=== PATIENT | female | born 1935 | race Caucasian/White ===

== ENCOUNTER → 2018-12-03 | Outpatient (CLI) | payer MEDICARE, BC ==
[~2018-12-03] VITALS: Ht 167.6 cm; Wt 78.9 kg
[~2018-12-03] MED LIST: ALEN70TA2 PO; ESTR0.62 PO; LIDOCAINE 1% INJ 20 ML 20 ML VIAL INJ ONE; NAPR220C11 PO
--- NOTE | 2018-12-03 20:02 | Diagnostic Imaging Report ---
INDICATION: Spiculated right breast mass. Patient presents for stereotactic biopsy. Patient was brought to the mammography suite, placed in a chair in a sitting upright position. The right breast was positioned lateral medial. The spiculated mass in the upper outer right breast posterior depth was stereotactically targeted. The skin was then prepped and draped in usual sterile fashion. Small amount of 1% lidocaine was utilized for local anesthesia. An 8-gauge biopsy needle was advanced into the right breast per the biopsy coordinates. A total of 4 core biopsies were obtained with a vacuum-assisted device. A localizing clip was then deployed. Post procedure image does show the clip did deploy beyond the margins of the biopsy needle. Followup mammogram, however, demonstrated clip to be not visible. This may be owing to the clip coming out of the tract during removal of the biopsy apparatus. Spiculated mass remains. Hemostasis obtained using manual compression. Patient tolerated the procedure well. Patient was sent for post procedure mammogram in satisfactory condition. Post procedure mammogram demonstrates biopsy changes to the spiculated mass in the upper outer right breast. No clip is visible. IMPRESSION: Successful stereotactically assisted biopsy of the spiculated mass in the upper outer right breast. Pathology results are currently pending. Dictated by: Dictated on workstation # [id number]
== END ==
LOC: RAD 10:19
PROVIDERS: ATTEND Nurse Practitioner Family
DX: C50.911 Malignant neoplasm of unspecified site of right female breast (principal)
CPT/HCPCS: 19081; 88305; 88360

== ENCOUNTER 2018-12-10 13:25 | Outpatient (CLI) | payer MEDICARE, BC ==
[~2018-12-10] VITALS: Ht 167.6 cm; Wt 78.9 kg
[2018-12-10] MEDS ORDERED: NAPR220C11 PO (13:34)
[2018-12-10] MEDS ORDERED: ESTR0.62 PO (13:34)
[2018-12-10] MEDS ORDERED: ALEN70TA2 PO (13:34)
[2018-12-14] MEDS ORDERED: ACHD5005 PO (15:18)
== END 2018-12-10 14:25 | disposition home or self-care (01) ==
LOC: PREOP 13:25
PROVIDERS: ATTEND Surgery
DX: Z01.818 Encounter for other preprocedural examination (principal)

== ENCOUNTER 2018-12-14 06:46 | Day surgery (SDC) | payer MEDICARE, BC ==
[~2018-12-14] VITALS: Ht 167.6 cm; Wt 78.9 kg
[~2018-12-14 06:46] MED LIST changes: -LIDOCAINE 1% INJ 20 ML 20 ML VIAL INJ ONE
[2018-12-14 06:54] VITALS: BP 151/72
[2018-12-14] MEDS ORDERED: LACTATED RINGERS 1,000 ML IV PRN (07:44)
[2018-12-14] MEDS ORDERED: ceFAZolin 2 GM IV Premixed 50 ML IV ONE (07:45)
[2018-12-14] MEDS ORDERED: ACET-2267 PO (07:53)
[2018-12-14] MEDS ORDERED: LIDOCAINE 1% INJ 20 ML 20 ML VIAL INJ ONE (09:00)
--- NOTE | 2018-12-14 11:34 | Diagnostic Imaging Report ---
INDICATION: Right breast carcinoma. Patient presents for right breast needle localization. TECHNIQUE: The patient was brought to the mammography suite and placed in a chair in a sitting upright position. The right breast was positioned lateral medial. The spiculated density in the upper outer right breast at posterior depth was stereotactically targeted. The skin of the right breast was then prepped and draped in the usual sterile fashion. A small amount of 1% lidocaine was utilized for local anesthesia. The localizing needle was advanced from a lateral medial approach and placed with its tip beyond the spiculated lesion. The hookwire was deployed and the needle was removed. A wire was fixed to the patient's skin. Followup mammography does show the hookwire extending just beyond the spiculated density. The wire appears to pass through the lesion. There is some density posterior and slightly medial to the lesion, consistent with a post biopsy hematoma/seroma. The localizer clip appears to be located within the hematoma. IMPRESSION: Successful right breast needle localization and hookwire deployment, as described. Dictated by: Dictated on workstation # [id number]
[2018-12-14] MEDS ORDERED: BUP/EPI 0.5% 1:200,000 (SENSORCAINE) 30 ML VIAL ONE (13:20)
[2018-12-14] MEDS ORDERED: METHYLENE BLUE (Antidote only) 100 MG/10 ML VIAL IV ONE (13:28)
[2018-12-14] MEDS ORDERED: DEXAMETHASONE 10 MG/ML (DECADRON) 1 ML VIAL ONE (13:35)
[2018-12-14] MEDS ORDERED: LIDOCAINE PF 2% 5 ML (XYLOCAINE) VIAL ONE (13:35)
[2018-12-14] MEDS ORDERED: MIDAZOLAM 2 MG/2 ML (VERSED) VIAL ONE (13:35)
[2018-12-14] MEDS ORDERED: ONDANSETRON 4 MG/2 ML (SDV) Z0FRAN ONE (13:35)
[2018-12-14] MEDS ORDERED: proPOfol 200 MG/20 ML (DIPRIVAN) VIAL IV ONE (13:35)
[2018-12-14] MEDS ORDERED: fentaNYL INJECTION 100 MCG/2 ML AMP ONE (13:35)
[2018-12-14] MEDS ORDERED: SEVOFLURANE (ULTANE) 15 ML INHAL SOLN ONE ×5 (13:35→15:26)
--- NOTE | 2018-12-14 15:13 | Progress Note-Pre Operative ---
Pre-Operative Progress Note H&P Reviewed The H&P was reviewed, patient examined and no changes noted. Date Seen by Provider: Dec 14, 2018 Time Seen by Provider: 13:00 Date H&P Reviewed: Dec 14, 2018 Time H&P Reviewed: 13:00 Pre-Operative Diagnosis: right breast cancer LISS PHIPPS MD Dec 14, 2018 15:13
[2018-12-14] MEDS ORDERED: HYDROcodone/APAP 5 MG/325 MG (LORTAB) TAB PO ONE (15:15)
[2018-12-14] MEDS ORDERED: morphine INJ 10 MG/ML 1ML (SYR OR VIAL) IVP PRN (15:15)
[2018-12-14] MEDS ORDERED: ACETAMINOPHEN 325 MG TABLET PO PRN (15:15)
[2018-12-14] MEDS ORDERED: ONDANSETRON 4 MG/2 ML (SDV) Z0FRAN IVP PRN ×2 (15:15→15:45)
--- NOTE | 2018-12-14 15:15 | Progress Note-Post Operative ---
Post-Operative Progess Note Surgeon (s)/Asphalt Coater (s) Surgeon LISS PHIPPS MD Asphalt Coater: none Pre-Operative Diagnosis right breast cancer Post-Operative Diagnosis same Procedure & Operative Findings Date of Procedure 12/14/18 Procedure Performed/Findings needle loc breast lumpectomy and sentinel node biopsy Anesthesia Type general LMA Estimated Blood Loss Estimated blood loss (mL): minimal Specimens/Packing Specimens Removed right breast lesion and sentinel node. LISS PHIPPS MD Dec 14, 2018 15:15
[2018-12-14] MEDS ORDERED: ACHD5005 PO (15:18)
--- NOTE | 2018-12-14 15:24 | Discharge Inst-Surgical ---
D/C Lap Instructions-MOISE New, Converted, or Re-Newed RX: RX on Chart Follow Up Appt in 2 weeks Activity as tolerated No driving for 24 hours No driving while on pain medications Incentive Spirometry use every 2 hours while awake Regular Diet Symptoms to Report: Fever over 101 degree F, Nausea/Vomiting Infection Signs and Symptoms to report: Increased redness, Foul odor of wound, Increased drainage Bathing instructions: May shower Operative Area Clean/Dry; Keep incision clean/dry If any problems/questions: Contact your physician or go to Emergency Room LISS PHIPPS MD Dec 14, 2018 15:24
[2018-12-14] MEDS ORDERED: morphine INJ 10 MG/ML 1ML (SYR OR VIAL) IVP ONE (15:45)
[2018-12-14 16:30] VITALS: BP 147/70
--- NOTE | 2018-12-14 16:30 | NUR ---
RIGHT LATERAL UPPER CHEST SURGICAL SITE PAIN RATED 6-[address] [facility]. PO FLUIDS AND CRACKERS PROVIDED.
--- NOTE | 2018-12-14 16:54 | NUR ---
LORTAB 5/325 MG, ONE TABLET, GIVEN PO.
[2018-12-14 17:10] VITALS: BP 147/66
--- NOTE | 2018-12-14 17:30 | NUR ---
ALERT, CHEERFUL AND TALKING WITH FAMILY IN ROOM. RATES SURGICAL SITE PAIN NOW 4-5. TAKING PO FLUIDS AND CRACKERS WITHOUT PROBLEM.
[2018-12-14 17:55] VITALS: BP 149/70
--- NOTE | 2018-12-14 17:55 | NUR ---
HAS BEEN UP TO BR WITH ASSIST, VOIDED BLUE/GREEN URINE WITHOUT PROBLEM. PAIN RATE 2-3. STATES SHE IS READY FOR DISMISSAL.
[2018-12-14 18:15] VITALS: BP 149/70
--- NOTE | 2018-12-14 21:18 | Diagnostic Imaging Report ---
INDICATION: Right breast lumpectomy. EXAM: Specimen radiograph was submitted. FINDINGS: The specimen does contain the hook wire and the spiculated mass. Spiculated mass is located at approximately the coordinates of G and H, 4 and 5. No suspicious calcifications are seen. IMPRESSION: Specimen radiograph, as described. Dictated by: Dictated on workstation # [id number]
--- NOTE | 2018-12-15 03:05 | OPERATIVE REPORT ---
DATE OF SERVICE: 12/14/2018 ATTENDING PRIMARY CARE PHYSICIAN: Noah Napier DO PREOPERATIVE DIAGNOSIS: Right breast cancer. POSTOPERATIVE DIAGNOSIS: Right breast cancer. PROCEDURE: Right breast needle localization breast lumpectomy and sentinel node biopsy, submucosal injection. SURGEON: Liss Phipps MD ANESTHESIA: General laryngeal mask airway. ESTIMATED BLOOD LOSS: Minimal. FINDINGS: No palpable lesion, no palpable axillary adenopathy. DISPOSITION: The patient tolerated the procedure well. INDICATIONS: The patient is an 82-year-old female who recently had her annual mammogram. Her most recent one on 11/24/2018 did show an 8 mm spiculated soft tissue mass in the upper outer quadrant of the right breast. This was suggestive of carcinoma and biopsy was recommended. She was sent for sterotactic biopsy, which did come back as an invasive ductal carcinoma grade II. She also underwent further workup, which did not show any signs of any metastatic disease. She has been doing monthly breast self-examinations; however, did not for approximately three to four months. She had been getting yearly mammograms since around age 42. She began menses around age 16 and went through menopause by having a complete hysterectomy at age 49. She has been on oral contraceptive pills for a few years in her life span. She has been on Premarin since her complete hysterectomy. She has been twice and given two live births. She does report that she did have a right breast lesion that was biopsied and found to be benign 10 years ago and a lesion of the left breast approximately 20 years ago, which was biopsied and found to be negative. DESCRIPTION OF PROCEDURE: The patient was brought to the operating room, laid supine on the table. After adequate IV pain and sedative medications and general laryngeal mask airway intubation, the chest, axilla and upper extremity were prepped and draped in standard surgical fashion. Using the digital mammography and the placement of the needle, we then proceeded with anesthetizing the skin in a crescent shape along the glabellar lines using 0.5% Marcaine with epinephrine. A skin incision was made using a 15 blade. The wire was then brought out through the skin incision. The wire site as well as the sentinel node were in close proximity to each other and we were able to remove the sentinel node as well as the mass with the same incision. We first proceeded with excision of the sentinel node. Before the procedure, a submucosal or subdermal injection of the nipple areolar complex was performed using isosulfan blue. Lymphoscintigraphy was also performed beforehand. Using the Krystina counter as well as identification of the blue dye, the sentinel node was identified. The sentinel node count was 13,300 with this background count of 300. The sentinel node was sent to pathology after excision using electrocautery. The frozen section was negative for malignancy. We then proceeded with excision of the lesion around the hook wire using Maryjo clamp so with a wide rim of breast tissue around the lesion around the wire electrocautery. The specimen was sent to pathology. Radiology first sent the pathology with the lesion fully excised. The incision was then irrigated with sterile water and a few interrupted Vicryl sutures were used to reapproximate the breast tissue and then the subcutaneous tissues were then reapproximated using 3-0 Vicryl interrupted suture and the skin was closed using 4-0 Monocryl running subcuticular suture. Wound was cleaned and covered with Dermabond. Her own bra was placed on followed by a gauze dressing for additional support. The patient tolerated the procedure well. We will start IV and oral pain medication as well as a clear liquid diet. Once she is tolerating clears, has good pain control with oral pain medication and is ambulating well, we will discharge her home. We will wait for final pathology report and have her do no heavy lifting or exertion for the next two weeks and to not raise her arm above 90 degrees. Job ID: [id number] DocumentID: [id number] Dictated Date: 12/14/2018 15:33:19 Spray Painter Date: 12/15/2018 03:04:17 Dictated By: LISS PHIPPS MD
== END 2018-12-14 18:15 | disposition home or self-care (01) ==
LOC: CARD 06:46
PROVIDERS: ATTEND Surgery
DX: C50.411 Malignant neoplasm of upper-outer quadrant of right female breast (principal); Z11.2 Encounter for screening for other bacterial diseases; M81.0 Age-related osteoporosis without current pathological fracture; Z88.5 Allergy status to narcotic agent; Z88.2 Allergy status to sulfonamides; Z79.899 Other long term (current) drug therapy; Z87.891 Personal history of nicotine dependence; Z80.3 Family history of malignant neoplasm of breast; Z80.0 Family history of malignant neoplasm of digestive organs; Z86.718 Personal history of other venous thrombosis and embolism
CPT/HCPCS: 76098; 87081; 93005

== ENCOUNTER 2019-12-13 13:30 | Inpatient (IN) | payer MEDICARE, BC ==
[~2019-12-13] VITALS: Ht 165.1 cm; Wt 84.7 kg
[~2019-12-13 13:30] MED LIST changes: +ACET-2267 PO; +ACHD5005 PO
[2019-12-13] MEDS ORDERED: CALCIUM CARBONATE 500 MG (TUMS) TAB.CHEW PO PRN (14:15)
[2019-12-13] MEDS ORDERED: LACTULOSE SYRUP 10GM/15ML (ENULOSE) 30ML UDC PO PRN (14:15)
[2019-12-13] MEDS ORDERED: ONDANSETRON 4 MG (ZOFRAN) ORAL DISSOLVE TAB PO PRN (14:15)
[2019-12-13] MEDS ORDERED: MELATONIN 3 MG TABLET PO PRN (14:15)
[2019-12-13] MEDS ORDERED: ACETAMINOPHEN 500 MG TAB (TYLENOL) PO PRN (14:15)
[2019-12-13] MEDS ORDERED: ALPRAZolam 0.25 MG (XANAX) TAB PO PRN (14:15)
[2019-12-13] MEDS ORDERED: LOPERAMIDE 2 MG (IMODIUM) TABLET PO PRN (14:15)
[2019-12-13] MEDS ORDERED: HYDROcodone/APAP 5 MG/325 MG (LORTAB) TAB PO PRN (14:15)
[2019-12-13] MEDS ORDERED: diphenhydrAMINE 25 MG TAB (BENADRYL) PO PRN (14:15)
[2019-12-13] MEDS ORDERED: FLEET ENEMA ADULT 1 EA BTL PR PRN (14:15)
[2019-12-13] MEDS ORDERED: BISACODYL 10 MG SUPP (DULCOLAX) PR PRN (14:15)
[2019-12-13] MEDS ORDERED: ENOXAPARIN 40 MG/0.4 ML (LOVENOX) SYR SC SCH (14:15)
[2019-12-13] MEDS ORDERED: CYCL10TA9 PO (15:35)
[2019-12-13] MEDS ORDERED: CALC-901 PO (15:35)
[2019-12-13] MEDS ORDERED: GABA-486 PO (15:35)
[2019-12-13] MEDS ORDERED: APIX2.5T PO (15:35)
--- NOTE | 2019-12-13 15:36 | NUR ---
ENTERED MED REC USING THE HOME MED LIST FROM [facility] WILL UPDATE MED REC AND NOTES AFTER I INTERVIEW THE PT Addendum: 12/15/19 at 1516 by FATOU DE LEON CPhT SPOKE WITH THE PT AND WENT THRU THE EXT MED HISTORY TO COMPLETE THE MED REC. THE FOLLOWING ITEMS HAVE BEEN REMOVED DUE TO THE PT NOT TAKING BEFORE [facility]: ELIQUIS 2.5MG CYCLOBENZAPRINE 10MG ACETAMINOPHEN 500MG MEDS THAT HAVE BEEN ADDED BACK: ALEVE 220MG GABAPENTIN: ON 12-13-2019 I ENTERED GABAPENTIN 100MG 1 HS (THIS WAS ON THE DISCHARGE FOR HER TO CONTINUE TO TAKE)- ON 12-13-2019 @1700 THE 100MG WAS DISCONTINUED AND 300MG WAS PUT IN ITS PLACE. I AM UNSURE WHERE THIS ORDER/INFORMATION CAME FROM, BUT AFTER SPEAKING WITH THE PHARMACISTS I WAS ADVISED TO REMOVE THE 300MG AND ADD BACK THE 100MG FOR PROPER DISCHARGE. CALCIUM W/ VIT D: PT WAS TAKING THIS BEFORE HER HOSPITALIZATION AND CAN CONTINUE TAKING PER THE DISCHARGE.
[2019-12-13 16:10] VITALS: BP 139/79
[2019-12-13 16:35] VITALS: BP 139/79
--- NOTE | 2019-12-13 17:07 | NUR ---
f pt name] admitted to room 229-1, with an admitting diagnosis of right knee replacement, on 12/13/19 from via wheelchair, accompanied by staff.CORNELL ROSS introduced to surroundings, call light, bed controls, phone, TV, temperature control, lights, meal times, smoking policy, visitor policy, side rail policy, bathrooms and showers. Patient Rights given to patient in the handbook.CORNELL ROSS verbalizes understanding that [facility] is not responsible for the loss or damage to any personal effects or valuables that are kept in the patients posession during their hospitalization. The following Patient Care Plans were discussed with the pt: Discharge Planning. CORNELL ROSS verbalizes understanding of Interdisciplinary Patient Education. Patient and/or family were informed about the Rapid Response Team and its purpose.
[2019-12-13] MEDS ORDERED: GABA-488 PO (17:10)
--- NOTE | 2019-12-13 20:03 | PM&R Post Admission Assessment ---
PM&R Date of Visit: Dec 13, 2019 Time of Visit: 18:30 History of Present Illness CC: Debility following right total knee replacement HPI: This is an 84yoWF clinic patient of Dr Napier and Dr Montoya who presents to IRF due to weakness and stiffness from arthritis following an uncomplicated right total knee replacement at [facility]. Patient reports her bowels are moving well and she is only taking Tylenol for the pain because Ultram gave her psychosis and narcotics oversedate her. Patient reports feeling very stiff due to not able to take NSAID's prior to surgery per protocol. Patient did have an isolated episode of AF following anesthesia but non-sustained. Patient has a h/o right breast cancer s/p resection by Dr Hagan and this is managed by Dr Montoya and last testing revealed patient was in remission. Patient has a h/o DVT so maintained on Eliquis BID. 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) Alcohol Use: Denies Use Recreational Drug Use: No Smoking Status: Former Smoker Former Smoker, Quit: Dec 13, 1979 2nd Hand Smoke Exposure: Yes Physical Abuse Screen: No Sexual Abuse: No Recent Foreign Travel: No Contact w/other who traveled: No Recent Hopitalizations: No Recent Infectious Disease Expo: No Immunizations Up To Date Date of Pneumonia Vaccine: Jul 28, 2006 Date of Influenza Vaccine: Jul 20, 2019 Seasonal Allergies Seasonal Allergies: No Past Medical History Surgeries: Hysterectomy, Orthopedic Cardiac: Deep Vein Thrombosis Sexually Transmitted Disease: No HIV/AIDS: No Hysterectomy Musculoskeletal: Osteoporosis, Arthritis Loss of Vision: Bilateral Hearing Impairment: Denies Cancer: Breast Did You Recieve Any Treatments: No What Type of Treatment Did You: Surgical Intervention History of Blood Disorders: No Adverse Reaction to Blood Chirsty: No (N/A) Family History Patient reports no known family medical history. PM&R Allergy/Meds/Data Review Allergies Coded Allergies: tramadol (Verified Allergy, Intermediate, 12/13/19) Psychosis codeine (Verified Allergy, Mild, CODIENE, 12/10/18) Sulfa (Sulfonamide Antibiotics) (Verified Adverse Reaction, Mild, N/V, 12/14/18) meperidine (Verified Adverse Reaction, Mild, GI UPSET, 12/14/18) Home Medications Scheduled Apixaban (Eliquis), 2.5 MG PO BID, (Reported) Calcium Carbonate/Vitamin D3 (Calcium 600 + Vit D 800 Tab), 1 EACH PO 1200, (Reported) Gabapentin (Gabapentin), 300 MG PO HS, (Reported) Scheduled PRN Acetaminophen (Tylenol Extra Strength), 1,000 MG PO Q8H PRN for PAIN-MILD, (Reported) Discontinued Medications Alendronate Sodium (Fosamax), 70 MG PO WEEK, (Reported) Discontinued Reason: No Longer Taking Cyclobenzaprine HCl (Cyclobenzaprine HCl), 10 MG PO Q8H PRN for MUSCLE SPASMS, (Reported) Discontinued Reason: No Longer Taking Estrogens, Conjugated (Premarin), 0.625 MG PO DAILY, (Reported) Discontinued Reason: No Longer Taking Gabapentin (Gabapentin), 100 MG PO HS, (Reported) Discontinued Reason: Provider Change Hydrocodone Bit/Acetaminophen (Hydrocodone/Acetaminophen 5/325mg Tablet), 1 TAB PO Q4-6HR PRN for PAIN-MODERATE Discontinued Reason: No Longer Taking Naproxen Sodium (Aleve), 220 MG PO DAILY, (Reported) Discontinued Reason: No Longer Taking Current Medications Current Medications Reviewed Review of Systems Constitutional: see HPI, malaise, weakness Musculoskeletal: joint pain, muscle pain, muscle stiffness, muscle cramps Physical Exam Physical Exam Vital Signs Vital Signs - First Documented 12/13/19 16:10 Temp 36.8 Pulse 87 Resp 20 B/P (MAP) 139/79 (99) Pulse Ox 96 O2 Delivery Room Air Capillary Refill : Height, Weight, BMI Height: 5'6.00" Weight: 174lbs. 0.0oz. [id number]; 29.38 BMI Method: General Appearance: No Apparent Distress, WD/WN Eyes: Bilateral Eye Normal Inspection, Bilateral Eye PERRL HEENT: PERRL/EOMI, Normal ENT Inspection, Pharynx Normal Neck: Full Range of Motion, Normal Inspection, Non Tender, Supple, Carotid Bruit Respiratory: Chest Non Tender, Lungs Clear, Normal Breath Sounds, No Accessory Muscle Use, No Respiratory Distress Cardiovascular: Regular Rate, Rhythm, No Edema, No Gallop, No JVD, No Murmur, Normal Peripheral Pulses Gastrointestinal: Normal Bowel Sounds, No Organomegaly, No Pulsatile Mass, Non Tender, Soft Back: Normal Inspection, No CVA Tenderness, No Vertebral Tenderness Extremity: Normal Capillary Refill, Normal Inspection, Normal Range of Motion (except right leg post op), Non Tender, No Calf Tenderness, No Pedal Edema Neurologic/Psychiatric: Alert, Oriented x3, No Motor/Sensory Deficits, Normal Mood/Affect Skin: Normal Color, Warm/Dry Lymphatic: No Adenopathy PM&R Medical Assessment & Plan REHAB/MEDICAL ASSESSMENT AND PLAN: REHAB IMPAIRMENT GROUP: Right total knee replacement ETIOLOGIC DIAGNOSIS: Right total knee replacement The comorbidities that impact the patients function and/or functional outcome by: advanced age, stiffness from arthritis, h/o DVT, breast cancer REHAB PLAN: The patient is being admitted to our comprehensive inpatient rehabilitation facility and can tolerate the intensity of service consisting of at least: 180 minutes of therapy a day, 5 out of 7 days a week Rehab treatment will consist of: PT OT will focus on muscle stretching and ambulation support with fall risk prevention The patient/family has a good understanding of our discharge process and will benefit from an interdisciplinary inpatient rehabilitation program. The patient has potential to make improvement and is in need of at least two of the following multidisciplinary therapies including but not limited to physical, occupational, speech, and prosthetics and orthotics. Additionally the patient will need services from respiratory, nutritional services, wound care, psychology, etc. (Customize this to each patient). Given the patients complex condition and risk of further medical complications, rehabilitation services cannot be safely or effectively provided at a lower level of care such as a prison facility. BARRIERS TO DISCHARGE: Lives alone ESTIMATED LOS: 7 days DISPOSITION: Home RELEVANT CHANGES SINCE PREADMISSION SCREENING: I have compared the patients medical and functional status at the time of the preadmission screening and there are: no changes PROGNOSIS: Good REHABILITATION GOALS: 1.PT OT will focus on muscle stretching and ambulation support with fall risk prevention All the above goals were reviewed with the patient and he/she is in agreement. By signing this document, I acknowledge that I have personally performed a full physical examination on this patient within 24 hours of admission to this inpatient rehabilitation facility and have determined the patient to be able to tolerate the above course of treatment at an intensive level for a reasonable period of time. I will be completing a detailed individualized Plan of Care for this patient by day #4 of the patients stay based upon the Preadmission Screen, the Post-Admission Evaluation, and the therapy evaluations. Admission Dx/Comorbidities: (1) Status post right knee replacement ICD Codes: Z96.651 - Presence of right artificial knee joint (2) History of DVT of lower extremity ICD Codes: Z86.718 - Personal history of other venous thrombosis and embolism (3) Anticoagulant prescribed (4) Arthritis ICD Codes: M19.90 - Unspecified osteoarthritis, unspecified site (5) Advanced age ICD Codes: R54 - Age-related physical debility (6) Atrial fib/flutter, transient (7) Breast cancer, right ICD Codes: C50.911 - Malignant neoplasm of unspecified site of right female breast TONG GENTILE DO Dec 13, 2019 20:03
[2019-12-13] MEDS ORDERED: GABAPENTIN 100 MG (NEURONTIN) CAP PO SCH (21:00)
[2019-12-13] MEDS: GABAPENTIN 100 MG (NEURONTIN) CAP PO SCH (21:10)
[2019-12-13] MEDS: APIXABAN 2.5 MG (ELIQUIS) TABLET PO SCH (21:10)
[2019-12-13] MEDS: SENNA W/DOCUSATE (SENOKOT S) TABLET PO SCH (21:11)
[2019-12-13] MEDS: polyethylene glycoL POWDER 17 GM (MIRALAX) PACK PO SCH (21:11)
[2019-12-13] MEDS: ACETAMINOPHEN 500 MG TAB (TYLENOL) PO PRN (21:27)
[2019-12-14 05:10] VITALS: BP 152/75
[2019-12-14] MEDS: ACETAMINOPHEN 500 MG TAB (TYLENOL) PO PRN (06:16)
[2019-12-14 07:01] LABS: BASOPHILS % (AUTO) 0 % (0-10); EOSINOPHILS # (AUTO) 0.3 10^3/uL (0.0-0.3); EOSINOPHILS % (AUTO) 3 % (0-10); HEMATOCRIT 31 % (35-52); HEMOGLOBIN 10.3 G/DL (11.5-16.0); LYMPHOCYTES # (AUTO) 1.4 X 10^3 (1.0-4.0); LYMPHOCYTES % (AUTO) 17 % (12-44); MEAN CORPUSCULAR HEMOGLOBIN 33 PG (25-34); MEAN CORPUSCULAR HGB CONC 33 G/DL (32-36); MEAN CORPUSCULAR VOLUME 98 FL (80-99); MEAN PLATELET VOLUME 10.4 FL (7.4-10.4); MONOCYTES # (AUTO) 1.2 X 10^3 (0.0-1.0); MONOCYTES % (AUTO) 14 % (0-12); NEUTROPHILS # (AUTO) 5.5 X 10^3 (1.8-7.8); NEUTROPHILS % (AUTO) 65 % (42-75); PLATELET COUNT 280 10^3/uL (130-400); RED CELL DISTRIBUTION WIDTH 14.2 % (10.0-14.5); WHITE BLOOD COUNT 8.4 10^3/uL (4.3-11.0)
[2019-12-14 07:33] LABS: ALANINE AMINOTRANSFERASE 13 U/L (0-55); ALBUMIN 3.2 GM/DL (3.2-4.5); ALKALINE PHOSPHATASE 63 U/L (40-136); BILIRUBIN,TOTAL 0.6 MG/DL (0.1-1.0); BUN/CREATININE RATIO 19; CALCIUM 8.5 MG/DL (8.5-10.1); CARBON DIOXIDE 24 MMOL/L (21-32); CHLORIDE 110 MMOL/L (98-107); CREATININE SERUM 0.69 MG/DL (0.60-1.30); GFR ESTIMATED > 60; GLUCOSE 94 MG/DL (70-105); POTASSIUM 3.8 MMOL/L (3.6-5.0); SODIUM 143 MMOL/L (135-145); TOTAL PROTEIN 6.4 GM/DL (6.4-8.2)
--- NOTE | 2019-12-14 08:59 | Physical Therapy Evaluation ---
PT Evaluation-General Medical Diagnosis Admission Date Dec 13, 2019 at 16:19 Medical Diagnosis: right TKA Onset Date: Dec 10, 2019 Therapy Diagnosis Therapy Diagnosis: impaired mobility, strength, endurance, ROM Height/Weight Height (Feet): 5 Height (Inches): 6.00 Weight (Pounds): 174 Weight (Ounces): 0.0 Precautions Precautions/Isolations: Fall Prevention, Standard Precautions Weight Bear Status Right Lower Extremity: Right Weight Bearing/Tolerated Referral Physician: Nelly Elias DO Reason for Referral: Evaluation/Treatment Medical History Additional Medical History Past Medical History Surgeries: Hysterectomy, Orthopedic Cardiac: Deep Vein Thrombosis Sexually Transmitted Disease: No HIV/AIDS: No Hysterectomy Musculoskeletal: Osteoporosis, Arthritis Loss of Vision: Bilateral Hearing Impairment: Denies Cancer: Breast Did You Recieve Any Treatments: No What Type of Treatment Did You: Surgical Intervention History of Blood Disorders: No Adverse Reaction to Blood Christy: No (N/A) Reviewed History: Yes Social History Home: Assisted Living Current Living Status: Alone Entry Into Home: Level Entry Prior Prior Level of Function SCALE: Activities may be completed with or without assistive devices. 4-Jooxuhcohf-ydyaszt completes the activity by him/herself with no assistance from a helper. 5-Set-up or Clean-up Assistance-helper sets up or cleans up; patient completes activity. [place] assists only prior to or following the activity. 4-Supervision or Touching Assistance-helper provides verbal cues and/or touching/steadying and/or contact guard assistance as patient completes activity. Assistance may be provided throughout the activity or intermittently. 3-Partial/Moderate Assistance-helper does LESS THAN HALF the effort. Rock[place] lifts, holds or supports trunk or limbs, but provides less than half the effort. 2-Substantial/Maximal Assistance-helper does MORE THAN HALF the effort. [place] lifts or holds trunk or limbs and provides more than half the effort. 6-Sntcidihp-fgubgk does ALL the effort. Patient does none of the effort to complete the activity. Or, the assistance of 2 or more helpers is required for the patient to complete the activity. If activity was not attempted, code reason: 7-Patient Refused. 9-Not Applicable-not attempted and the patient did not perform the activity before the current illness, exacerbation or injury. 10-Not Attempted due to Environmental Limitations-(lack of equipment, weather restraints, etc.). 88-Not Attempted due to Medical Conditions or Safety Concerns. Bed Mobility: 6 Transfers (B,C,W/C): 6 Gait: 6 Indoor Mobility (Ambulation): Independent PT Evaluation-Current Subjective Patient in recliner pre tx, agrees to PT, has 2/10 pain in right knee. Patient dons a sleeping gown over her pajamas with independence. Pt/Family Goals to be independent at home Objective Patient Orientation: Person, Place, Situation ROM/Strength ROM Lower Extremities right knee flexion 90 degrees, extension +3 degrees Sensory Vision: Wears Glasses Hearing: Functional Sensation Right Lower Extremit: Intact Sensation Left Lower Extremity: Intact Transfers Roll Left to Right (QC): 6 Sit to Lying (QC): 3 Lying to Sitting/Side of Bed(Q: 3 Sit to Stand (QC): 3 Chair/Wjk-pa-Wtcnf Xfer(QC): 4 Car Transfer (QC): 3 Patient performs bed mobility with independence, supine <-> sit with min assist, sit <-> stand min assist, transfers CGA, car transfer min assist. Occasional cues for hand placement and positioning. Gait Does the Patient Walk?: Yes Mode of Locomotion: Walk Anticipated Mode of Locomotion: Walk Walk 10 feet (QC): 4 Walk 50 ft with 2 Turns(QC): 4 Walk 150 ft (QC): 4 Walking 10ft/uneven surface-QC: 4 Distance: 150'x2 Gait Assistive Device: FWW Comments/Gait Description Patient can ambulate 150' with a rolling walker with CGA (including 50' with at least 2 turns of 90 degrees and 10' over an uneven surface). Patient ambulates slowly, has decreased step through on the left leg, slightly flexed right knee. Wheelchair Training Does the Pt Use a Wheelchair?: No Stairs #of Steps: 1 1 Step (curb) (QC): 4 4 Steps (QC): 88 12 Steps (QC): 88 Walking Assistive Device: Walker Patient can go up and down 1 step using a rolling walker with CGA. Cues for foot placement. Balance Sitting Static: Normal Sitting Dynamic: Normal Standing Static: Good Standing Dynamic: Good Picking up an Object (QC): 88 Treatment NuStep level 1 for 10 min, TKA protocol x20 (AP, QS, HS, SAQ, SLR). Assessment/Needs Patient has impaired mobility, strength, endurance, ROM. She has good ROM for a total knee at this point. Has trouble standing from lower surfaces. Rehab Potential: Fair PT Short Term Goals Short Term Goals Time Frame: Dec 21, 2019 Roll Left & Right: 6 Sit to lyin Lying to sitting on side of be: 4 Sit to stand: 4 Chair/wfp-cq-natvh transfer: 4 Walk 10 feet: 4 Walk 50 feet with two turns: 4 Walk 150 feet: 4 PT Custodial Goals Custodial Goals PT Custodial Goals Time Frame: Jan 04, 2020 Roll Left & Right (QC): 6 Sit to Lying (QC): 6 Lying-Sitting on Side/Bed(QC): 6 Sit to Stand (QC): 6 Chair/Sem-kw-Erkxs Xfer(QC): 6 Toilet Transfer (QC): 6 Car Transfer (QC): 6 Walk 10 feet (QC): 6 Walk 50ft with 2 Turns (QC): 6 Walk 150 ft (QC): 6 Walking 10ft on Uneven Surface: 6 PT Plan Problem List Problem List: Activity Tolerance, Functional Strength, Safety, Balance, Gait, Transfer, Bed Mobility, ROM Treatment/Plan Treatment Plan: Continue Plan of Care Treatment Plan: Bed Mobility, Education, Functional Activity Radha, Functional Strength, Group Therapy, Gait, Safety, Therapeutic Exercise, Transfers Treatment Duration: Jan 04, 2020 Frequency: At least 5 of 7 days/Wk (IRF) Estimated Hrs Per Day: 1.5 hours per day Patient and/or Family Agrees t: Yes Safety Risks/Education Patient Education: Gait Training, Transfer Techniques, Steps, Correct Positioning, Safety Issues Teaching Recipient: Patient Teaching Methods: Demonstration, Discussion Response to Teaching: Reinforcement Needed Discharge Recommendations Plan Patient will perform bed mobility and transfer training, balance and endurance training, functional strengthening, stair training, gait training, and education, to improve functional mobility and independence at home. Therapy Discharge Recommendati: Assisted Living, Home & Family Time/GCodes Time In: 0800 Time Out: 0900 Total Billed Treatment Time: 60 Total Billed Treatment 1 visit EVHector 30' GT 15' FA 15' JOSÉ JOHNSON PT Dec 14, 2019 08:59
[2019-12-14] MEDS: polyethylene glycoL POWDER 17 GM (MIRALAX) PACK PO SCH ×2 (09:04→22:36)
[2019-12-14] MEDS: APIXABAN 2.5 MG (ELIQUIS) TABLET PO SCH ×2 (09:04→21:47)
[2019-12-14] MEDS: SENNA W/DOCUSATE (SENOKOT S) TABLET PO SCH ×2 (09:05→22:36)
--- NOTE | 2019-12-14 09:17 | PM&R Progress Note ---
Subjective HPI/CC On Admission Date Seen by Provider: Dec 14, 2019 Time Seen by Provider: 09:00 Subjective/Events-last exam Pt doing very well Will schedule Tylenol Labs look good Hemoglobin 10.3 Does not need any stool softeners since she has loose bowels Denies any significant concerns Conferred with RN Reviewed therapy notes Checked meds and labs Review of Systems General: Fatigue Musculoskeletal: leg pain Objective Exam Vital Signs Vital Signs Date Time Temp Pulse Resp B/P (MAP) Pulse Ox O2 Delivery O2 Flow Rate FiO2 12/14/19 16:39 37.2 82 16 124/72 (89) 97 Room Air Capillary Refill : Less Than 3 Seconds General Appearance: No Apparent Distress, WD/WN HEENT: PERRL/EOMI, Normal ENT Inspection, Pharynx Normal Neck: Full Range of Motion, Normal Inspection, Non Tender, Supple, Carotid Bruit Respiratory: Chest Non Tender, Lungs Clear, Normal Breath Sounds, No Accessory Muscle Use, No Respiratory Distress Cardiovascular: Regular Rate, Rhythm, No Edema, No Gallop, No JVD, No Murmur, Normal Peripheral Pulses Gastrointestinal: Normal Bowel Sounds, No Organomegaly, No Pulsatile Mass, Non Tender, Soft Back: Normal Inspection, No CVA Tenderness, No Vertebral Tenderness Extremity: Normal Capillary Refill, Normal Inspection, Normal Range of Motion (except right leg post op), Non Tender, No Calf Tenderness, No Pedal Edema Neurologic/Psychiatric: Alert, Oriented x3, No Motor/Sensory Deficits, Normal Mood/Affect Skin: Normal Color, Warm/Dry Lymphatic: No Adenopathy Results/Procedures Lab Laboratory Tests 12/14/19 05:25 Patient resulted labs reviewed. FIM Transfers Therapy Code Descriptions/Definitions Functional [place] Measure: 0=Not Assessed/NA 4=Minimal Assistance 1=Total Assistance 5=Supervision or Setup 2=Maximal Assistance 6=Modified [place] 3=Moderate Assistance 7=Complete IndependenceSCALE: Activities may be completed with or without assistive devices. 8-Gsvdmitxwt-ekjpaxf completes the activity by him/herself with no assistance from a helper. 5-Set-up or Clean-up Assistance-helper sets up or cleans up; patient completes activity. [place] assists only prior to or following the activity. 4-Supervision or Touching Assistance-helper provides verbal cues and/or touching/steadying and/or contact guard assistance as patient completes acti vity. Assistance may be provided throughout the activity or intermittently. 3-Partial/Moderate Assistance-helper does LESS THAN HALF the effort. [place] lifts, holds or supports trunk or limbs, but provides less than half the effort. 2-Substantial/Maximal Assistance-helper does MORE THAN HALF the effort. [place] lifts or holds trunk or limbs and provides more than half the effort. 0-Kzwhvtzon-ngsefb does ALL the effort. Patient does none of the effort to complete the activity. Or, the assistance of 2 or more helpers is required for the patient to complete the activity. If activity was not attempted, code reason: 7-Patient Refused. 9-Not Applicable-not attempted and the patient did not perform the activity before the current illness, exacerbation or injury. 10-Not Attempted due to Environmental Limitations-(lack of equipment, weather restraints, etc.). 88-Not Attempted due to Medical Conditions or Safety Concerns. Roll Left to Right (QC): 6 Sit to Lying (QC): 3 Sit to Stand (QC): 3 Chair/Eaf-em-Dqwqc Xfer(QC): 4 Car Transfer (QC): 3 Gait Training Does the Patient Walk?: Yes Walk 10 feet (QC): 4 Walk 50 ft with 2 Turns(QC): 4 Walk 150 ft (QC): 4 Walking 10ft/uneven surface-QC: 4 Gait Assistive Device: FWW Wheelchair Training Does the Pt Use a Wheelchair?: No Stair Training #of Steps: 1 1 Step (curb) (QC): 4 4 Steps (QC): 88 12 Steps (QC): 88 Balance Picking up an Object (QC): 88 Assessment/Plan Assessment and Plan Assess & Plan/Chief Complaint Assessment: (1) Status post right knee replacement ICD Codes: Z96.651 - Presence of right artificial knee joint (2) History of DVT of lower extremity ICD Codes: Z86.718 - Personal history of other venous thrombosis and embolism (3) Anticoagulant prescribed (4) Arthritis ICD Codes: M19.90 - Unspecified osteoarthritis, unspecified site (5) Advanced age ICD Codes: R54 - Age-related physical debility (6) Atrial fib/flutter, transient (7) Breast cancer, right ICD Codes: C50.911 - Malignant neoplasm of unspecified site of right female breast Plan: IRF protocol Monitor hgbetsey Michael Pain control (1) Status post right knee replacement (2) History of DVT of lower extremity (3) Anticoagulant prescribed (4) Arthritis (5) Advanced age (6) Atrial fib/flutter, transient (7) Breast cancer, right TONG GENTILE DO Dec 14, 2019 09:17
--- NOTE | 2019-12-14 10:05 | NUR ---
Pastoral care visit, pt stated she was [employer] and would like to be on Communion list.
[2019-12-14] MEDS: CALCIUM CARB + VIT D 600 MG (CALCARB + D) TAB PO SCH (11:26)
[2019-12-14] MEDS ORDERED: NON-FORMULARY MEDICATION 1 EA EA (Calcium Carbonate/Vitamin D3 (Calcium 600 + Vit D 800 Ta PO SCH (12:00)
--- NOTE | 2019-12-14 12:24 | ST Cognitive Linguistic Eval ---
Speech Evaluation-General Medical Diagnosis right TKA Therapy Diagnosis Therapy Diagnosis: Cognitive-communication Referral Referring Physician: Dr. Elias Reason for Referral: Evaluation/Treatment Medical History Reviewed History: Yes Social History Current Living Status: Alone Speech PLF-Current Status Prior Level of Function Patient reported living in an assisted living apartment. Subjective Patient was alert, upbeat, and cooperative for all evaluation tasks. Patient reported that she was feeling great and having no problems. Patient sat upright in his bed for the duration of the evaluation. Language Eval: Auditory Comprehends Simple Yes/No Ques: Functional Indent/Objects Multiple Davis: Functional Ident/Pics in Multiple Davis: Functional Follows 1-Step Commands: Functional Follows Complex Directions: Functional Follows General Conversations: Functional Language Eval: Verbal Language Completes Spontaneous Greeting: Functional Produces Auto, Serial Info: Functional Imitates Simple Words/Phrases: Functional Word Finding: Functional Requests Basic Needs: Functional States Basic Personal Info: Functional Expresses Complex Ideas: Functional Objective Cognitive Domain Attention: WNL Memory: WNL Problem Solving: Functional Executive Functions: WNL Visuospatial Skills: WNL Composite Severity Rating: WNL Clock Drawing Severity Rating: WNL Objective Formal/Standardized Tests [facility] Mental Status (UMS) Examination was administered. Results The patient was administered the SLUMS and scored 28/30 which falls within normal limits of cognitive function. Oral Motor/Speech Production Within functional limits. Impression The patient is an 84-year-old female who was admitted to the ARU s/p knee surgery. Patient was administered the SLUMS and scored a 28/30 which falls within normal limits of cognitive functions. The patient does not require skilled ST therapy at this time due to adequate cognitive-communication skills and effectively communicating wants/needs. 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 Treatment Plan Speech Therapy Treatment Plan: Discontinue ST Treatment Duration: Dec 14, 2019 Frequency: 1 time per week Estimated Hrs Per Day: .25 hour per day Rehab Potential: Fair Barriers to Learning: None identified Pt/Family Agrees to Plan: Yes Safety Risks/Education Teaching Recipient: Patient Teaching Methods: Demonstration, Discussion Response to Teaching: Verbalize Understanding Education Topics Provided: Evaluation tasks and areas of cognition assessed Time Speech Therapy Time In: 11:00 Speech Therapy Time Out: 11:15 Total Billed Time: 15 Billed Treatment Time 1, RAHEEL Meneses Dec 14, 2019 11:57
--- NOTE | 2019-12-14 12:54 | Occupational Therapy Eval ---
OT Evaluation-General/PLF Medical Diagnosis Admission Date Dec 13, 2019 at 16:19 Medical Diagnosis: right TKA Onset Date: Dec 10, 2019 Therapy Diagnosis Therapy Diagnosis: decreased self care skills Height/Weight Height (Feet): 5 Height (Inches): 6.00 Weight (Pounds): 174 Weight (Ounces): 0.0 Precautions Precautions/Isolations: Fall Prevention, Standard Precautions Safety Interventions: None Referral Physician: Nlely Elias DO Medical History Current History Pt s/p elective right TKA Social History Home: Assisted Living Current Living Status: Alone Entry Into Home: Level Entry ADL-Prior Level of Function SCALE: Activities may be completed with or without assistive devices. 5-Kdwifbkofp-jjuvbvu completes the activity by him/herself with no assistance from a helper. 5-Set-up or Clean-up Assistance-helper sets up or cleans up; patient completes activity. [place]lin assists only prior to or following the activity. 4-Supervision or Touching Assistance-helper provides verbal cues and/or touching/steadying and/or contact guard assistance as patient completes activity. Assistance may be provided throughout the activity or intermittently. 3-Partial/Moderate Assistance-helper does LESS THAN HALF the effort. Merlin lifts, holds or supports trunk or limbs, but provides less than half the effort. 2-Substantial/Maximal Assistance-helper does MORE THAN HALF the effort. Merlin lifts or holds trunk or limbs and provides more than half the effort. 3-Rpokbogxp-fkqbpm does ALL the effort. Patient does none of the effort to complete the activity. Or, the assistance of 2 or more helpers is required for the patient to complete the activity. If activity was not attempted, code reason: 7-Patient Refused. 9-Not Applicable-not attempted and the patient did not perform the activity before the current illness, exacerbation or injury. 10-Not Attempted due to Environmental Limitations-(lack of equipment, weather restraints, etc.). 88-Not Attempted due to Medical Conditions or Safety Concerns. ADL PLOF Comments Pt reports being independent with self care and mobility. 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 Reports 5/10 pain in right knee. Mental Status/Objective Patient Orientation: Person, Place, Situation Current Glasses/Contacts: Yes Dentures/Partials: Yes Hand Dominance: Right Upper Extremity ROM Grossly WFL Upper Extremity Coordination Intact Upper Extremity Strength Grossly 4/5 ADL-Treatment Eating (QC): 6 (Pt reports feeding self and managing all containers without assist) Shower/Bathe Self (QC): 4 (SBA to wash/dry all areas) Upper Body Dressing (QC): 3 (Min assist to hook bra in back. Dons pullover shirt with set up) Lower Body Dressing (QC): 4 (Doffs lower body clothing without assist. Able to thread bilateral LE into Depends and pants with set up. Stood with CGA for pant hike) On/Off Footwear (QC): 3 (Pt able to doff/don socks with set up. Assist required only to don PAULY hose.) Toileting Hygiene (QC): 4 (CGA for balance during clothing management) Pt requires increased time and occasional rest breaks during ADL completion. Pt resting in bed with needs met after session. Education OT Patient Education: Rehab process Teaching Recipient: Patient Teaching Methods: Discussion Response to Teaching: Verbalize Understanding OT Client Server Developer Goals Client Server Developer Goals Time Frame: Dec 28, 2019 Eating (QC): 6 Oral Hygiene (QC): 6 Toileting Hygiene (QC): 6 Shower/Bathe Self (QC): 6 Upper Body Dressing (QC): 6 Lower Body Dressing (QC): 6 On/Off Footwear (QC): 6 Additional Goals: 1-Demonstrate ADL Tasks, 2-Verbalize Understanding, 3- ImproveStrength/Radha 1=Demonstrate adherence to instructed precautions during ADL tasks. 2=Patient will verbalize/demonstrate understanding of assistive devices/modifications for ADL. 3=Patient will improve strength/tolerance for activity to enable patient to perform ADL's. OT Education/Plan Problem List/Assessment Assessment: Decreased Activ Tolerance, Decreased UE Strength, Dependent Transfers, Impaired Self-Care Skills Pt s/p right TKA with decreased mobility and ADL functioning. Pt to benefit from skilled OT intervention for ADL training, transfers, strengthening, and home safety education to increase level of independence and allow safe discharge home. Discharge Recommendations Plan/Recommendations: Continue POC Treatment Plan/Plan of Care Treatment,Training & Education: Yes Patient would benefit from OT for education, treatment and training to promote independence in ADL's, mobility, safety and/or upper extremity function for ADL's. Plan of Care: ADL Retraining, Functional Mobility, Group Exercise/Act as Ind, UE Funct Exercise/Act Treatment Duration: Dec 28, 2019 Frequency: At least 5 of 7 days/Wk (IRF) Estimated Hrs Per Day: 1.5 hours per day Rehab Potential: Fair Time/GCodes Start Time: 09:00 Stop Time: 10:30 Total Time Billed (hr/min): 90 Billed Treatment Time 1 visit, EVL(20minutes), ADLx5(70minutes) ISIAH MOODY OT Dec 14, 2019 12:54
--- NOTE | 2019-12-14 13:22 | NUR ---
"RD ASSESSMENT PMHx: DVT; osteoporosis; CA(breast) PT INTERACTION: Pt was awake and pleasant during nutrition assessment. Pt states current appetite is good, and has been for some time. Note PO intake of 50% x1meal, per chart review. Pt states following a regular diet at home and has no issues with chewing/swallowing food. Pt states no recent issues with n/v/c/d at this time, and that her last BM was 3/3. Note pt currently on bowel regimen of senna BID; and miralax BID, per chart review. Pt states no recent wt changes. Note unable to determine recent wt hx, per chart review. ABNORMAL NUTRITION-RELATED LAB VALUES LOW: HIGH: Cl 110 Est. kcal needs: 8007-1567 kcal | 25-30 kcal/kg Est. Pro needs: 63-79 g Pro | 0.8-1.0 g Pro/kg PES STATEMENT: Inadequate oral intake (NI-2.1) related to loss of appetite as evidenced by pt interview | PO intake of 50% x1meal INTERVENTION: Continue with current diet order of Regular diet. Pt may benefit from nutrition supplementation if PO intake declines. Will continue to follow and reassess as pt needs, intake and status change. MONITOR/EVALUATE: PO Intake; Plan of Care; Hydration Status; Weight Status; Lab Values Lizeth Escobar, MS, RD, LD"
--- NOTE | 2019-12-14 13:59 | Physical Therapy Daily Note ---
PT Daily Note-Current Subjective Patient sitting EOB pre tx, agrees to PT, has 2/10 pain in right knee. Appearance Patient in bed post tx with nurse call, phone, tray, [facility] care on. Mental Status Patient Orientation: Normal For Age Transfers SCALE: Activities may be completed with or without assistive devices. 6-Tckneilwbu-ayvggwg completes the activity by him/herself with no assistance from a helper. 5-Set-up or Clean-up Assistance-helper sets up or cleans up; patient completes activity. [place] assists only prior to or following the activity. 4-Supervision or Touching Assistance-helper provides verbal cues and/or touching/steadying and/or contact guard assistance as patient completes activity. Assistance may be provided throughout the activity or intermittently. 3-Partial/Moderate Assistance-helper does LESS THAN HALF the effort. [place] lifts, holds or supports trunk or limbs, but provides less than half the effort. 2-Substantial/Maximal Assistance-helper does MORE THAN HALF the effort. [place] lifts or holds trunk or limbs and provides more than half the effort. 8-Ozfjbcxsx-txwgej does ALL the effort. Patient does none of the effort to complete the activity. Or, the assistance of 2 or more helpers is required for the patient to complete the activity. If activity was not attempted, code reason: 7-Patient Refused. 9-Not Applicable-not attempted and the patient did not perform the activity before the current illness, exacerbation or injury. 10-Not Attempted due to Environmental Limitations-(lack of equipment, weather restraints, etc.). 88-Not Attempted due to Medical Conditions or Safety Concerns. Roll Left & Right (QC): 6 Sit to Lying (QC): 3 Sit to Stand (QC): 3 Chair/Snh-vp-Eywzu Xfer(QC): 4 Weight Bearing Right Lower Extremity: Right Weight Bearing/Tolerated Gait Training Distance: 150'x2 Walk 10 feet (QC): 4 Walk 50 ft with 2 Turns(QC): 4 Walk 150 ft (QC): 4 Gait Persons Needed: 1 Gait Assistive Device: FWW CGA, good step through ambulation, brisker pace Stair Training Stair Training: Handrails/: 2 handrails #of Steps: 4 1 Step (curb) (QC): 4 4 Steps (QC): 4 Stairs: Pattern: Step to close guarding, cues for foot placement Exercises Seated Therapy Exercises: Ankle pumps, Long arc quads, Hip flexion Seated Reps: 20 Treatments bed mobility and transfers, ambulation, LE strengthening, stair training Assessment Current Status: Fair Progress improving ambulation PT Short Term Goals Short Term Goals Time Frame: Dec 21, 2019 Roll Left & Right: 6 Sit to lyin Lying to sitting on side of be: 4 Sit to stand: 4 Chair/yub-kz-nzfhd transfer: 4 Walk 10 feet: 4 Walk 50 feet with two turns: 4 Walk 150 feet: 4 PT Bottling Room Worker Goals Fpc Goals PT Bottling Room Worker Goals Time Frame: Jan 04, 2020 Roll Left & Right (QC): 6 Sit to Lying (QC): 6 Lying-Sitting on Side/Bed(QC): 6 Sit to Stand (QC): 6 Chair/Iuz-ta-Kbqgn Xfer(QC): 6 Toilet Transfer (QC): 6 Car Transfer (QC): 6 Walk 10 feet (QC): 6 Walk 50ft with 2 Turns (QC): 6 Walk 150 ft (QC): 6 Walking 10ft on Uneven Surface: 6 PT Plan Problem List Problem List: Activity Tolerance, Functional Strength, Safety, Balance, Gait, Transfer, Bed Mobility, ROM Treatment/Plan Treatment Plan: Continue Plan of Care Treatment Plan: Bed Mobility, Education, Functional Activity Radha, Functional Strength, Group Therapy, Gait, Safety, Therapeutic Exercise, Transfers Treatment Duration: Jan 04, 2020 Frequency: At least 5 of 7 days/Wk (IRF) Estimated Hrs Per Day: 1.5 hours per day Patient and/or Family Agrees t: Yes Safety Risks/Education Patient Education: Gait Training, Transfer Techniques, Steps, Correct Positioning, Safety Issues Teaching Recipient: Patient Teaching Methods: Demonstration, Discussion Response to Teaching: Reinforcement Needed Time/GCodes Time In: 1330 Time Out: 1400 Total Billed Treatment Time: 30 Total Billed Treatment 1 visit EX 10' GT 20' JOSÉ JOHNSON PT Dec 14, 2019 13:59
[2019-12-14] MEDS: ACETAMINOPHEN 500 MG TAB (TYLENOL) PO SCH ×2 (14:01→21:56)
--- NOTE | 2019-12-14 14:12 | NUR ---
CM/SS ADMISSION Patient was admitted to ARU from [facility] 12/13/19 status post Right TKA. Other comorbidities include, in part, history DVT LE, arthritis, history right breast CA, inability to take/tolerate some medications that could manage pre and post op symptoms. Prior to hospitalization patient resided in a duplex at [facility] in [facility] [place] and was IADL, she will return there when able. She continues to drive and manage all errands, business, activities. 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 She reports taking a leave of absence when her spouse needed care at home and he passed on 2018. PCP: Dr. Noah Napier, DO DME: Patient did not use DME prior to TKA, will explore needs and whether she has equipment from her spouse's care. [facility]: Yes, family will bring in copy. INSURANCE: Medicare, Blue Cross of [place] CONTACTS: Patient has two children. Mark Abarca (Sunita), son [address] [place] [address] Patient states that Mark is President of [employer] in [place]. Libby Wooten, Daughter [address] [place] [address] Patient understands the purpose and process of the weekly team conference as it relates to discharge planning.
[2019-12-14 16:39] VITALS: BP 124/72
--- NOTE | 2019-12-14 20:02 | Individualized Plan of Care ---
Individualized Plan of Care Rehab Nursing IPOC Order Admission Date Dec 13, 2019 at 16:19 Current Orders Orders Admission Order(Inpt,Obs,Sdc) (12/13/19 14:03) Vital Signs: Per Unit Policy ( 08,16,00 (12/13/19 14:03) Ronnie Gottlieb 09,21 (12/13/19 14:03) Sequential Compression Device Q4H (12/13/19 14:03) Casting Tester-Inpt Rehab Con (12/13/19 14:03) Rehab Nursing Orders-Ipoc (12/13/19 14:03) Physical Therapy Rehab Orders (12/13/19 14:03) Occupational Therapy Rehab Ord (12/13/19 14:03) Speech Therapy Rehab Orders (12/13/19 14:03) Cbc With Automated Diff (12/14/19 06:00) Comprehensive Metabolic Panel (12/14/19 06:00) General/Regular (12/13/19 Dinner) Intake & Output ,14, (12/13/19 14:03) Precautions (Aru) (12/13/19 14:03) Weekly Weight WEEK (12/13/19 14:03) Rehab-Intensity Of Therapy (12/13/19 14:03) Initiate Admission Nursing Pro .admission (12/13/19 14:03) Acetaminophen Tablet (Tylenol Tablet) (12/13/19 14:15) Alprazolam Tablet (Xanax Tablet) (12/13/19 14:15) Calcium Carbonate Chew Tablet (Antacid C (12/13/19 14:15) Diphenhydramine Tablet (Benadryl Tablet) (12/13/19 14:15) Docusate Sodium Capsule (Colace Capsule) (12/13/19 14:15) Bisacodyl Suppository (Dulcolax Supposit (12/13/19 14:15) Lactulose Oral Solution (Enulose Oral So (12/13/19 14:15) Na Phos/Na Biphos Enema (Fleet Enema Jesse (12/13/19 14:15) Hydrocodone/Apap 5/325 Tablet (Lortab 5 (12/13/19 14:15) Loperamide Tablet (Imodium Tablet) (12/13/19 14:15) Enoxaparin Injection (Lovenox Injection) (12/13/19 14:15) Melatonin Tablet (Melatonin Tablet) (12/13/19 14:15) Polyethylene Glycol Powder Pkt (Miralax (12/13/19 21:00) Ondansetron Oral Dissolve Tab (Zofran (12/13/19 14:15) Senna S Tablet (Senokot S Tablet) (12/13/19 21:00) Tramadol Tablet (Ultram Tablet) (12/13/19 14:15) Initiate Admission Nursing Pro .admission (12/13/19 14:03) Acetaminophen Tablet (Tylenol Tablet) (12/13/19 16:00) Apixaban Tablet (Eliquis Tablet) (12/13/19 21:00) Cyclobenzaprine Tablet (Flexeril Tablet) (12/13/19 16:00) Gabapentin Capsule/Tablet (Neurontin Cap (12/13/19 21:00) (Nf) Calcium Carbonate/Vitamin D3 (Calci (12/14/19 12:00) Gabapentin Capsule/Tablet (Neurontin Cap (12/13/19 21:00) Ambulate 08,12,20 (12/13/19 17:02) Sequential Compression Device Q4H (12/13/19 17:02) Dvt/Vte Risk - Notifiy Physici Q4H (12/13/19 17:02) Calcium Carbonate W/Vitamin D3 (Calcarb (12/14/19 12:00) Iron Test (Fe) (12/14/19 06:00) Acetaminophen Tablet (Tylenol Tablet) (12/14/19 14:00) Patient Visit (12/14/19 ) Pt Eval Moderate Complexity (12/14/19 ) Gait Training, Ea 15 Min (12/14/19 ) Functional Activities, Ea 15 (12/14/19 ) Patient Visit (12/14/19 ) Speech Sound Lang Comp (12/14/19 ) Ferrous Sulfate Tablet (Feosol Tablet) (12/15/19 11:00) Patient Visit (12/15/19 ) Gait Training, Ea 15 Min (12/15/19 ) Exercise Therap, Ea 15 Min (12/15/19 ) Patient Visit (12/15/19 ) Rehab Nursing Orders: Ongoing Assess. of Cognitive Status, Ongoing Assess. of Function Status, Bladder Management, Bladder Scan, Bladder Training, Bowel Management, Bowel Training, Disease Management & Educaiton, DVT Prophylaxis, Fall Prevention, Fluid/Electrolyte/Nutrition Mgmt, Infection Prevention, Medication Management & Education, Management of Risks & Complications, Management of Skin Intergrity, Nutrition Management, Pain Management, Patient/Family Support, Safety Management Intensity of Therapy to be met Patient to be seen: Min.3h per day/5 of 7d PT IPOC Problem List: Activity Tolerance, Functional Strength, Safety, Balance, Gait, Transfer, Bed Mobility, ROM Treatment Plan: Continue Plan of Care Bed Mobility, Education, Functional Activity Radha, Functional Strength, Group Therapy, Gait, Safety, Therapeutic Exercise, Transfers Treatment Duration: Jan 04, 2020 Frequency: At least 5 of 7 days/Wk (IRF) Estimated Hrs Per Day: 1.5 hours per day OT IPOC Problems: Decreased Activ Tolerance, Decreased UE Strength, Dependent Transfers, Impaired Self-Care Skills OT Treatment, Training and Edu: Yes OT Problems Pt s/p right TKA with decreased mobility and ADL functioning. Pt to benefit from skilled OT intervention for ADL training, transfers, strengthening, and home safety education to increase level of independence and allow safe discharge home. Plan of Care: ADL Retraining, Functional Mobility, Group Exercise/Act as Ind, UE Funct Exercise/Act Treatment Duration: Dec 28, 2019 Frequency: At least 5 of 7 days/Wk (IRF) Estimated Hrs Per Day: 1.[address] IPOC Speech Therapy Treatment Plan: Discontinue ST Treatment Duration: Dec 14, 2019 Frequency: 1 time per week Estimated Hrs Per Day: .25 hour per day Casting Tester/Case Mgmt Casting Tester/Case Managemen: Discharge Planning Dietitian/Retail Specialist Dietitian/Retail Specialist to monitor nutritional status and make changes and/or recommendations as needed and work with speech pathology on dietary upgrades as the occur. Physician IPOC Medical Issues being managed closely and that require the 24 hour availability of a physician: Advanced age with recent major surgery at high risk for decompensation Medical Issues: Bowel/Bladder Function, DVT Prophylaxis, Falls Precautions, Fluid/Electrolyte/Nutrition Balance, Infection Protection, Pain Management Brief Synthesis of Preadmission Screen, Post-Admission Evaluation, and Therapy Evaluations: PT OT will focus on improving ambulation with new replacement and fall prevention in order to return home safely Medical Prognosis: Good Anticipated Length of Stay: 7 days TONG GENTILE DO Dec 14, 2019 20:02
[2019-12-14] MEDS: GABAPENTIN 100 MG (NEURONTIN) CAP PO SCH (21:47)
[2019-12-15 06:00] VITALS: BP 128/72
[2019-12-15] MEDS: ACETAMINOPHEN 500 MG TAB (TYLENOL) PO SCH ×3 (07:00→21:20)
--- NOTE | 2019-12-15 08:13 | PM&R Progress Note ---
Subjective HPI/CC On Admission Date Seen by Provider: Dec 15, 2019 Time Seen by Provider: 08:30 Subjective/Events-last exam Got a new polar ice apparatus. Iron 325 Mg every other day will be ordered. Denies any significant problems. Loose bowels will preclude any laxatives given. Will likely be ready to go next Friday. Conferred with RN Reviewed therapy notes Checked meds and labs Review of Systems General: Fatigue Musculoskeletal: leg pain Objective Exam Vital Signs Vital Signs Date Time Temp Pulse Resp B/P (MAP) Pulse Ox O2 Delivery O2 Flow Rate FiO2 12/15/19 20:00 Room Air 12/15/19 16:00 36.4 79 16 115/57 (76) 95 Capillary Refill : Less Than 3 SecondsLess Than 3 Seconds General Appearance: No Apparent Distress, WD/WN HEENT: PERRL/EOMI, Normal ENT Inspection, Pharynx Normal Neck: Full Range of Motion, Normal Inspection, Non Tender, Supple, Carotid Bruit Respiratory: Chest Non Tender, Lungs Clear, Normal Breath Sounds, No Accessory Muscle Use, No Respiratory Distress Cardiovascular: Regular Rate, Rhythm, No Edema, No Gallop, No JVD, No Murmur, Normal Peripheral Pulses Gastrointestinal: Normal Bowel Sounds, No Organomegaly, No Pulsatile Mass, Non Tender, Soft Back: Normal Inspection, No CVA Tenderness, No Vertebral Tenderness Extremity: Normal Capillary Refill, Normal Inspection, Normal Range of Motion (except right leg post op), Non Tender, No Calf Tenderness, No Pedal Edema Neurologic/Psychiatric: Alert, Oriented x3, No Motor/Sensory Deficits, Normal Mood/Affect Skin: Normal Color, Warm/Dry Lymphatic: No Adenopathy Results/Procedures Lab Patient resulted labs reviewed. FIM Transfers Therapy Code Descriptions/Definitions Functional [place] Measure: 0=Not Assessed/NA 4=Minimal Assistance 1=Total Assistance 5=Supervision or Setup 2=Maximal Assistance 6=Modified [place] 3=Moderate Assistance 7=Complete IndependenceSCALE: Activities may be completed with or without assistive devices. 1-Lzkgsrtrof-aptrkrc completes the activity by him/herself with no assistance from a helper. 5-Set-up or Clean-up Assistance-helper sets up or cleans up; patient completes activity. [place] assists only prior to or following the activity. 4-Supervision or Touching Assistance-helper provides verbal cues and/or touching/steadying and/or contact guard assistance as patient completes acti vity. Assistance may be provided throughout the activity or intermittently. 3-Partial/Moderate Assistance-helper does LESS THAN HALF the effort. [place] lifts, holds or supports trunk or limbs, but provides less than half the effort. 2-Substantial/Maximal Assistance-helper does MORE THAN HALF the effort. [place] lifts or holds trunk or limbs and provides more than half the effort. 5-Ltqhrfsby-yoawnm does ALL the effort. Patient does none of the effort to complete the activity. Or, the assistance of 2 or more helpers is required for the patient to complete the activity. If activity was not attempted, code reason: 7-Patient Refused. 9-Not Applicable-not attempted and the patient did not perform the activity before the current illness, exacerbation or injury. 10-Not Attempted due to Environmental Limitations-(lack of equipment, weather restraints, etc.). 88-Not Attempted due to Medical Conditions or Safety Concerns. Roll Left to Right (QC): 6 Sit to Lying (QC): 3 Sit to Stand (QC): 3 Chair/Voz-fz-Lacza Xfer(QC): 4 Car Transfer (QC): 3 Gait Training Does the Patient Walk?: Yes Distance: 150'x2 Walk 10 feet (QC): 4 Walk 50 ft with 2 Turns(QC): 4 Walk 150 ft (QC): 4 Walking 10ft/uneven surface-QC: 4 Gait Persons Needed: 1 Gait Assistive Device: FWW Wheelchair Training Does the Pt Use a Wheelchair?: No Stair Training Stair Training: Handrails/: 2 handrails #of Steps: 4 1 Step (curb) (QC): 4 4 Steps (QC): 4 12 Steps (QC): 88 Stairs: Pattern: Step to Balance Picking up an Object (QC): 88 ADL-Treatment Eating (QC): 6 (Pt reports feeding self and managing all containers without assist) Shower/Bathe Self (QC): 4 (SBA to wash/dry all areas) Upper Body Dressing (QC): 3 (Min assist to hook bra in back. Dons pullover shirt with set up) Lower Body Dressing (QC): 4 (Doffs lower body clothing without assist. Able to thread bilateral LE into Depends and pants with set up. Stood with CGA for pant hike) On/Off Footwear (QC): 3 (Pt able to doff/don socks with set up. Assist required only to don PAULY hose.) Toileting Hygiene (QC): 4 (CGA for balance during clothing management) Assessment/Plan Assessment and Plan Assess & Plan/Chief Complaint Assessment: (1) Status post right knee replacement ICD Codes: Z96.651 - Presence of right artificial knee joint (2) History of DVT of lower extremity ICD Codes: Z86.718 - Personal history of other venous thrombosis and embolism (3) Anticoagulant prescribed (4) Arthritis ICD Codes: M19.90 - Unspecified osteoarthritis, unspecified site (5) Advanced age ICD Codes: R54 - Age-related physical debility (6) Atrial fib/flutter, transient (7) Breast cancer, right ICD Codes: C50.911 - Malignant neoplasm of unspecified site of right female breast Plan: IRF protocol Monitor hgb and add iron QOD Eliquis Pain control (1) Status post right knee replacement (2) History of DVT of lower extremity (3) Anticoagulant prescribed (4) Arthritis (5) Advanced age (6) Atrial fib/flutter, transient (7) Breast cancer, right TONG GENTILE DO Dec 15, 2019 08:13
[2019-12-15] MEDS: APIXABAN 2.5 MG (ELIQUIS) TABLET PO SCH ×2 (08:58→20:13)
[2019-12-15] MEDS: polyethylene glycoL POWDER 17 GM (MIRALAX) PACK PO SCH ×2 (09:00→20:14)
[2019-12-15] MEDS: SENNA W/DOCUSATE (SENOKOT S) TABLET PO SCH ×2 (09:00→20:15)
--- NOTE | 2019-12-15 09:01 | Physical Therapy Daily Note ---
PT Daily Note-Current Subjective Pt. agrees to Rx and states she feels she has made progress. Pt. states her pain is at 4/10 with exercise Pain Location: Right Location Body Site: Knee Pain Description: Ache Mental Status Patient Orientation: Normal For Age Attachments: Polar Pack, Other-See Comments Transfers SCALE: Activities may be completed with or without assistive devices. 0-Ppeuylowzh-ikxnkcf completes the activity by him/herself with no assistance from a helper. 5-Set-up or Clean-up Assistance-helper sets up or cleans up; patient completes activity. [place] assists only prior to or following the activity. 4-Supervision or Touching Assistance-helper provides verbal cues and/or touching/steadying and/or contact guard assistance as patient completes activity. Assistance may be provided throughout the activity or intermittently. 3-Partial/Moderate Assistance-helper does LESS THAN HALF the effort. [place] lifts, holds or supports trunk or limbs, but provides less than half the effort. 2-Substantial/Maximal Assistance-helper does MORE THAN HALF the effort. [place] lifts or holds trunk or limbs and provides more than half the effort. 4-Xocjodleh-pnjhmp does ALL the effort. Patient does none of the effort to complete the activity. Or, the assistance of 2 or more helpers is required for the patient to complete the activity. If activity was not attempted, code reason: 7-Patient Refused. 9-Not Applicable-not attempted and the patient did not perform the activity before the current illness, exacerbation or injury. 10-Not Attempted due to Environmental Limitations-(lack of equipment, weather restraints, etc.). 88-Not Attempted due to Medical Conditions or Safety Concerns. Roll Left & Right (QC): 6 Sit to Lying (QC): 6 Lying to Sitting/Side of Bed(Q: 6 Sit to Stand (QC): 6 Chair/Egj-en-Leakv Xfer(QC): 6 Toilet Transfer (QC): 6 indep SLR and able to bring right knee up in bed after some work Weight Bearing Right Lower Extremity: Right Weight Bearing/Tolerated Gait Training Does the Patient Walk?: Yes Walk 10 feet (QC): 5 Walk 50 ft with 2 Turns(QC): 5 Walk 150 ft (QC): 5 Gait Persons Needed: 1 Gait Assistive Device: FWW equal step length and good pattern Exercises Supine Ex: Ankle pumps, Quad Set, Heel Slides, Short Arc Quads, Straight leg raise (indep x 5 reps on right), Hip abd/add Supine Reps: 20 Seated Therapy Exercises: Long arc quads, Hip flexion Seated Reps: 15 NuStep Minutes: 10 NuStep Workload: 4 Neuromuscular emphasized flexion and ext , also did presses Treatments toileted SBA to Mod I Assessment Current Status: Good Progress PT Short Term Goals Short Term Goals Time Frame: Dec 21, 2019 Roll Left & Right: 6 Sit to lyin Lying to sitting on side of be: 4 Sit to stand: 4 Chair/btb-uu-iaovv transfer: 4 Walk 10 feet: 4 Walk 50 feet with two turns: 4 Walk 150 feet: 4 PT Correction Goals Correction Goals PT Correction Goals Time Frame: Jan 04, 2020 Roll Left & Right (QC): 6 Sit to Lying (QC): 6 Lying-Sitting on Side/Bed(QC): 6 Sit to Stand (QC): 6 Chair/Has-zm-Aexjm Xfer(QC): 6 Toilet Transfer (QC): 6 Car Transfer (QC): 6 Walk 10 feet (QC): 6 Walk 50ft with 2 Turns (QC): 6 Walk 150 ft (QC): 6 Walking 10ft on Uneven Surface: 6 PT Plan Treatment/Plan Treatment Plan: Continue Plan of Care Treatment Plan: Bed Mobility, Education, Functional Activity Radha, Functional Strength, Group Therapy, Gait, Safety, Therapeutic Exercise, Transfers Treatment Duration: Jan 04, 2020 Frequency: At least 5 of 7 days/Wk (IRF) Estimated Hrs Per Day: 1.5 hours per day Patient and/or Family Agrees t: Yes Safety Risks/Education Patient Education: Gait Training, Transfer Techniques, Correct Positioning, Disease Process, Safety Issues Teaching Recipient: Patient Teaching Methods: Demonstration, Discussion Response to Teaching: Verbalize Understanding, Return Demonstration, Reinforcement Needed Time/GCodes Time In: 800 Time Out: 900 Total Billed Treatment Time: 60 Total Billed Treatment 1,GT25m,EX35m KARIN VÁSQUEZ MICROFILM MOUNTER Dec 15, 2019 09:00
[2019-12-15] MEDS ORDERED: FERROUS SULF 325 MG (IRON) TAB PO SCH (10:15)
--- NOTE | 2019-12-15 11:30 | Occupational Ther Daily Note ---
OT Current Status-Daily Note Subjective Pt sitting in chair, agrees to therapy. ADL-Treatment Pt declined shower, but would like a sponge bath. Sit to stand without assist. Gait to restroom with FWW. Pt completed transfer to [facility] [place] over toilet using grab bars for safety. Pt able to complete toileting hygiene and clothing management. Sponge bath completed while seated. Pt able to wash/dry all areas with set up and increased time. Pt donned pullover shirt with set up. Pt able to thread bilateral LE into pants. Stood with good balance during pant hike using FWW. Assist for PAULY hose only. Pt able to doff/don socks with set up. Pt completed oral care with modified independence while standing at sink. Pt requires increased time for ADL tasks. Pt sitting in chair with needs met after session. Therapy Code Descriptions/Definitions Functional [place] Measure: 0=Not Assessed/NA 4=Minimal Assistance 1=Total Assistance 5=Supervision or Setup 2=Maximal Assistance 6=Modified [place] 3=Moderate Assistance 7=Complete IndependenceSCALE: Activities may be completed with or without assistive devices. 7-Ehonuorcna-accsrcc completes the activity by him/herself with no assistance from a helper. 5-Set-up or Clean-up Assistance-helper sets up or cleans up; patient completes activity. [place] assists only prior to or following the activity. 4-Supervision or Touching Assistance-helper provides verbal cues and/or touching/steadying and/or contact guard assistance as patient completes activity. Assistance may be provided throughout the activity or intermittently. 3-Partial/Moderate Assistance-helper does LESS THAN HALF the effort. [place] lifts, holds or supports trunk or limbs, but provides less than half the effort. 2-Substantial/Maximal Assistance-helper does MORE THAN HALF the effort. [place] lifts or holds trunk or limbs and provides more than half the effort. 3-Kppnkfrbd-awkpxv does ALL the effort. Patient does none of the effort to complete the activity. Or, the assistance of 2 or more helpers is required for the patient to complete the activity. If activity was not attempted, code reason: 7-Patient Refused. 9-Not Applicable-not attempted and the patient did not perform the activity before the current illness, exacerbation or injury. 10-Not Attempted due to Environmental Limitations-(lack of equipment, weather restraints, etc.). 88-Not Attempted due to Medical Conditions or Safety Concerns. Oral Hygiene (QC): 6 Shower/Bathe Self (QC): 5 Upper Body Dressing (QC): 5 Lower Body Dressing (QC): 5 On/Off Footwear: 3 (Pt able to doff/don socks, but requires assist with PAULY hose.) Toileting Hygiene (QC): 5 Toilet Transfer (QC): 5 OT Application Development Project Manager Goals Prison Goals Time Frame: Dec 28, 2019 Eating (QC): 6 Oral Hygiene (QC): 6 Toileting Hygiene (QC): 6 Shower/Bathe Self (QC): 6 Upper Body Dressing (QC): 6 Lower Body Dressing (QC): 6 On/Off Footwear (QC): 6 Additional Goals: 1-Demonstrate ADL Tasks, 2-Verbalize Understanding, 3- ImproveStrength/Radha 1=Demonstrate adherence to instructed precautions during ADL tasks. 2=Patient will verbalize/demonstrate understanding of assistive devices/modifications for ADL. 3=Patient will improve strength/tolerance for activity to enable patient to perform ADL's. OT Education/Plan Discharge Recommendations Plan/Recommendations: Continue POC Treatment Plan/Plan of Care Patient would benefit from OT for education, treatment and training to promote independence in ADL's, mobility, safety and/or upper extremity function for ADL's. Plan of Care: ADL Retraining, Functional Mobility, Group Exercise/Act as Ind, UE Funct Exercise/Act Treatment Duration: Dec 28, 2019 Frequency: At least 5 of 7 days/Wk (IRF) Estimated Hrs Per Day: 1.5 hours per day Rehab Potential: Fair Time/GCodes Start Time: 10:00 Stop Time: 11:00 Total Time Billed (hr/min): 60 Billed Treatment Time 1 visit, ADLx4(60minutes) ISIAH MOODY OT Dec 15, 2019 11:30
[2019-12-15] MEDS: FERROUS SULF 325 MG (IRON) TAB PO SCH (12:10)
[2019-12-15] MEDS: CALCIUM CARB + VIT D 600 MG (CALCARB + D) TAB PO SCH (12:10)
--- NOTE | 2019-12-15 14:18 | NUR ---
provided prayer, Communion. Recently anointed.
--- NOTE | 2019-12-15 14:43 | Therapy Group Daily Note ---
Therapy Daily Group Note Patient Education Topic Exercises, Other List Below (Hand washing, ARU expectations) Exercises LE Seated Exercise, UE Exercise Session Ratio (pt:therapist): 4:1 Goal of Session: Education on ARU Expectations, UE/LE Strengthing Goal Met for this Session: Yes Pt Benefit of Group: Contributions to Others, Increased Functional Strength, Socialization Other/Notes Pt ambulated to [facility] area with FWW for OT/PT group. Pt introduced self to group for socialization and actively participated in group discussion. Education was provided regarding benefits of exercise, ARU expectations, and importance of handwashing. Pt engaged during education. Pt able to lead group in one exercise and participated in seated UE/LE exercises lead by other patients. Pt had good participation in exercises and group discussion. Pt returned to room with needs met after session. Start Time: 13:00 Stop Time: 14:00 Total Billed Treatment Time: 60 Total Billed Treatment 1 visit, GRP(60minutes) ISIAH MOODY OT Dec 15, 2019 14:43
[2019-12-15] MEDS ORDERED: NAPR220T66 PO (15:10)
[2019-12-15] MEDS ORDERED: GABA-486 PO (15:10)
[2019-12-15 16:00] VITALS: BP 115/57
[2019-12-15] MEDS: GABAPENTIN 100 MG (NEURONTIN) CAP PO SCH (20:13)
[2019-12-15] MEDS: CYCLOBENZAPRINE 10 MG (FLEXERIL) TAB PO PRN (21:20)
[2019-12-16 06:00] VITALS: BP 148/75
[2019-12-16] MEDS: ACETAMINOPHEN 500 MG TAB (TYLENOL) PO SCH ×3 (06:35→21:45)
[2019-12-16] MEDS: APIXABAN 2.5 MG (ELIQUIS) TABLET PO SCH ×2 (08:15→21:13)
[2019-12-16] MEDS: polyethylene glycoL POWDER 17 GM (MIRALAX) PACK PO SCH ×2 (09:00→19:34)
[2019-12-16] MEDS: SENNA W/DOCUSATE (SENOKOT S) TABLET PO SCH ×2 (09:00→19:34)
--- NOTE | 2019-12-16 09:03 | PM&R Progress Note ---
Subjective HPI/CC On Admission Date Seen by Provider: Dec 16, 2019 Time Seen by Provider: 09:00 Subjective/Events-last exam No significant changes Flexeril at night really helped her Polar Ice new machine really helps Incision looks good Conferred with RN Reviewed therapy notes Checked meds and labs Review of Systems General: Fatigue Cardiovascular: Edema Musculoskeletal: leg pain Objective Exam Vital Signs Vital Signs Date Time Temp Pulse Resp B/P (MAP) Pulse Ox O2 Delivery O2 Flow Rate FiO2 12/17/19 09:00 Room Air 12/17/19 06:18 37.4 100 20 110/47 (68) 92 Capillary Refill : Less Than 3 SecondsLess Than 3 Seconds General Appearance: No Apparent Distress, WD/WN HEENT: PERRL/EOMI, Normal ENT Inspection, Pharynx Normal Neck: Full Range of Motion, Normal Inspection, Non Tender, Supple, Carotid Bruit Respiratory: Chest Non Tender, Lungs Clear, Normal Breath Sounds, No Accessory Muscle Use, No Respiratory Distress Cardiovascular: Regular Rate, Rhythm, No Edema, No Gallop, No JVD, No Murmur, Normal Peripheral Pulses Gastrointestinal: Normal Bowel Sounds, No Organomegaly, No Pulsatile Mass, Non Tender, Soft Back: Normal Inspection, No CVA Tenderness, No Vertebral Tenderness Extremity: Normal Capillary Refill, Normal Inspection, Normal Range of Motion (except right leg post op), Non Tender, No Calf Tenderness, No Pedal Edema Neurologic/Psychiatric: Alert, Oriented x3, No Motor/Sensory Deficits, Normal Mood/Affect Skin: Normal Color, Warm/Dry Lymphatic: No Adenopathy Results/Procedures Lab Patient resulted labs reviewed. FIM Transfers Therapy Code Descriptions/Definitions Functional [place] Measure: 0=Not Assessed/NA 4=Minimal Assistance 1=Total Assistance 5=Supervision or Setup 2=Maximal Assistance 6=Modified [place] 3=Moderate Assistance 7=Complete IndependenceSCALE: Activities may be completed with or without assistive devices. 4-Fyaanqlvvn-axhmovd completes the activity by him/herself with no assistance from a helper. 5-Set-up or Clean-up Assistance-helper sets up or cleans up; patient completes activity. [place] assists only prior to or following the activity. 4-Supervision or Touching Assistance-helper provides verbal cues and/or touching/steadying and/or contact guard assistance as patient completes activity. Assistance may be provided throughout the activity or intermittently. 3-Partial/Moderate Assistance-helper does LESS THAN HALF the effort. [place] lifts, holds or supports trunk or limbs, but provides less than half the effort. 2-Substantial/Maximal Assistance-helper does MORE THAN HALF the effort. [place] lifts or holds trunk or limbs and provides more than half the effort. 8-Vrmkvrsmy-nxgpug does ALL the effort. Patient does none of the effort to complete the activity. Or, the assistance of 2 or more helpers is required for the patient to complete the activity. If activity was not attempted, code reason: 7-Patient Refused. 9-Not Applicable-not attempted and the patient did not perform the activity before the current illness, exacerbation or injury. 10-Not Attempted due to Environmental Limitations-(lack of equipment, weather restraints, etc.). 88-Not Attempted due to Medical Conditions or Safety Concerns. Roll Left to Right (QC): 6 Sit to Lying (QC): 6 Sit to Stand (QC): 6 Chair/Wpx-lw-Dtzxz Xfer(QC): 6 Car Transfer (QC): 3 Gait Training Does the Patient Walk?: Yes Distance: 150'x2 Walk 10 feet (QC): 5 Walk 50 ft with 2 Turns(QC): 5 Walk 150 ft (QC): 5 Walking 10ft/uneven surface-QC: 4 Gait Persons Needed: 1 Gait Assistive Device: FWW Wheelchair Training Does the Pt Use a Wheelchair?: No Stair Training Stair Training: Handrails/: 2 handrails #of Steps: 4 1 Step (curb) (QC): 4 4 Steps (QC): 4 12 Steps (QC): 88 Stairs: Pattern: Step to Balance Picking up an Object (QC): 88 ADL-Treatment Eating (QC): 6 (Pt reports feeding self and managing all containers without assist) Oral Hygiene (QC): 6 Shower/Bathe Self (QC): 5 Upper Body Dressing (QC): 5 Lower Body Dressing (QC): 5 On/Off Footwear (QC): 3 (Pt able to doff/don socks, but requires assist with PAULY hose.) Toileting Hygiene (QC): 5 Toilet Transfer (QC): 5 Assessment/Plan Assessment and Plan Assess & Plan/Chief Complaint Assessment: (1) Status post right knee replacement ICD Codes: Z96.651 - Presence of right artificial knee joint (2) History of DVT of lower extremity ICD Codes: Z86.718 - Personal history of other venous thrombosis and embolism (3) Anticoagulant prescribed (4) Arthritis ICD Codes: M19.90 - Unspecified osteoarthritis, unspecified site (5) Advanced age ICD Codes: R54 - Age-related physical debility (6) Atrial fib/flutter, transient (7) Breast cancer, right ICD Codes: C50.911 - Malignant neoplasm of unspecified site of right female breast Plan: IRF protocol Monitor hgb and add iron QOD Eliquis Pain control (1) Status post right knee replacement (2) History of DVT of lower extremity (3) Anticoagulant prescribed (4) Arthritis (5) Advanced age (6) Atrial fib/flutter, transient (7) Breast cancer, right TONG GENTILE DO Dec 16, 2019 09:03
--- NOTE | 2019-12-16 10:19 | Physical Therapy Daily Note ---
PT Daily Note-Current Subjective Pt agreeable to PT. Reports her right knee is "stiff". Reports she does feel she is making progress. Mental Status Patient Orientation: Person, Place, Time, Situation Transfers SCALE: Activities may be completed with or without assistive devices. 0-Npppisbaji-poyvrct completes the activity by him/herself with no assistance from a helper. 5-Set-up or Clean-up Assistance-helper sets up or cleans up; patient completes activity. [place] assists only prior to or following the activity. 4-Supervision or Touching Assistance-helper provides verbal cues and/or touching/steadying and/or contact guard assistance as patient completes activity. Assistance may be provided throughout the activity or intermittently. 3-Partial/Moderate Assistance-helper does LESS THAN HALF the effort. [place] lifts, holds or supports trunk or limbs, but provides less than half the effort. 2-Substantial/Maximal Assistance-helper does MORE THAN HALF the effort. [place] lifts or holds trunk or limbs and provides more than half the effort. 4-Gnvpzjvlu-svslib does ALL the effort. Patient does none of the effort to complete the activity. Or, the assistance of 2 or more helpers is required for the patient to complete the activity. If activity was not attempted, code reason: 7-Patient Refused. 9-Not Applicable-not attempted and the patient did not perform the activity before the current illness, exacerbation or injury. 10-Not Attempted due to Environmental Limitations-(lack of equipment, weather restraints, etc.). 88-Not Attempted due to Medical Conditions or Safety Concerns. Sit to Stand (QC): 4 (SBA with skilled cues for sequencing and safety. ) Chair/Jww-jg-Jwrgn Xfer(QC): 4 Worked on functional transfers from varied surfaces: bed, chair, toilet and recliner. Weight Bearing Right Lower Extremity: Right Weight Bearing/Tolerated Gait Training Does the Patient Walk?: Yes Distance: 200 ft x 3 Walk 150 ft (QC): 4 (SBA for safety.) Gait Assistive Device: FWW Functional gait training with focus on step through with heel strike/toe off. Stair Training Stair Training: Handrails/: 2 handrails 4 Steps (QC): 4 (SBA; heavy reliance on B handrails; step to gait pattern) Exercises Supine Ex: Ankle pumps, Quad Set, Glut sets, Heel Slides, Short Arc Quads, Straight leg raise, Hip abd/add Supine Reps: 12 (TKR knee exercises for ROM and strength) Seated Therapy Exercises: Sit to stand (2 x 5), Long arc quads, Hip flexion, Hip abd/add Seated Reps: 12 Treatments Functional transfers, gait, strength and mobiltiy to return to PLOF AROM right knee 0-95 degrees. Assessment Current Status: Good Progress PT Short Term Goals Short Term Goals Time Frame: Dec 21, 2019 Roll Left & Right: 6 Sit to lyin Lying to sitting on side of be: 4 Sit to stand: 4 (met) Chair/ldt-cl-rxdrq transfer: 4 (met) Walk 10 feet: 4 (met) Walk 50 feet with two turns: 4 (met) Walk 150 feet: 4 PT Montessori Paraprofessional Goals Custodial Goals PT Custodial Goals Time Frame: Jan 04, 2020 Roll Left & Right (QC): 6 Sit to Lying (QC): 6 Lying-Sitting on Side/Bed(QC): 6 Sit to Stand (QC): 6 Chair/Wfd-ir-Rxswi Xfer(QC): 6 Toilet Transfer (QC): 6 Car Transfer (QC): 6 Walk 10 feet (QC): 6 Walk 50ft with 2 Turns (QC): 6 Walk 150 ft (QC): 6 Walking 10ft on Uneven Surface: 6 PT Plan Problem List Problem List: Activity Tolerance, Functional Strength, Safety, Balance, Gait, Transfer, Bed Mobility, ROM Treatment/Plan Treatment Plan: Continue Plan of Care Treatment Plan: Bed Mobility, Education, Functional Activity Radha, Functional Strength, Group Therapy, Gait, Safety, Therapeutic Exercise, Transfers Treatment Duration: Jan 04, 2020 Frequency: At least 5 of 7 days/Wk (IRF) Estimated Hrs Per Day: 1.5 hours per day Patient and/or Family Agrees t: Yes Safety Risks/Education Patient Education: Transfer Techniques, Steps Teaching Recipient: Patient Teaching Methods: Demonstration, Discussion Response to Teaching: Reinforcement Needed Discharge Recommendations Therapy Discharge Recommendati: Post Acute PT Time/GCodes Time In: 805 Time Out: 905 Total Billed Treatment Time: 60 Total Billed Treatment visit GT 15 FA 15 EX 30 KEVIN HEDRICK PT Dec 16, 2019 10:19
--- NOTE | 2019-12-16 11:33 | Occupational Ther Daily Note ---
OT Current Status-Daily Note Subjective Pt sitting upright in recliner at start of session, agreeable to OT tx with focus on ADLs. She did not verbalize any pain rating during tx. Mental Status/Objective Patient Orientation: Normal For Age ADL-Treatment Therapy Code Descriptions/Definitions Functional [place] Measure: 0=Not Assessed/NA 4=Minimal Assistance 1=Total Assistance 5=Supervision or Setup 2=Maximal Assistance 6=Modified [place] 3=Moderate Assistance 7=Complete IndependenceSCALE: Activities may be completed with or without assistive devices. 5-Ylklkmrnxu-wbebzry completes the activity by him/herself with no assistance from a helper. 5-Set-up or Clean-up Assistance-helper sets up or cleans up; patient completes activity. [place] assists only prior to or following the activity. 4-Supervision or Touching Assistance-helper provides verbal cues and/or touching/steadying and/or contact guard assistance as patient completes activity. Assistance may be provided throughout the activity or intermittently. 3-Partial/Moderate Assistance-helper does LESS THAN HALF the effort. [place] lifts, holds or supports trunk or limbs, but provides less than half the effort. 2-Substantial/Maximal Assistance-helper does MORE THAN HALF the effort. [place] lifts or holds trunk or limbs and provides more than half the effort. 3-Titqymxuo-retlgk does ALL the effort. Patient does none of the effort to complete the activity. Or, the assistance of 2 or more helpers is required for the patient to complete the activity. If activity was not attempted, code reason: 7-Patient Refused. 9-Not Applicable-not attempted and the patient did not perform the activity before the current illness, exacerbation or injury. 10-Not Attempted due to Environmental Limitations-(lack of equipment, weather restraints, etc.). 88-Not Attempted due to Medical Conditions or Safety Concerns. Oral Hygiene (QC): 4 (SBA standing at sink) Shower/Bathe Self (QC): 4 (SBA during stand at GBs for washing periarea and buttocks. ) Upper Body Dressing (QC): 3 (Pt doffed bra and shirt. She required min A with bra, OT assisted pt with clasps, then pt able to don pull socket assembler shirt without assistance. ) Lower Body Dressing (QC): 4 (SBA, pt able to don/doff briefs and pants) On/Off Footwear: 3 (Pt able to don/doff socks. Required assistance threading legs into TEDhose, pt then able to pull them up the rest of the way.) Toileting Hygiene (QC): 4 (SBA ) Toilet Transfer (QC): 4 (SBA) Other Treatment Pt seated in recliner, OT gathered and set up supplies for ADLs. Pt then ambulated to the bathroom with FWW, to complete toileting. Pt then went to the shower where she doffed clothes and completed her shower. After shower, pt transferred to chair to complete dressing, stood at the sink for oral hygiene, and then sat in chair as she finished grooming tasks. Pt returned to the recliner and completed x15 reps BUE exercises in order to increase functional endurance and strengthening. Pt performed wrist flexion/extension, elbow flexion/extension, and shoulder flexion. Post OT session, pt seated in recliner, call light in reach and all needs met. Education OT Patient Education: Correct positioning, Energy conservation, Exercise program, Modified ADL techniques, Progress toward Goal/Update tx plan, Purpose of tx/functional activities, Transfer techniques Teaching Recipient: Patient Teaching Methods: Discussion Response to Teaching: Verbalize Understanding OT Mcfp Goals Mill Tender Washing Goals Time Frame: Dec 28, 2019 Eating (QC): 6 Oral Hygiene (QC): 6 Toileting Hygiene (QC): 6 Shower/Bathe Self (QC): 6 Upper Body Dressing (QC): 6 Lower Body Dressing (QC): 6 On/Off Footwear (QC): 6 Additional Goals: 1-Demonstrate ADL Tasks, 2-Verbalize Understanding, 3- ImproveStrength/Radha 1=Demonstrate adherence to instructed precautions during ADL tasks. 2=Patient will verbalize/demonstrate understanding of assistive devices/modifications for ADL. 3=Patient will improve strength/tolerance for activity to enable patient to perform ADL's. OT Education/Plan Problem List/Assessment Assessment: Decreased Activ Tolerance, Decreased UE Strength, Impaired I ADL's, Impaired Self-Care Skills Discharge Recommendations Plan/Recommendations: Continue POC Treatment Plan/Plan of Care Patient would benefit from OT for education, treatment and training to promote independence in ADL's, mobility, safety and/or upper extremity function for ADL's. Plan of Care: ADL Retraining, Functional Mobility, Group Exercise/Act as Ind, UE Funct Exercise/Act Treatment Duration: Dec 28, 2019 Frequency: At least 5 of 7 days/Wk (IRF) Estimated Hrs Per Day: 1.5 hours per day Rehab Potential: Fair Time/GCodes Start Time: 10:00 Stop Time: 11:30 Total Time Billed (hr/min): 90 Billed Treatment Time 1, ADL 5 (75'), EX (15') PATRICIA FLORES OT Dec 16, 2019 11:33
[2019-12-16] MEDS: CALCIUM CARB + VIT D 600 MG (CALCARB + D) TAB PO SCH (12:58)
--- NOTE | 2019-12-16 15:34 | Physical Therapy Daily Note ---
PT Daily Note-Current Subjective Pt agreeable to PT session. Pain Numeric Pain Scale: 0-No Pain Comment: just aching R knee, sitting at rest Appearance Pt sitting up in recliner upon arrival, requesting and assisted to restroom. At end of session, pt sitting up in recliner with call light, phone and bedside table within reach, polar pack placed on R knee. Mental Status Patient Orientation: Person, Place, Time, Eyes Open, Situation Transfers SCALE: Activities may be completed with or without assistive devices. 8-Hyxzudzwlq-xajhejp completes the activity by him/herself with no assistance from a helper. 5-Set-up or Clean-up Assistance-helper sets up or cleans up; patient completes activity. [place] assists only prior to or following the activity. 4-Supervision or Touching Assistance-helper provides verbal cues and/or touching/steadying and/or contact guard assistance as patient completes activity. Assistance may be provided throughout the activity or intermittently. 3-Partial/Moderate Assistance-helper does LESS THAN HALF the effort. [place] lifts, holds or supports trunk or limbs, but provides less than half the effort. 2-Substantial/Maximal Assistance-helper does MORE THAN HALF the effort. [place] lifts or holds trunk or limbs and provides more than half the effort. 7-Yqwjkeyqm-hvujwh does ALL the effort. Patient does none of the effort to complete the activity. Or, the assistance of 2 or more helpers is required for the patient to complete the activity. If activity was not attempted, code reason: 7-Patient Refused. 9-Not Applicable-not attempted and the patient did not perform the activity before the current illness, exacerbation or injury. 10-Not Attempted due to Environmental Limitations-(lack of equipment, weather restraints, etc.). 88-Not Attempted due to Medical Conditions or Safety Concerns. Sit to Stand (QC): 4 min skilled verb inst for hand placement and technique, pt able to stand with several attempts, CGA Weight Bearing Right Lower Extremity: Right Weight Bearing/Tolerated Gait Training Does the Patient Walk?: Yes Distance: 157 x2 Walk 10 feet (QC): 4 Walk 50 ft with 2 Turns(QC): 4 Walk 150 ft (QC): 4 Gait Persons Needed: 1 Gait Assistive Device: FWW slow antalgic gait, occasional step to pattern but improved greatly with increasing distance and inst Exercises NuStep Minutes: 10 NuStep Workload: 4 (seat 8, arms 9) Treatments education, safety, toileting, transfers, gait, activity tolerance, functional mobility, strength, balance Assessment Current Status: Good Progress PT Short Term Goals Short Term Goals Time Frame: Dec 21, 2019 Roll Left & Right: 6 Sit to lyin Lying to sitting on side of be: 4 Sit to stand: 4 (met) Chair/pam-px-rqnev transfer: 4 (met) Walk 10 feet: 4 (met) Walk 50 feet with two turns: 4 (met) Walk 150 feet: 4 PT Detention Goals Detention Goals PT Detention Goals Time Frame: Jan 04, 2020 Roll Left & Right (QC): 6 Sit to Lying (QC): 6 Lying-Sitting on Side/Bed(QC): 6 Sit to Stand (QC): 6 Chair/Fxs-es-Uqgbt Xfer(QC): 6 Toilet Transfer (QC): 6 Car Transfer (QC): 6 Walk 10 feet (QC): 6 Walk 50ft with 2 Turns (QC): 6 Walk 150 ft (QC): 6 Walking 10ft on Uneven Surface: 6 PT Plan Treatment/Plan Treatment Plan: Continue Plan of Care Treatment Plan: Bed Mobility, Education, Functional Activity Radha, Functional Strength, Group Therapy, Gait, Safety, Therapeutic Exercise, Transfers Treatment Duration: Jan 04, 2020 Frequency: At least 5 of 7 days/Wk (IRF) Estimated Hrs Per Day: 1.5 hours per day Patient and/or Family Agrees t: Yes Safety Risks/Education Patient Education: Gait Training, Transfer Techniques, Safety Issues Teaching Recipient: Patient Teaching Methods: Demonstration, Discussion Response to Teaching: Verbalize Understanding, Return Demonstration Time/GCodes Time In: 1300 Time Out: 1330 Total Billed Treatment Time: 30 Total Billed Treatment 1 visit, GT x20, EX x10 FER LOZA STAFF MECHANICAL ENGINEER Dec 16, 2019 15:34
[2019-12-16 18:00] VITALS: BP 129/60
[2019-12-16] MEDS: CYCLOBENZAPRINE 10 MG (FLEXERIL) TAB PO PRN (21:13)
[2019-12-16] MEDS: GABAPENTIN 100 MG (NEURONTIN) CAP PO SCH (21:13)
[2019-12-17] MEDS: ACETAMINOPHEN 500 MG TAB (TYLENOL) PO SCH ×3 (06:05→22:17)
[2019-12-17 06:18] VITALS: BP 110/47
[2019-12-17] MEDS: APIXABAN 2.5 MG (ELIQUIS) TABLET PO SCH ×2 (08:14→20:52)
[2019-12-17] MEDS: polyethylene glycoL POWDER 17 GM (MIRALAX) PACK PO SCH ×2 (09:00→21:30)
[2019-12-17] MEDS: SENNA W/DOCUSATE (SENOKOT S) TABLET PO SCH ×2 (09:00→21:30)
--- NOTE | 2019-12-17 09:11 | Physical Therapy Daily Note ---
PT Daily Note-Current Subjective Pt agreeable to both PT sessions. Pt states she had a bad night last night, couldn't sleep and was up at least 4 times through the night to the bathroom. States her knee is not painful, but feeling very tight. States L leg hurts in her groin and not sure why, L knee is very arthritic and painful at times. At end of 2nd session, pt states she would like to start working on getting in and out of bed on L side as she would do at home. Pain Numeric Pain Scale: 2 Location: Right Location Body Site: Knee Comment: up walking and transferring, 0/10 at rest Appearance Upon arrival, pt sitting up in recliner awake and alert. Pt requested and was assisted to bathroom, SBA for transfers and edy care. At end of session, pt sitting up in recliner with LE's elevated, polar pack on R knee, call light, phone and bedside table within reach Mental Status Patient Orientation: Person, Place, Time, Eyes Open, Situation Transfers SCALE: Activities may be completed with or without assistive devices. 0-Ghmyxlpuog-aulqbjw completes the activity by him/herself with no assistance from a helper. 5-Set-up or Clean-up Assistance-helper sets up or cleans up; patient completes activity. [place] assists only prior to or following the activity. 4-Supervision or Touching Assistance-helper provides verbal cues and/or touching/steadying and/or contact guard assistance as patient completes activ ity. Assistance may be provided throughout the activity or intermittently. 3-Partial/Moderate Assistance-helper does LESS THAN HALF the effort. [place] lifts, holds or supports trunk or limbs, but provides less than half the effort. 2-Substantial/Maximal Assistance-helper does MORE THAN HALF the effort. [place] lifts or holds trunk or limbs and provides more than half the effort. 5-Lntdydpxk-ildfle does ALL the effort. Patient does none of the effort to complete the activity. Or, the assistance of 2 or more helpers is required for the patient to complete the activity. If activity was not attempted, code reason: 7-Patient Refused. 9-Not Applicable-not attempted and the patient did not perform the activity before the current illness, exacerbation or injury. 10-Not Attempted due to Environmental Limitations-(lack of equipment, weather restraints, etc.). 88-Not Attempted due to Medical Conditions or Safety Concerns. Roll Left & Right (QC): 4 (bedrail, inst) Sit to Lying (QC): 4 (bedrail, instruction) Lying to Sitting/Side of Bed(Q: 4 (bedrail, instr) Sit to Stand (QC): 4 Chair/Pwh-st-Gkeot Xfer(QC): 4 Toilet Transfer (QC): 4 SBA, effort to stand, slight uncontrolled descent, min skilled verb inst for technique Weight Bearing Right Lower Extremity: Right Weight Bearing/Tolerated Gait Training Does the Patient Walk?: Yes Distance: 200, 150, 200, 150 Walk 10 feet (QC): 4 Walk 50 ft with 2 Turns(QC): 4 Walk 150 ft (QC): 4 Gait Persons Needed: 1 Gait Assistive Device: FWW SBA, able to follow skilled instruction to correct posture, decrease use of UE's on walker and increase step height, knee flex and ext Wheelchair Training Does the Pt Use a Wheelchair?: No Exercises Supine Ex: Ankle pumps (50), Quad Set (2 x20), Heel Slides (2 x10), Straight l eg raise Seated Therapy Exercises: Ankle pumps Standing Reps: 10 (each LE, fwd lunges, lateral lunges) NuStep Minutes: 4 NuStep Workload: 4 (seat and arms 9, requiring x2 stopping rest breaks) Treatments education, safety, transfers, toileting, gait, strength, balance, ROM, activity tolerance, functional mobility, bed mobility Assessment Current Status: Good Progress PT Short Term Goals Short Term Goals Time Frame: Dec 21, 2019 Roll Left & Right: 6 Sit to lyin Lying to sitting on side of be: 4 Sit to stand: 4 (met) Chair/aex-mk-iqoxy transfer: 4 (met) Walk 10 feet: 4 (met) Walk 50 feet with two turns: 4 (met) Walk 150 feet: 4 PT Commercial Account Officer Goals Snf Goals PT Snf Goals Time Frame: Jan 04, 2020 Roll Left & Right (QC): 6 Sit to Lying (QC): 6 Lying-Sitting on Side/Bed(QC): 6 Sit to Stand (QC): 6 Chair/Vdy-ab-Ehbgu Xfer(QC): 6 Toilet Transfer (QC): 6 Car Transfer (QC): 6 Walk 10 feet (QC): 6 Walk 50ft with 2 Turns (QC): 6 Walk 150 ft (QC): 6 Walking 10ft on Uneven Surface: 6 PT Plan Treatment/Plan Treatment Plan: Continue Plan of Care Treatment Plan: Bed Mobility, Education, Functional Activity Radha, Functional Strength, Group Therapy, Gait, Safety, Therapeutic Exercise, Transfers Treatment Duration: Jan 04, 2020 Frequency: At least 5 of 7 days/Wk (IRF) Estimated Hrs Per Day: 1.5 hours per day Patient and/or Family Agrees t: Yes Safety Risks/Education Patient Education: Gait Training, Transfer Techniques, Safety Issues Teaching Recipient: Patient Teaching Methods: Demonstration, Discussion Response to Teaching: Verbalize Understanding, Return Demonstration Time/GCodes Time In: 900 (2nd session: 1300) Time Out: 1000 (2nd session: 1330) Total Billed Treatment Time: 60 (2nd session: 30) Total Billed Treatment 1 visit, EX x25 min, FA x15 min, GT x20 min. 2nd session: 1 visit, EX x20 min, GT x10 min FER LOZA PTA Dec 17, 2019 09:11
--- NOTE | 2019-12-17 09:52 | PM&R Progress Note ---
Subjective HPI/CC On Admission Date Seen by Provider: Dec 17, 2019 Time Seen by Provider: 10:00 Subjective/Events-last exam Patient doing well but right leg more edematous and sore Not unusual to have fluid collection in the tissue after surgery Eliquis maintained BID Pain is controlled on APAP Using polar ice apparatus Conferred with RN Reviewed therapy notes Checked meds and labs Review of Systems General: Fatigue Cardiovascular: Edema Musculoskeletal: leg pain Objective Exam Vital Signs Vital Signs Date Time Temp Pulse Resp B/P (MAP) Pulse Ox O2 Delivery O2 Flow Rate FiO2 12/17/19 09:00 Room Air 12/17/19 06:18 37.4 100 20 110/47 (68) 92 Capillary Refill : Less Than 3 SecondsLess Than 3 Seconds General Appearance: No Apparent Distress, WD/WN HEENT: PERRL/EOMI, Normal ENT Inspection, Pharynx Normal Neck: Full Range of Motion, Normal Inspection, Non Tender, Supple, Carotid Bruit Respiratory: Chest Non Tender, Lungs Clear, Normal Breath Sounds, No Accessory Muscle Use, No Respiratory Distress Cardiovascular: Regular Rate, Rhythm, No Gallop, No JVD, No Murmur, Normal Peripheral Pulses Gastrointestinal: Normal Bowel Sounds, No Organomegaly, No Pulsatile Mass, Non Tender, Soft Back: Normal Inspection, No CVA Tenderness, No Vertebral Tenderness Extremity: Normal Capillary Refill, Normal Inspection, Normal Range of Motion (except right leg post op), Non Tender, No Calf Tenderness, Pedal Edema (right leg 1+) Neurologic/Psychiatric: Alert, Oriented x3, No Motor/Sensory Deficits, Normal Mood/Affect Skin: Normal Color, Warm/Dry Lymphatic: No Adenopathy Results/Procedures Lab Patient resulted labs reviewed. FIM Transfers Therapy Code Descriptions/Definitions Functional [place] Measure: 0=Not Assessed/NA 4=Minimal Assistance 1=Total Assistance 5=Supervision or Setup 2=Maximal Assistance 6=Modified [place] 3=Moderate Assistance 7=Complete IndependenceSCALE: Activities may be completed with or without assistive devices. 0-Yeumvjqolo-mmyomma completes the activity by him/herself with no assistance from a helper. 5-Set-up or Clean-up Assistance-helper sets up or cleans up; patient completes activity. [place] assists only prior to or following the activity. 4-Supervision or Touching Assistance-helper provides verbal cues and/or touching/steadying and/or contact guard assistance as patient completes activity. Assistance may be provided throughout the activity or intermittently. 3-Partial/Moderate Assistance-helper does LESS THAN HALF the effort. [place] lifts, holds or supports trunk or limbs, but provides less than half the effort. 2-Substantial/Maximal Assistance-helper does MORE THAN HALF the effort. [place] lifts or holds trunk or limbs and provides more than half the effort. 6-Mefcessaw-givrcc does ALL the effort. Patient does none of the effort to complete the activity. Or, the assistance of 2 or more helpers is required for the patient to complete the activity. If activity was not attempted, code reason: 7-Patient Refused. 9-Not Applicable-not attempted and the patient did not perform the activity be fore the current illness, exacerbation or injury. 10-Not Attempted due to Environmental Limitations-(lack of equipment, weather restraints, etc.). 88-Not Attempted due to Medical Conditions or Safety Concerns. Roll Left to Right (QC): 6 Sit to Lying (QC): 6 Sit to Stand (QC): 4 Chair/Eet-kp-Afula Xfer(QC): 4 Car Transfer (QC): 3 Gait Training Does the Patient Walk?: Yes Distance: 157 x2 Walk 10 feet (QC): 4 Walk 50 ft with 2 Turns(QC): 4 Walk 150 ft (QC): 4 Walking 10ft/uneven surface-QC: 4 Gait Persons Needed: 1 Gait Assistive Device: FWW Wheelchair Training Does the Pt Use a Wheelchair?: No Stair Training Stair Training: Handrails/: 2 handrails #of Steps: 4 1 Step (curb) (QC): 4 4 Steps (QC): 4 (SBA; heavy reliance on B handrails; step to gait pattern) 12 Steps (QC): 88 Stairs: Pattern: Step to Balance Picking up an Object (QC): 88 ADL-Treatment Eating (QC): 6 (Pt reports feeding self and managing all containers without assist) Oral Hygiene (QC): 4 (SBA standing at sink) Shower/Bathe Self (QC): 4 (SBA during stand at GBs for washing periarea and buttocks. ) Upper Body Dressing (QC): 3 (Pt doffed bra and shirt. She required min A with bra, OT assisted pt with clasps, then pt able to don pulley worker shirt without assistance. ) Lower Body Dressing (QC): 4 (SBA, pt able to don/doff briefs and pants) On/Off Footwear (QC): 3 (Pt able to don/doff socks. Required assistance thr eading legs into TEDhose, pt then able to pull them up the rest of the way.) Toileting Hygiene (QC): 4 (SBA ) Toilet Transfer (QC): 4 (SBA) Assessment/Plan Assessment and Plan Assess & Plan/Chief Complaint Assessment: (1) Status post right knee replacement ICD Codes: Z96.651 - Presence of right artificial knee joint (2) History of DVT of lower extremity ICD Codes: Z86.718 - Personal history of other venous thrombosis and embolism (3) Anticoagulant prescribed (4) Arthritis ICD Codes: M19.90 - Unspecified osteoarthritis, unspecified site (5) Advanced age ICD Codes: R54 - Age-related physical debility (6) Atrial fib/flutter, transient (7) Breast cancer, right ICD Codes: C50.911 - Malignant neoplasm of unspecified site of right female breast Right leg edema Plan: IRF protocol Monitor hgb and add iron QOD Eliquis Pain control Elevated right leg (1) Status post right knee replacement (2) History of DVT of lower extremity (3) Anticoagulant prescribed (4) Arthritis (5) Advanced age (6) Atrial fib/flutter, transient (7) Breast cancer, right TONG GENTILE DO Dec 17, 2019 09:52
[2019-12-17] MEDS: FERROUS SULF 325 MG (IRON) TAB PO SCH (11:58)
[2019-12-17] MEDS: CALCIUM CARB + VIT D 600 MG (CALCARB + D) TAB PO SCH (11:58)
--- NOTE | 2019-12-17 12:55 | Occupational Ther Daily Note ---
OT Current Status-Daily Note Subjective Pt sitting in chair, agrees to therapy. Pt reports 2/10 pain in right knee. ADL-Treatment Pt declined shower, but would like a sponge bath. Sit to stand with supervision. Gait to restroom with FWW. Sponge bath completed seated at sink. Pt able to wash/dry all areas after set up. Don pullover shirt with set up. Pt donned Depends with set up. Stood with good balance during pant hike. Pt able to don PAULY hose with set up and increased time. Donned pants with set up. Pt donned socks with set up. Toilet transfer completed using grab bars for safety. Pt able to complete toileting hygiene and clothing management. Stood at sink to wash hands and brush teeth with modified independence. Pt combed hair while seated secondary to decreased activity tolerance. Therapy Code Descriptions/Definitions Functional [place] Measure: 0=Not Assessed/NA 4=Minimal Assistance 1=Total Assistance 5=Supervision or Setup 2=Maximal Assistance 6=Modified [place] 3=Moderate Assistance 7=Complete IndependenceSCALE: Activities may be completed with or without assistive devices. 8-Mfevmqxmoa-ivdpveo completes the activity by him/herself with no assistance from a helper. 5-Set-up or Clean-up Assistance-helper sets up or cleans up; patient completes activity. [place] assists only prior to or following the activity. 4-Supervision or Touching Assistance-helper provides verbal cues and/or touching/steadying and/or contact guard assistance as patient completes activity. Assistance may be provided throughout the activity or intermittently. 3-Partial/Moderate Assistance-helper does LESS THAN HALF the effort. [place] lifts, holds or supports trunk or limbs, but provides less than half the effort. 2-Substantial/Maximal Assistance-helper does MORE THAN HALF the effort. [place] lifts or holds trunk or limbs and provides more than half the effort. 0-Ooquwjtyn-swhipe does ALL the effort. Patient does none of the effort to complete the activity. Or, the assistance of 2 or more helpers is required for the patient to complete the activity. If activity was not attempted, code reason: 7-Patient Refused. 9-Not Applicable-not attempted and the patient did not perform the activity before the current illness, exacerbation or injury. 10-Not Attempted due to Environmental Limitations-(lack of equipment, weather restraints, etc.). 88-Not Attempted due to Medical Conditions or Safety Concerns. Oral Hygiene (QC): 6 Shower/Bathe Self (QC): 5 Upper Body Dressing (QC): 5 Lower Body Dressing (QC): 5 On/Off Footwear: 5 Toileting Hygiene (QC): 5 Toilet Transfer (QC): 5 Other Treatment Gait to therapy gym with FWW. Pt completed arm bike x10 minutes to increase overall strength and activity tolerance needed for ADLs and transfers. Pt performed task with minimal resistance and slow pace. Occasional rest breaks taken during activity. Pt returned to room, resting in bed with needs met after session. OT Long-Term Goals Long-Term Goals Time Frame: Dec 28, 2019 Eating (QC): 6 Oral Hygiene (QC): 6 Toileting Hygiene (QC): 6 Shower/Bathe Self (QC): 6 Upper Body Dressing (QC): 6 Lower Body Dressing (QC): 6 On/Off Footwear (QC): 6 Additional Goals: 1-Demonstrate ADL Tasks, 2-Verbalize Understanding, 3- ImproveStrength/Radha 1=Demonstrate adherence to instructed precautions during ADL tasks. 2=Patient will verbalize/demonstrate understanding of assistive devices/modifications for ADL. 3=Patient will improve strength/tolerance for activity to enable patient to perform ADL's. OT Education/Plan Discharge Recommendations Plan/Recommendations: Continue POC Treatment Plan/Plan of Care Patient would benefit from OT for education, treatment and training to promote independence in ADL's, mobility, safety and/or upper extremity function for ADL's. Plan of Care: ADL Retraining, Functional Mobility, Group Exercise/Act as Ind, UE Funct Exercise/Act Treatment Duration: Dec 28, 2019 Frequency: At least 5 of 7 days/Wk (IRF) Estimated Hrs Per Day: 1.5 hours per day Rehab Potential: Fair Time/GCodes Start Time: 10:00 Stop Time: 11:30 Total Time Billed (hr/min): 90 Billed Treatment Time 1 visit, ADLx5(70minutes), EX(20minutes) ISIAH MOODY OT Dec 17, 2019 12:55
--- NOTE | 2019-12-17 15:27 | NUR ---
CM/SS WEEKLY REHAB TEAM CONFERENCE SUMMARY Reviewed Summary with patient and updated her about estimated discharge target 12/22/19. Patient is in agreement to a continued stay and participation until that time, she indicates this would work well for her family. Her daughter wanted to stay with her the first night home and she will return Friday from a 3 day work travel obligation. Patient will return to [facility], she has requested OP PT/therapy with [facility] services. Follow and assist with coordination of most appropriate resource.
[2019-12-17 17:15] VITALS: BP 136/71
[2019-12-17] MEDS: CYCLOBENZAPRINE 10 MG (FLEXERIL) TAB PO PRN (20:52)
[2019-12-17] MEDS: GABAPENTIN 100 MG (NEURONTIN) CAP PO SCH (20:53)
[2019-12-18 06:00] VITALS: BP 117/71
[2019-12-18] MEDS: ACETAMINOPHEN 500 MG TAB (TYLENOL) PO SCH ×3 (06:16→21:21)
--- NOTE | 2019-12-18 08:32 | Physical Therapy Daily Note ---
PT Daily Note-Current Subjective Patient is up in recliner completing breakfast and agrees to PT. Pain Numeric Pain Scale: 4 Location: Right Location Body Site: Knee Pain Description: Acute Mental Status Patient Orientation: Normal For Age Transfers SCALE: Activities may be completed with or without assistive devices. 4-Wmmaxrcnrz-vemsbta completes the activity by him/herself with no assistance from a helper. 5-Set-up or Clean-up Assistance-helper sets up or cleans up; patient completes activity. [place] assists only prior to or following the activity. 4-Supervision or Touching Assistance-helper provides verbal cues and/or touching/steadying and/or contact guard assistance as patient completes activity. Assistance may be provided throughout the activity or intermittently. 3-Partial/Moderate Assistance-helper does LESS THAN HALF the effort. [place] lifts, holds or supports trunk or limbs, but provides less than half the effort. 2-Substantial/Maximal Assistance-helper does MORE THAN HALF the effort. [place] lifts or holds trunk or limbs and provides more than half the effort. 2-Aaejharnu-ruazfg does ALL the effort. Patient does none of the effort to complete the activity. Or, the assistance of 2 or more helpers is required for the patient to complete the activity. If activity was not attempted, code reason: 7-Patient Refused. 9-Not Applicable-not attempted and the patient did not perform the activity be fore the current illness, exacerbation or injury. 10-Not Attempted due to Environmental Limitations-(lack of equipment, weather restraints, etc.). 88-Not Attempted due to Medical Conditions or Safety Concerns. Roll Left & Right (QC): 6 Sit to Lying (QC): 6 Lying to Sitting/Side of Bed(Q: 6 Sit to Stand (QC): 6 Chair/Nfs-ay-Rjhlu Xfer(QC): 6 Toilet Transfer (QC): 6 Car Transfer (QC): 6 Weight Bearing Right Lower Extremity: Right Weight Bearing/Tolerated Gait Training Does the Patient Walk?: Yes Distance: 500' x 2/200' x 2 Walk 10 feet (QC): 6 Walk 50 ft with 2 Turns(QC): 6 Walk 150 ft (QC): 6 Gait Assistive Device: FWW steady, reciprocal pattern Exercises Supine Ex: Ankle pumps, Quad Set, Heel Slides, Short Arc Quads, Straight leg raise, Hip abd/add Supine Reps: 15 (2 sets bilaterally) Seated Therapy Exercises: Ankle pumps, Long arc quads Seated Reps: 15 (2 sets bilaterally) NuStep Minutes: 20 NuStep Workload: 3 (to improve ROM right knee and increase strength and functiona mobility) Assessment Patient requires recovery periods due to fatigue and is educated during this time on energy conservation and exercise program. PT instructed patient and nu rsing to be up ad laura in room and hallway during day to increase independence. PT instructed patient to call for assistance if she felt unsteady or unsure of mobility. Patient voices understanding. PT Short Term Goals Short Term Goals Time Frame: Dec 21, 2019 Roll Left & Right: 6 Sit to lyin Lying to sitting on side of be: 4 Sit to stand: 4 (met) Chair/bbz-kz-bxvnk transfer: 4 (met) Walk 10 feet: 4 (met) Walk 50 feet with two turns: 4 (met) Walk 150 feet: 4 PT Detention Goals [employer] Builder Goals PT Detention Goals Time Frame: Jan 04, 2020 Roll Left & Right (QC): 6 Sit to Lying (QC): 6 Lying-Sitting on Side/Bed(QC): 6 Sit to Stand (QC): 6 Chair/Fep-mg-Siujb Xfer(QC): 6 Toilet Transfer (QC): 6 Car Transfer (QC): 6 Walk 10 feet (QC): 6 Walk 50ft with 2 Turns (QC): 6 Walk 150 ft (QC): 6 Walking 10ft on Uneven Surface: 6 PT Plan Treatment/Plan Treatment Plan: Continue Plan of Care Treatment Plan: Bed Mobility, Education, Functional Activity Radha, Functional Strength, Group Therapy, Gait, Safety, Therapeutic Exercise, Transfers Treatment Duration: Jan 04, 2020 Frequency: At least 5 of 7 days/Wk (IRF) Estimated Hrs Per Day: 1.5 hours per day Patient and/or Family Agrees t: Yes Time/GCodes Time In: 700 Time Out: 830 Total Billed Treatment Time: 90 Total Billed Treatment 1 visit EX x 5 75 min GT 15 min CRISS PLEITEZ PT Dec 18, 2019 08:32
[2019-12-18] MEDS: APIXABAN 2.5 MG (ELIQUIS) TABLET PO SCH ×2 (08:53→21:20)
[2019-12-18] MEDS: SENNA W/DOCUSATE (SENOKOT S) TABLET PO SCH ×2 (08:53→21:21)
[2019-12-18] MEDS: polyethylene glycoL POWDER 17 GM (MIRALAX) PACK PO SCH ×2 (08:53→21:21)
--- NOTE | 2019-12-18 10:19 | Occupational Ther Daily Note ---
OT Current Status-Daily Note Subjective Pt sitting in chair, agrees to therapy. Reports 2/10 right knee pain. ADL-Treatment Therapy Code Descriptions/Definitions Functional [place] Measure: 0=Not Assessed/NA 4=Minimal Assistance 1=Total Assistance 5=Supervision or Setup 2=Maximal Assistance 6=Modified [place] 3=Moderate Assistance 7=Complete IndependenceSCALE: Activities may be completed with or without assistive devices. 2-Bwysnjorir-pvdqobi completes the activity by him/herself with no assistance from a helper. 5-Set-up or Clean-up Assistance-helper sets up or cleans up; patient completes activity. [place] assists only prior to or following the activity. 4-Supervision or Touching Assistance-helper provides verbal cues and/or touching/steadying and/or contact guard assistance as patient completes activity. Assistance may be provided throughout the activity or intermittently. 3-Partial/Moderate Assistance-helper does LESS THAN HALF the effort. [place] lifts, holds or supports trunk or limbs, but provides less than half the effort. 2-Substantial/Maximal Assistance-helper does MORE THAN HALF the effort. [place] lifts or holds trunk or limbs and provides more than half the effort. 7-Mbsfxggit-dyusph does ALL the effort. Patient does none of the effort to complete the activity. Or, the assistance of 2 or more helpers is required for the patient to complete the activity. If activity was not attempted, code reason: 7-Patient Refused. 9-Not Applicable-not attempted and the patient did not perform the activity before the current illness, exacerbation or injury. 10-Not Attempted due to Environmental Limitations-(lack of equipment, weather restraints, etc.). 88-Not Attempted due to Medical Conditions or Safety Concerns. Oral Hygiene (QC): 6 (Pt completed oral care with modified independence while standing at sink) Shower/Bathe Self (QC): 5 (Pt able to wash/dry all areas after set up while seated and using hand held shower.) Upper Body Dressing (QC): 6 (Pt retrieved clothing from closet using FWW for balance. Doff/don shirt and bra without assist) Lower Body Dressing (QC): 6 (Pt retrieved clothing from closet. Doffed/donned Depends and pants with modified independence. Stood with good balance using FWW during pant hike) On/Off Footwear: 6 (Pt doffed/donned socks without assist. Pt able to don PAULY hose independently) Toileting Hygiene (QC): 6 (Pt completed toileting hygiene and clothing management without assist) Toilet Transfer (QC): 6 (Modified independent for toilet transfer using grab bars for balance and safety.) Pt completed ADL tasks with increased time. Takes occasional rest breaks secondary to decreased activity tolerance. Other Treatment Gait to therapy gym with FWW, no LOB noted. Arm bike x10 minutes to increase overall strength and activity tolerance needed for functional task completion. Pt performed task with minimal resistance and slow pace. Occasional rest breaks taken during activity. Pt returned to room, seated in chair with needs met and polar pack in place after session. OT [employer] As[employer] Goals Jail Goals Time Frame: Dec 28, 2019 Eating (QC): 6 Oral Hygiene (QC): 6 Toileting Hygiene (QC): 6 Shower/Bathe Self (QC): 6 Upper Body Dressing (QC): 6 Lower Body Dressing (QC): 6 On/Off Footwear (QC): 6 Additional Goals: 1-Demonstrate ADL Tasks, 2-Verbalize Understanding, 3- ImproveStrength/Radha 1=Demonstrate adherence to instructed precautions during ADL tasks. 2=Patient will verbalize/demonstrate understanding of assistive devices/modifications for ADL. 3=Patient will improve strength/tolerance for activity to enable patient to perform ADL's. OT Education/Plan Discharge Recommendations Plan/Recommendations: Continue POC Treatment Plan/Plan of Care Patient would benefit from OT for education, treatment and training to promote independence in ADL's, mobility, safety and/or upper extremity function for ADL's. Plan of Care: ADL Retraining, Functional Mobility, Group Exercise/Act as Ind, UE Funct Exercise/Act Treatment Duration: Dec 28, 2019 Frequency: At least 5 of 7 days/Wk (IRF) Estimated Hrs Per Day: 1.5 hours per day Rehab Potential: Fair Time/GCodes Start Time: 08:30 Stop Time: 10:00 Total Time Billed (hr/min): 90 Billed Treatment Time 1 visit, ADLx5(75minutes), EX(15minutes) ISIAH MOODY OT Dec 18, 2019 10:19
--- OUTSIDE RECORDS SUMMARY | 2019-12-18 11:38 | XMS REPORT | Continuity of Care Document ---
Demographics Preferred Language Unknown Marital Status Unknown Church Affiliation Unknown Race Unknown Ethnic Group Unknown Author Organization Unknown Address Unknown Phone Unavailable Allergies Active Description Code Type Severity Reaction Onset Reported/Identified Relationship to Patient Clinical Status Yes CODEINE SULFATE S EVERE OTHER Yes CODEINE SULFATE S EVERE SEVERE Yes SULFUR SEVERE OTHER Yes SULFUR SEVERE SEVERE Yes No Known Drug Allergies [id number] Drug Allergy Unknown N/A 12/03/2018 Yes codeine [id number] Drug Allergy Mild CODIENE 12/10/2018 Yes meperidine [id number] Drug Allerg y Mild GI UPSET 12/14/2018 Yes Sulfa (Sulfonamide Antibiotics) [id number] Drug Allergy Mild N/V 9 Yes tramadol [id number] Drug Allergy Moderate N/A 12/13/2019 Medications Medication Packaging Start Date St op Date Route Dosage Sig KETOROLAC VIAL INJ 30 MG/CC (TORADOL VIAL) MG 06/04/2018 06/04/2018 ONCE&1106 ORPHENADRINE INJ 60 MG/2CC (NORFLEX) MG 06/04/2018 06/04/2018 ONCE&1106 Problems Date Dx Coded Attending Type Code Diagnosis Diagnosed By 09/24/2017 Noah Napier V70.0 ROUTINE GENERAL MEDICAL EXAMINATION AT A HEALTH CARE FACILITY 09/24/2017 Noah Napier Z00.00 ENCOUNTER FOR GENERAL ADULT MEDICAL EXAMINATION WITHOUT ABNORMAL FINDINGS 09/24/2017 Driss V70.0 ROUT INE GENERAL MEDICAL EXAMINATION AT A HEALTH CARE FACILITY 09/24/2017 W Z00.00 ENC OUNTER FOR GENERAL ADULT MEDICAL EXAMINATION WITHOUT ABNORMAL FINDINGS 09/24/2017 Noah Napier V70.0 ROUTINE GENERAL MEDICAL EXAMINATION AT A HEALTH CARE FACILITY 09/24/2017 Noah Napier Z00.00 ENCOUNTER FOR GENERAL ADULT MEDICAL EXAMINATION WITHOUT ABNORMAL FINDINGS 09/25/2017 Noah Napier V70.0 ROUTINE GENERAL MEDICAL EXAMINATION AT A HEALTH CARE FACILITY 09/25/2017 Noah Napier Z00.00 ENCOUNTER FOR GENERAL ADULT MEDICAL EXAMINATION WITHOUT ABNORMAL FINDINGS 09/25/2017 Paoni, Noah W V70.0 ROUTINE GENERAL MEDICAL EXAMINATION AT A HEALTH CARE FACILITY 09/25/2017 Noah Napier W Z00.00 ENCOUNTER FOR GENERAL ADULT MEDICAL EXAMINATION WITHOUT ABNORMAL FINDINGS 02/04/2018 W 788.42 VIOLETTA ABIMAELRIA 02/04/2018 W R35.8 OTHE R POLYURIA 03/25/2018 Noah Napier W 781.2 ABNORMALITY OF GAIT 03/25/2018 Noah Napier W R26.81 UNSTEADINESS ON FEET 04/02/2018 Noah Napier W 781.2 ABNORMALITY OF GAIT 04/02/2018 Noah Napier W R26.81 UNSTEADINESS ON FEET 04/02/2018 Noah Napier W 781.2 ABNORMALITY OF GAIT 04/02/2018 Noah Napier W R26.81 UNSTEADINESS ON FEET 04/22/2018 Noah Napier A 781.2 ABNORMALITY OF GAIT 04/22/2018 Noah Napier A R26.81 UNSTEADINESS ON FEET 06/04/2018 QUIANA BERNARDO A 724.3 SCIATICA 06/04/2018 QUIANA BERNARDO M54.4 2 LUMBAGO WITH SCIATICA, LEFT SIDE 09/30/2018 Noha Napier A 458.0 ORTHOSTATIC HYPOTENSION 09/30/2018 Noah Napier I95.1 ORTHOSTATIC HYPOTENSION 11/24/2018 Noah Napier V70.0 ROUTINE GENERAL MEDICAL EXAMINATION AT A HEALTH CARE FACILITY 11/24/2018 Noah Napier Z00.00 ENCOUNTER FOR GENERAL ADULT MEDICAL EXAMINATION WITHOUT ABNORMAL FINDINGS 11/24/2018 W V70.0 ROUT INE GENERAL MEDICAL EXAMINATION AT A HEALTH CARE FACILITY 11/24/2018 W Z00.00 ENC OUNTER FOR GENERAL ADULT MEDICAL EXAMINATION WITHOUT ABNORMAL FINDINGS 11/24/2018 Noah Napier V70.0 ROUTINE GENERAL MEDICAL EXAMINATION AT A HEALTH CARE FACILITY 11/24/2018 Noah Napier Z00.00 ENCOUNTER FOR GENERAL ADULT MEDICAL EXAMINATION WITHOUT ABNORMAL FINDINGS 11/29/2018 ELIA KLEIN JOINT CLEANING MACHINE OPERATOR Ot N63.10 UNSPECIFIED LUMP IN THE RIGHT BREAST, UN 12/03/2018 ELIA KLEIN JOINT CLEANING MACHINE OPERATOR Ot N63.10 UNSPECIFIED LUMP IN THE RIGHT BREAST, UN 12/03/2018 ELIA KLEIN JOINT CLEANING MACHINE OPERATOR Ot N63.10 UNSPECIFIED LUMP IN THE RIGHT BREAST, UN 12/10/2018 LISS PHIPPS MD, Ot Z01.81 8 ENCOUNTER FOR OTHER PREPROCEDURAL EXAMIN 12/14/2018 LISS PHIPPS MD, Ot Z01.81 8 ENCOUNTER FOR OTHER PREPROCEDURAL EXAMIN 12/14/2018 LISS PHIPPS MD, Ot 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 12/14/2018 LISS PHIPPS MD Ot 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 12/14/2018 LISS PHIPPS MD Ot Z11.2 ENCOUNTER FOR SCREENING FOR OTHER BACTER 12/14/2018 LISS PHIPPS MD Ot Z79.89 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 12/14/2018 LISS PHIPPS MD, Ot Z80.0 FAMILY HISTORY OF MALIGNANT NEOPLASM OF 12/14/2018 LISS PHIPPS MD, Ot Z80.3 FAMILY HISTORY OF MALIGNANT NEOPLASM OF 12/14/2018 LISS PHIPPS MD, Ot Z86.71 8 PERSONAL HISTORY OF OTHER VENOUS THROMBO 12/14/2018 LISS PHIPPS MD Ot 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 12/14/2018 LISS PHIPPS MD Ot Z88.2 ALLERGY STATUS TO SULFONAMIDES STATUS 12/14/2018 LISS PHIPPS MD Ot Z88.5 ALLERGY STATUS TO NARCOTIC AGENT STATUS 12/17/2018 LSIS PHIPPS MD, Ot 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 12/17/2018 LISS PHIPPS MD, Ot 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 12/17/2018 LISS PHIPPS MD Ot Z11.2 ENCOUNTER FOR SCREENING FOR OTHER BACTER 12/17/2018 LISS PHIPPS MD Ot Z79.89 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 12/17/2018 LISS PHIPPS MD Ot Z80.0 FAMILY HISTORY OF MALIGNANT NEOPLASM OF 12/17/2018 LISS PHIPPS MD Ot Z80.3 FAMILY HISTORY OF MALIGNANT NEOPLASM OF 12/17/2018 LISS PHIPPS MD Ot Z86.71 8 PERSONAL HISTORY OF OTHER VENOUS THROMBO 12/17/2018 LISS PHIPPS MD Ot 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 12/17/2018 MOISE ELENA, LISS Ot Z88.2 ALLERGY STATUS TO SULFONAMIDES STATUS 12/17/2018 MOISE ELENA, LISS Ot Z88.5 ALLERGY STATUS TO NARCOTIC AGENT STATUS 03/31/2019 ELIA KLEIN JOINT CLEANING MACHINE OPERATOR Ot C50.911 MALIGNANT NEOPLASM OF UNSP SITE OF RIGHT 03/31/2019 LATOYAMAYLIN RICHARDSONIN L JOINT CLEANING MACHINE OPERATOR Ot C50.911 MALIGNANT NEOPLASM OF UNSP SITE OF RIGHT 06/07/2019 Paoni, Noah W 729.5 PAIN IN LIMB 06/07/2019 Paoni, Noah W M79.604 PAIN IN RIGHT LEG 06/07/2019 Paoni, Noha W 729.5 PAIN IN LIMB 06/07/2019 Paoni, Noah W M79.604 PAIN IN RIGHT LEG 06/07/2019 Paoni, Noah W 729.5 PAIN IN LIMB 06/07/2019 Paoni, Noah W M79.604 PAIN IN RIGHT LEG 06/07/2019 Paoni, Noah W 729.5 PAIN IN LIMB 06/07/2019 Paoni, Noah W M79.604 PAIN IN RIGHT LEG 06/28/2019 LATOYAELIA L JOINT CLEANING MACHINE OPERATOR Ot C50.911 MALIGNANT NEOPLASM OF UNSP SITE OF RIGHT 07/12/2019 MAYLIN KLEININ L JOINT CLEANING MACHINE OPERATOR Ot C50.911 MALIGNANT NEOPLASM OF UNSP SITE OF RIGHT 07/28/2019 NABBOUT, AXEL W 174.8 MALIGNANT NEOPLASM OF OTHER SPECIFIED SITES OF FEMALE BREAST 07/28/2019 NABBOUT, AXEL W C50.811 MALIGNANT NEOPLASM OF OVRLP SITES OF RIGHT FEMALE BREAST 07/28/2019 NABBOUT, AXEL W I95.1 ORTHOSTATIC HYPOTENSION 07/28/2019 NABBOUT, AXEL W M54.42 LUMBAGO WITH SCIATICA, LEFT SIDE 07/28/2019 NABBOUT, AXEL W M79.604 PAIN IN RIGHT LEG 07/28/2019 NABBOUT, AXEL W R26.81 UNSTEADINESS ON FEET 07/28/2019 NABBOUT, AXEL W R35.8 OTHER POLYURIA 07/28/2019 NABBOUT, AXEL W Z00.00 ENCNTR FOR GENERAL ADULT MEDICAL EXAM W/O ABNORMAL FINDINGS 11/10/2019 UNLISTED, UNLISTED W 724. 5 BACKACHE, UNSPECIFIED 11/10/2019 UNLISTED, UNLISTED W M54. 9 DORSALGIA, UNSPECIFIED 11/19/2019 UNLISTED, UNLISTED W 724. 5 BACKACHE, UNSPECIFIED 11/19/2019 UNLISTED, UNLISTED W M54. 9 DORSALGIA, UNSPECIFIED 12/13/2019 LATOYA, ELIA L JOINT CLEANING MACHINE OPERATOR Ot C50.911 MALIGNANT NEOPLASM OF UNSP SITE OF RIGHT 12/14/2019 LATOYA, ELIA L JOINT CLEANING MACHINE OPERATOR Ot C50.911 MALIGNANT NEOPLASM OF UNSP SITE OF RIGHT 12/14/2019 LATOYA, ELIA L JOINT CLEANING MACHINE OPERATOR Ot C50.911 MALIGNANT NEOPLASM OF UNSP SITE OF RIGHT 12/14/2019 LATOYA, ELIA L JOINT CLEANING MACHINE OPERATOR Ot C50.911 MALIGNANT NEOPLASM OF UNSP SITE OF RIGHT 12/15/2019 LATOYA, ELIA L JOINT CLEANING MACHINE OPERATOR Ot C50.911 MALIGNANT NEOPLASM OF UNSP SITE OF RIGHT Procedures There is no data. Results Test Result Range Comprehensive Metabolic Panel - 03/11/17 08:51 Albumin 4.0 g/dL 3.6-5.1 ALP 68 U/L 35-130 ALT 17 U/L 6-45 Anion Gap 14 6-14 AST 21 U/L 2-40 BUN 17 mg/dL 5-25 Calcium 9.5 mg/dL 8.3-10.4 Chloride 105 mmol/L 95-114 CO2 25 mEq/L 22-33 Creat 0.79 mg/dL 0.50-1.50 eGFR 70 mL/min/1.73m2 >59 Globulin 4.0 g/dL 2.3-3.5 Glucose 89 mg/dL 70-110 Osmo 290 280-295 Potassium 4.3 mmol/L 3.5-5.3 Sodium 140 mmol/L 134-148 TBil 0.7 mg/dL 0.2-1.2 TP 8.0 g/dL 6.0-8.3 Urinalysis - 04/23/17 16:16 Icotest N/A Negative Urine Volume Urine Volume Sufficient (10mL) Urine-Appearance Clear Clear Urine-Bilirubin Negative Negative Urine-Blood Negative Negative Urine-Color Yellow Colorless-Lt. Stark ow Urine-Epithelial Cells 5-10/HPF Urine-Glucose Negative Negative Urine-Ketones Trace Negative Urine-Leukocytes Negative Negative Urine-Nitrite Negative Negative Urine-pH 5.0 5-8.5 Urine-Protein Negative Negative Urine-Specific [place] >=1.030 1.000-1 .030 Urine-WBC 2-5/HPF Urobilinogen 0.2 E.U./dL 0.2-1.0 Protime - 05/16/17 15:19 INR 1.0 1.0-4.0 Protime 11.6 Sec 9.9-12.8 Protime - 05/21/17 12:49 INR 2.3 1.0-4.0 Protime 27.6 Sec 9.9-12.8 Urinalysis - 06/12/17 14:03 Icotest N/A Negative Urine Volume Urine Volume Sufficient (10mL) Urine-Appearance Slightly Cloudy Clear Urine-Bacteria 2+ Urine-Bilirubin Negative Negative Urine-Blood 2+ Negative Urine-Color Yellow Colorless-Lt. Stark ow Urine-Glucose Negative Negative Urine-Ketones Negative Negative Urine-Leukocytes 2+ Negative Urine-Nitrite Negative Negative Urine-Other Culture to follow Urine-pH 5.5 5-8.5 Urine-Protein 2+ Negative Urine-RBC 20-40/HPF Urine-Specific [place] <=1.005 1.000-1 .030 Urine-WBC TNTC Urobilinogen 0.2 E.U./dL 0.2-1.0 Urine Culture - 06/12/17 14:03 PRELIM CULTURE RESULTS 50,000-100,000 Gram N egative Lactose Hogshead Filler GERSON / ID to Follow CULTURE SOURCE clean catch reflex Sensi - 06/12/17 14:03 FINAL CULTURE RESULTS Escherichia coli (Isolate 1) Ampicillin/Sulbactam <=8/4 Ampicillin <=8 Amoxicillin/K Clavulanate <=8/4 Ceftriaxone <=8 Ciprofloxacin <=1 Nitrofurantoin <=32 Gentamicin <=4 Levofloxacin <=2 Trimethoprim/ Sulfamethoxazole <=2/38 Tetracycline <=4 Amikacin <=16 Aztreonam <=8 Ceftazidime <=1 Ceftazidime/K Clavulanate <=0.25 Cephalothin <=8 Cefotaxime <=2 Cefotaxime/K Clavulanate <=0.5 Cefoxitin <=8 Cefazolin <=8 Cefepime <=8 Cefuroxime <=4 Ertapenem <=1 Imipenem <=4 Meropenem <=4 Piperacillin/Tazobactam <=16 Piperacillin <=16 Tigecycline <=2 Tobramycin <=4 Lipid Panel - 09/24/17 09:26 C/HDL 3.0 3.7-6.7 Cholesterol 206 mg/dL 100-240 HDL 68 mg/dL 30-85 LDL-Calculated 118 mg/dL 0-100 Trig 102 mg/dL 35-160 VLDL 20 mg/dL 0-42 BMP - 09/24/17 09:26 Anion Gap 13 6-14 BUN 16 mg/dL 5-25 Calcium 9.4 mg/dL 8.3-10.4 Chloride 109 mmol/L 95-114 CO2 24 mEq/L 22-33 Creat 0.67 mg/dL 0.50-1.50 eGFR 85 mL/min/1.73m2 >59 Glucose 92 mg/dL 70-110 Osmo 294 280-295 Potassium 4.2 mmol/L 3.5-5.3 Sodium 142 mmol/L 134-148 Urine Culture - 02/04/18 18:12 PRELIM CULTURE RESULTS 10,000-20,000 Gram Po sitive Mixed Anjelica Probable Skin Contaminant FINAL CULTURE RESULTS 10,000-20,000 Gram Pos itive Mixed Anjelica Probable Skin Contaminant MEDIA PLATED Setup at 18:44 on 02/04/2018 CULTURE SOURCE Urine/[id number]\ Urinalysis - 06/04/18 11:27 Icotest N/A Negative Urine-Appearance Clear Clear Urine-Bacteria Trace Urine-Bilirubin Negative Negative Urine-Blood Negative Negative Urine-Color Yellow Colorless-Lt. Stark ow Urine-Epithelial Cells 0-5/HPF Urine-Glucose Negative Negative Urine-Ketones Negative Negative Urine-Leukocytes Negative Negative Urine-Nitrite Negative Negative Urine-pH 7.5 5-8.5 Urine-Protein Negative Negative Urine-RBC Negative Urine-Specific [place] 1.015 1.000-1 .030 Urine-WBC 0-2/HPF Urobilinogen 0.2 E.U./dL 0.2-1.0 Comprehensive Metabolic Panel - 09/30/18 14:10 Albumin 4.3 g/dL 3.6-5.1 ALP 65 U/L 35-130 ALT 16 U/L 6-45 Anion Gap 14 6-14 AST 25 U/L 2-40 BUN 15 mg/dL 5-25 Calcium 9.7 mg/dL 8.3-10.4 Chloride 108 mmol/L 95-114 CO2 25 mEq/L 22-33 Creat 0.78 mg/dL 0.50-1.50 eGFR 71 mL/min/1.73m2 >59 Globulin 3.6 g/dL 2.3-3.5 Glucose 95 mg/dL 70-110 Osmo 298 280-295 Potassium 3.4 mmol/L 3.5-5.3 Sodium 144 mmol/L 134-148 TBil 0.4 mg/dL 0.2-1.2 TP 7.9 g/dL 6.0-8.3 Urinalysis - 09/30/18 14:40 Icotest N/A Negative Urine Volume Urine Volume Sufficient (10mL) Urine Yeast No Yeast present Urine-Appearance Slightly Cloudy Clear Urine-Bacteria Trace Urine-Bilirubin Negative Negative Urine-Blood Negative Negative Urine-Color Yellow Colorless-Lt. Stark ow Urine-Epithelial Cells 5-10/HPF Urine-Glucose Negative Negative Urine-Ketones Negative Negative Urine-Leukocytes Negative Negative Urine-Mucus 2+ Urine-Nitrite Negative Negative Urine-Other Urine Saved if Culture Need ed (48hrs from time of collection) Urine-pH 6.0 5-8.5 Urine-Protein Negative Negative Urine-RBC 0-2/HPF Urine-Specific [place] 1.025 1.000-1 .030 Urine-WBC Rare/HPF Urobilinogen 0.2 0.2-1.0 Lipid Panel - 11/24/18 10:35 C/HDL 2.7 3.7-6.7 Cholesterol 210 mg/dL 100-240 HDL 77 mg/dL 30-85 LDL-Calculated 120 mg/dL 0-100 Trig 66 mg/dL 35-160 VLDL 13 mg/dL 0-42 Potassium - 11/24/18 10:35 Potassium 3.9 mmol/L 3.5-5.3 Methicillin resistant Staphylococcus aur eus (MRSA) screening culture - 12/14/18 07:20 Methicillin resistant Staphylococcus aureus (MRSA) scr eening culture NEG NRG Urine Culture - 06/07/19 15:41 PRELIM CULTURE RESULTS 50,000-100,000 Gram N egative Lactose Hogshead Filler GERSON / ID to Follow MEDIA PLATED Setup at 16:10 on 06/07/2019 CULTURE SOURCE CC Sensi - 06/07/19 15:41 FINAL CULTURE RESULTS Escherichia coli (Isolate 1) Ampicillin/Sulbactam <=8/4 Ampicillin <=8 Amoxicillin/K Clavulanate <=8/4 Ceftriaxone <=8 Ciprofloxacin <=1 Nitrofurantoin <=32 Gentamicin <=4 Levofloxacin <=2 Trimethoprim/ Sulfamethoxazole >2/38 Tetracycline <=4 Amikacin <=16 Aztreonam <=8 Ceftazidime <=1 Ceftazidime/K Clavulanate <=0.25 Cephalothin <=8 Cefotaxime <=2 Cefotaxime/K Clavulanate <=0.5 Cefoxitin <=8 Cefazolin <=8 Cefepime <=8 Cefuroxime <=4 Ertapenem <=1 Imipenem <=4 Meropenem <=4 Piperacillin/Tazobactam <=16 Piperacillin <=16 Tigecycline <=2 Tobramycin <=4 CEA (Serial Monitor) - 07/13/19 12:45 CEA 1.6 ng/mL 0.0-4.7 PDF . CBC with Auto Diff - 07/13/19 12:45 Baso% 0.30 % 0.00-2.50 Eos 0.2 K/uL 0.0-0.7 Eos% 2.4 % 0.0-7.0 Hct 39.6 % 36.0-46.0 Hgb 13.2 g/dL 13.0-15.0 Lym 1.91 K/uL 0.60-3.40 Lym% 29.0 % 10.0-50.0 MCH 32.8 pg 27.0-31.0 MCHC 33.3 g/dL 32.0-36.0 MCV 98.3 fL 80.0-97.0 Caldwell% 10.3 % 0.0-12.0 MPV 10.3 fL 7.4-10.0 Laura% 58.0 % 37.0-80.0 Plt 258 K/uL 150-400 RBC 4.03 M/uL 3.60-5.00 RDW 13.2 % 11.6-14.8 WBC 6.59 K/uL 5.00-10.00 Laura 3.82 K/uL 2.00-6.90 Caldwell 0.7 K/uL 0.0-0.9 Baso 0.0 K/uL 0.0-0.2 CEA (Serial Monitor) - 07/13/19 12:45 CEA 1.6 NG/ML 0.0-4.7 PDF . CA 15-3 (Serial Monitor) - 07/13/19 12:4 5 PDF . CANCER ANTIGEN 15-3 14.2 U/ML 0.0-25.0 Comprehensive Metabolic Panel - 07/16/19 13:29 Albumin 4.3 g/dL 3.6-5.1 ALP 73 U/L 35-130 ALT 17 U/L 6-45 Anion Gap 18 6-14 AST 39 U/L 2-40 BUN 21 mg/dL 5-25 Calcium 10.2 mg/dL 8.3-10.4 Chloride 108 mmol/L 95-114 CO2 21 mEq/L 22-33 Creat 0.79 mg/dL 0.50-1.50 eGFR 70 mL/min/1.73m2 >59 Globulin 3.3 g/dL 2.3-3.5 Glucose 85 mg/dL 70-110 Osmo 295 280-295 Potassium 4.6 mmol/L 3.5-5.3 Sodium 142 mmol/L 134-148 TBil 0.5 mg/dL 0.2-1.2 TP 7.6 g/dL 6.0-8.3 Creatinine - 08/25/19 16:29 Creat 0.99 mg/dL 0.50-1.50 eGFR 54 mL/min/1.73m2 >59 CEA - 11/19/19 10:52 CEA 1.9 ng/mL 0.0-4.7 Comprehensive Metabolic Panel - 11/19/19 10:52 Albumin 4.4 g/dL 3.6-5.1 ALP 61 U/L 35-130 ALT 17 U/L 6-45 Anion Gap 14 6-14 AST 23 U/L 2-40 BUN 15 mg/dL 5-25 Calcium 9.9 mg/dL 8.3-10.4 Chloride 106 mmol/L 95-114 CO2 25 mEq/L 22-33 Creat 0.80 mg/dL 0.50-1.50 eGFR 69 mL/min/1.73m2 >59 Globulin 3.2 g/dL 2.3-3.5 Glucose 84 mg/dL 70-110 Osmo 291 280-295 Potassium 4.1 mmol/L 3.5-5.3 Sodium 141 mmol/L 134-148 TBil 0.7 mg/dL 0.2-1.2 TP 7.6 g/dL 6.0-8.3 CA 15-3 (Serial Monitor) - 11/19/19 10:5 2 PDF . CANCER ANTIGEN 15-3 13.2 U/ML 0.0-25.0 CEA - 11/19/19 10:52 CEA 1.9 NG/ML 0.0-4.7 CA 15-3 (Serial Monitor) - 11/19/19 10:5 2 Cancer Antigen 15-3 13.2 U/mL 0.0-25.0 PDF . Complete blood count (CBC) with automate d white blood cell (WBC) differential - 12/14/19 05:25 Blood leukocytes automated count (number/volume) 8.4 10*3/uL 4.3-11.0 Blood erythrocytes automated count (number/volume) 3.16 10*6/uL 4.35-5.85 Venous blood hemoglobin measurement (mass/volume) 10.3 g/dL 11.5-16.0 Blood hematocrit (volume fraction) 31 % 35-52 Automated erythrocyte mean corpuscular volume 98 [ foz_us] 80-99 Automated erythrocyte mean corpuscular h emoglobin (mass per erythrocyte) 33 pg 25-34 Automated erythrocyte mean corpuscular h emoglobin concentration measurement (mass/volume) 33 g/dL 32-36 Automated erythrocyte distribution width ratio 14. 2 % 10.0- 14.5 Automated blood platelet count (count/volume) 280 10*3/uL 130-400 Automated blood platelet mean volume measurement 10.4 [foz_us] 7.4-10.4 Automated blood neutrophils/100 leukocytes 65 % 42-75 Automated blood lymphocytes/100 leukocytes 17 % 12-44 Blood monocytes/100 leukocytes 14 % 0-12 Automated blood eosinophils/100 leukocytes 3 % 0-10 Automated blood basophils/100 leukocytes 0 % 0-10 Blood neutrophils automated count (number/volume) 5.5 10*3 1.8-7.8 Blood lymphocytes automated count (number/volume) 1.4 10*3 1.0-4.0 Blood monocytes automated count (number/volume) 1. 2 10*3 0.0-1.0 Automated eosinophil count 0.3 10*3/uL 0 .0-0.3 Automated blood basophil count (count/volume) 0.0 10*3/uL 0.0-0.1 Comprehensive metabolic panel - 12/14/19 05:25 Serum or plasma sodium measurement (moles/volume) 143 mmol/L 135-145 Serum or plasma potassium measurement (moles/volume) 3.8 mmol/L 3.6-5.0 Serum or plasma chloride measurement (moles/volume) 110 mmol/L 98-107 Carbon dioxide 24 mmol/L 21-32 Serum or plasma anion gap determination (moles/volume) 9 mmol/L 5-14 Serum or plasma urea nitrogen measurement (mass/volume ) 13 mg/dL 7-18 Serum or plasma creatinine measurement (mass/volume) 0.69 mg/dL 0.60-1.30 Serum or plasma urea nitrogen/creatinine mass ratio 19 NRG Serum or plasma creatinine measurement w ith calculation of estimated glomerular filtration rate > NRG Serum or plasma glucose measurement (mass/volume) 94 mg/dL 70-105 Serum or plasma calcium measurement (mass/volume) 8.5 mg/dL 8.5-10.1 Serum or plasma total bilirubin measurement (mass/volu me) 0.6 mg/dL 0.1-1.0 Serum or plasma alkaline phosphatase christina surement (enzymatic activity/volume) 63 U/L 40-136 Serum or plasma aspartate aminotransfera se measurement (enzymatic activity/volume) 23 U/L 5-34 Serum or plasma alanine aminotransferase measurement (enzymatic activity/volume) 13 U/L 0-55 Serum or plasma protein measurement (mass/volume) 6.4 g/dL 6.4-8.2 Serum or plasma albumin measurement (mass/volume) 3.2 g/dL 3.2-4.5 CALCIUM CORRECTED 9.1 mg/dL 8.5-10.1 IRON TEST - 12/14/19 05:25 Serum or plasma iron measurement (mass/volume) 23 % 35-180 Encounters ACCT No. Visit Date/Time Discharge Status Pt. Type Provider Facility Loc./Unit Complaint [id number] 11/22/2019 16:10:00 Document Registration [id number] 01/21/2019 16:14:00 019 23:59:59 CLS Preadmit TRENA FLORES Via [facility] [id number] 12/14/2018 06:46:00 18:15:00 DIS Outpatient LISS PHIPPS MD Via [facility] CARD RIGHT BREAST CANCER [id number] 12/10/2018 12:36:00 23:59:59 CLS Preadmit ELIA KLEIN JOINT CLEANING MACHINE OPERATOR Via [facility] RT BREAST CA [id number] 12/10/2018 12:34:00 23:59:59 CLS Preadmit ELIA KLEIN JOINT CLEANING MACHINE OPERATOR Via [facility] RT BREAST [place] [id number] 12/10/2018 13:25:00 14:25:00 DIS Outpatient LISS PHIPPS MD Via [facility] PREOP RIGHT BREAST CANCER [id number] 12/03/2018 10:19:00 23:59:59 CLS Outpatient ELIA KLEIN JOINT CLEANING MACHINE OPERATOR Via [facility] RAD R BREAST MASS [id number] 12/13/2019 16:19:[address] Inpatient TONG GENTILE DO [facility] [place] [facility] R TKA [id number] 07/15/2019 20:08:00 Document Registration [id number] 11/25/2019 10:07:00 11/25/2019 23:59 :00 DIS Outpatient AXEL FRYE [id number] 11/19/2019 10:48:00 11/19/2019 23:59 :00 DIS Outpatient AXEL FRYE [id number] 11/02/2019 13:58:00 11/19/2019 10:40 :00 DIS Outpatient UNLISTED, UNLISTED [id number] 09/14/2019 10:29:00 09/14/2019 23:59: 00 DIS Outpatient JENIFER GONZALEZ [id number] 09/02/2019 16:43:00 09/02/2019 23:59: 00 DIS Outpatient Noah Napier [id number] 08/29/2019 00:00:00 08/29/2019 23:59: 00 DIS Outpatient Noah Napier [id number] 08/25/2019 16:22:00 08/25/2019 23:59: 00 DIS Outpatient Noah Napier [id number] 08/24/2019 09:37:00 08/24/2019 23:59: 00 DIS Outpatient Paoni, Noah [id number] 07/28/2019 16:19:00 07/28/2019 23:59: 00 DIS Outpatient SELF, GIBSONY [id number] 07/28/2019 16:10:00 07/28/2019 16:37: 00 DIS Outpatient NABBOUT, AXEL [id number] 07/16/2019 13:25:00 07/16/2019 23:59: 00 DIS Outpatient NABBOUT, AXEL [id number] 07/13/2019 12:34:00 07/13/2019 23:59: 00 DIS Outpatient NABBOUT, AXEL [id number] 06/16/2019 11:39:00 06/16/2019 23:59: 00 DIS Outpatient ROBERTAILYN CADE [id number] 06/07/2019 15:40:00 06/07/2019 23:59: 00 DIS Outpatient Pasonja, Noah [id number] 06/07/2019 14:44:00 06/07/2019 23:59: 00 DIS Outpatient Pasonja, Noah [id number] 06/07/2019 09:50:00 06/07/2019 23:59: 00 DIS Outpatient Paoni, Noah [id number] 06/07/2019 09:12:00 06/07/2019 23:59: 00 DIS Outpatient Paoni, Noah [id number] 11/24/2018 09:52:00 11/24/2018 23:59: 00 DIS Outpatient Paoni, Noah [id number] 09/30/2018 13:39:00 09/30/2018 14:30: 00 DIS Outpatient Paoni, Noah [id number] 06/10/2018 09:36:00 06/10/2018 23:59: 00 DIS Outpatient Paoni, Noah [id number] 06/10/2018 00:00:00 06/10/2018 23:59: 00 DIS Outpatient Paoni, Noah [id number] 06/04/2018 10:27:00 06/04/2018 12:20: 00 DIS Outpatient QUIANA BERNARDO [facility] [id number] 03/18/2018 09:09:00 04/22/2018 08:45: 00 DIS Outpatient Noah Napier [id number] 03/10/2018 15:32:00 03/10/2018 15:32: 00 DIS Outpatient Scout Lozano [id number] 02/04/2018 18:11:00 02/04/2018 23:59: 00 DIS Outpatient PaNoah casillas [id number] 09/25/2017 13:30:00 09/25/2017 23:59: 00 DIS Outpatient Paoni, Noah [id number] 09/24/2017 09:22:00 09/24/2017 23:59: 00 DIS Outpatient Paoni, Noah [id number] 07/15/2017 13:14:00 07/15/2017 23:59: 00 DIS Outpatient SELF, PAIGE [id number] 06/12/2017 13:54:00 06/12/2017 23:59: 00 DIS Outpatient Paoni, Noah [id number] 05/21/2017 12:44:00 05/21/2017 23:59: 00 DIS Outpatient Paoni, Noah [id number] 05/16/2017 15:18:00 05/16/2017 23:59: 00 DIS Outpatient PaoniNoah [id number] 05/16/2017 13:09:00 05/16/2017 23:59: 00 DIS Outpatient PaoniNoah [id number] 04/23/2017 15:58:00 04/23/2017 23:59: 00 DIS Outpatient Paoni, Noah [id number] 03/19/2017 00:00:00 03/19/2017 23:59: 00 DIS Outpatient PaoniNoah [id number] 03/11/2017 08:42:00 03/11/2017 23:59: 00 DIS Outpatient PaoniNoah [id number] 11/24/2018 08:39:00 Document Registration [id number] 07/29/2018 10:48:03 Document Registration [id number] 06/04/2018 11:06:24 Document Registration [id number] 02/04/2018 10:13:00 Document Registration [id number] 09/24/2017 08:02:00 Document Registration [id number] 11/23/2019 02:06:00 Document Registration
--- NOTE | 2019-12-18 12:25 | PM&R Progress Note ---
Subjective HPI/CC On Admission Date Seen by Provider: Dec 18, 2019 Time Seen by Provider: 12:30 Subjective/Events-last exam Patient doing well BM regular Eliquis maintained BID Did not sleep well so will give Flexeril and Melatonin together tonight to help with that Pain is controlled on APAP Using polar ice apparatus Conferred with RN Reviewed therapy notes Checked meds and labs Review of Systems Cardiovascular: Edema Musculoskeletal: leg pain Objective Exam Vital Signs Vital Signs Date Time Temp Pulse Resp B/P (MAP) Pulse Ox O2 Delivery O2 Flow Rate FiO2 12/18/19 17:03 37.0 89 22 133/62 (85) 94 Room Air Capillary Refill : Less Than 3 SecondsLess Than 3 Seconds General Appearance: No Apparent Distress, WD/WN HEENT: PERRL/EOMI, Normal ENT Inspection, Pharynx Normal Neck: Full Range of Motion, Normal Inspection, Non Tender, Supple, Carotid Bruit Respiratory: Chest Non Tender, Lungs Clear, Normal Breath Sounds, No Accessory Muscle Use, No Respiratory Distress Cardiovascular: Regular Rate, Rhythm, No Gallop, No JVD, No Murmur, Normal Peripheral Pulses Gastrointestinal: Normal Bowel Sounds, No Organomegaly, No Pulsatile Mass, Non Tender, Soft Back: Normal Inspection, No CVA Tenderness, No Vertebral Tenderness Extremity: Normal Capillary Refill, Normal Inspection, Normal Range of Motion (except right leg post op), Non Tender, No Calf Tenderness, Pedal Edema (right leg 1+) Neurologic/Psychiatric: Alert, Oriented x3, No Motor/Sensory Deficits, Normal Mood/Affect Skin: Normal Color, Warm/Dry Lymphatic: No Adenopathy Results/Procedures Lab Patient resulted labs reviewed. FIM Transfers Therapy Code Descriptions/Definitions Functional [place] Measure: 0=Not Assessed/NA 4=Minimal Assistance 1=Total Assistance 5=Supervision or Setup 2=Maximal Assistance 6=Modified [place] 3=Moderate Assistance 7=Complete IndependenceSCALE: Activities may be completed with or without assistive devices. 3-Pxtlrefkdo-jfwjqnh completes the activity by him/herself with no assistance from a helper. 5-Set-up or Clean-up Assistance-helper sets up or cleans up; patient completes activity. [place] assists only prior to or following the activity. 4-Supervision or Touching Assistance-helper provides verbal cues and/or touching/steadying and/or contact guard assistance as patient completes activity. Assistance may be provided throughout the activity or intermittently. 3-Partial/Moderate Assistance-helper does LESS THAN HALF the effort. [place] lifts, holds or supports trunk or limbs, but provides less than half the effort. 2-Substantial/Maximal Assistance-helper does MORE THAN HALF the effort. [place] lifts or holds trunk or limbs and provides more than half the effort. 6-Wgywticky-vslnlq does ALL the effort. Patient does none of the effort to complete the activity. Or, the assistance of 2 or more helpers is required for the patient to complete the activity. If activity was not attempted, code reason: 7-Patient Refused. 9-Not Applicable-not attempted and the patient did not perform the activity before the current illness, exacerbation or injury. 10-Not Attempted due to Environmental Limitations-(lack of equipment, weather restraints, etc.). 88-Not Attempted due to Medical Conditions or Safety Concerns. Roll Left to Right (QC): 6 Sit to Lying (QC): 6 Sit to Stand (QC): 6 Chair/Xdq-ut-Lxdoy Xfer(QC): 6 Car Transfer (QC): 6 Gait Training Does the Patient Walk?: Yes Distance: 500' x 2/200' x 2 Walk 10 feet (QC): 6 Walk 50 ft with 2 Turns(QC): 6 Walk 150 ft (QC): 6 Walking 10ft/uneven surface-QC: 4 Gait Persons Needed: 1 Gait Assistive Device: FWW Wheelchair Training Does the Pt Use a Wheelchair?: No Stair Training Stair Training: Handrails/: 2 handrails #of Steps: 4 1 Step (curb) (QC): 4 4 Steps (QC): 4 (SBA; heavy reliance on B handrails; step to gait pattern) 12 Steps (QC): 88 Stairs: Pattern: Step to Balance Picking up an Object (QC): 88 ADL-Treatment Eating (QC): 6 (Pt reports feeding self and managing all containers without assist) Oral Hygiene (QC): 6 (Pt completed oral care with modified independence while standing at sink) Shower/Bathe Self (QC): 5 (Pt able to wash/dry all areas after set up while seated and using hand held shower.) Upper Body Dressing (QC): 6 (Pt retrieved clothing from closet using FWW for balance. Doff/don shirt and bra without assist) Lower Body Dressing (QC): 6 (Pt retrieved clothing from closet. Doffed/donned Depends and pants with modified independence. Stood with good balance using FWW during pant hike) On/Off Footwear (QC): 6 (Pt doffed/donned socks without assist. Pt able to don PAULY hose independently) Toileting Hygiene (QC): 6 (Pt completed toileting hygiene and clothing management without assist) Toilet Transfer (QC): 6 (Modified independent for toilet transfer using grab bars for balance and safety.) Assessment/Plan Assessment and Plan Assess & Plan/Chief Complaint Assessment: (1) Status post right knee replacement ICD Codes: Z96.651 - Presence of right artificial knee joint (2) History of DVT of lower extremity ICD Codes: Z86.718 - Personal history of other venous thrombosis and embolism (3) Anticoagulant prescribed (4) Arthritis ICD Codes: M19.90 - Unspecified osteoarthritis, unspecified site (5) Advanced age ICD Codes: R54 - Age-related physical debility (6) Atrial fib/flutter, transient (7) Breast cancer, right ICD Codes: C50.911 - Malignant neoplasm of unspecified site of right female breast Right leg edema Plan: IRF protocol Monitor hgb and add iron QOD Eliquis Pain control Elevated right leg Insomnia treatment (1) Status post right knee replacement (2) History of DVT of lower extremity (3) Anticoagulant prescribed (4) Arthritis (5) Advanced age (6) Atrial fib/flutter, transient (7) Breast cancer, right TONG GENTILE DO Dec 18, 2019 12:25
[2019-12-18] MEDS: CALCIUM CARB + VIT D 600 MG (CALCARB + D) TAB PO SCH (12:28)
[2019-12-18 17:03] VITALS: BP 133/62
[2019-12-18] MEDS: GABAPENTIN 100 MG (NEURONTIN) CAP PO SCH (21:20)
[2019-12-19] MEDS: ACETAMINOPHEN 500 MG TAB (TYLENOL) PO SCH ×3 (05:24→21:34)
[2019-12-19 05:45] VITALS: BP 129/68
[2019-12-19] MEDS: APIXABAN 2.5 MG (ELIQUIS) TABLET PO SCH ×2 (08:55→20:39)
[2019-12-19] MEDS: polyethylene glycoL POWDER 17 GM (MIRALAX) PACK PO SCH ×2 (08:57→20:43)
[2019-12-19] MEDS: SENNA W/DOCUSATE (SENOKOT S) TABLET PO SCH ×2 (08:58→20:44)
[2019-12-19] MEDS: CALCIUM CARB + VIT D 600 MG (CALCARB + D) TAB PO SCH (11:26)
[2019-12-19] MEDS: FERROUS SULF 325 MG (IRON) TAB PO SCH (11:26)
[2019-12-19] MEDS: DOCUSATE SODIUM 100 MG (COLACE) CAP PO PRN ×2 (11:35→20:39)
--- NOTE | 2019-12-19 15:41 | PM&R Progress Note ---
Subjective HPI/CC On Admission Date Seen by Provider: Dec 19, 2019 Time Seen by Provider: 11:00 Subjective/Events-last exam Patient doing very well BM regular Eliquis maintained BID Slept well last night Pain is controlled on APAP Using polar ice apparatus Conferred with RN Reviewed therapy notes Checked meds and labs Review of Systems Musculoskeletal: leg pain Objective Exam Vital Signs Vital Signs Date Time Temp Pulse Resp B/P (MAP) Pulse Ox O2 Delivery O2 Flow Rate FiO2 12/19/19 17:04 37.2 70 18 137/75 (95) 97 Room Air Capillary Refill : Less Than 3 SecondsLess Than 3 Seconds General Appearance: No Apparent Distress, WD/WN HEENT: PERRL/EOMI, Normal ENT Inspection, Pharynx Normal Neck: Full Range of Motion, Normal Inspection, Non Tender, Supple, Carotid Bru it Respiratory: Chest Non Tender, Lungs Clear, Normal Breath Sounds, No Accessory Muscle Use, No Respiratory Distress Cardiovascular: Regular Rate, Rhythm, No Gallop, No JVD, No Murmur, Normal Peripheral Pulses Gastrointestinal: Normal Bowel Sounds, No Organomegaly, No Pulsatile Mass, Non Tender, Soft Back: Normal Inspection, No CVA Tenderness, No Vertebral Tenderness Extremity: Normal Capillary Refill, Normal Inspection, Normal Range of Motion (except right leg post op), Non Tender, No Calf Tenderness, Pedal Edema (right leg 1+) Neurologic/Psychiatric: Alert, Oriented x3, No Motor/Sensory Deficits, Normal Mood/Affect Skin: Normal Color, Warm/Dry Lymphatic: No Adenopathy Results/Procedures Lab Patient resulted labs reviewed. FIM Transfers Therapy Code Descriptions/Definitions Functional [place] Measure: 0=Not Assessed/NA 4=Minimal Assistance 1=Total Assistance 5=Supervision or Setup 2=Maximal Assistance 6=Modified [place] 3=Moderate Assistance 7=Complete IndependenceSCALE: Activities may be completed with or without assistive devices. 8-Jcfntxztoq-wnjaabm completes the activity by him/herself with no assistance from a helper. 5-Set-up or Clean-up Assistance-helper sets up or cleans up; patient completes activity. [place] assists only prior to or following the activity. 4-Supervision or Touching Assistance-helper provides verbal cues and/or touching/steadying and/or contact guard assistance as patient completes activity . Assistance may be provided throughout the activity or intermittently. 3-Partial/Moderate Assistance-helper does LESS THAN HALF the effort. [place] lifts, holds or supports trunk or limbs, but provides less than half the effort. 2-Substantial/Maximal Assistance-helper does MORE THAN HALF the effort. [place] lifts or holds trunk or limbs and provides more than half the effort. 5-Ealrmmohm-ofecra does ALL the effort. Patient does none of the effort to complete the activity. Or, the assistance of 2 or more helpers is required for the patient to complete the activity. If activity was not attempted, code reason: 7-Patient Refused. 9-Not Applicable-not attempted and the patient did not perform the activity before the current illness, exacerbation or injury. 10-Not Attempted due to Environmental Limitations-(lack of equipment, weather restraints, etc.). 88-Not Attempted due to Medical Conditions or Safety Concerns. Roll Left to Right (QC): 6 Sit to Lying (QC): 6 Sit to Stand (QC): 6 Chair/Eyy-cq-Dwwjv Xfer(QC): 6 Car Transfer (QC): 6 Gait Training Does the Patient Walk?: Yes Distance: 500' x 2/200' x 2 Walk 10 feet (QC): 6 Walk 50 ft with 2 Turns(QC): 6 Walk 150 ft (QC): 6 Walking 10ft/uneven surface-QC: 4 Gait Persons Needed: 1 Gait Assistive Device: FWW Wheelchair Training Does the Pt Use a Wheelchair?: No Stair Training Stair Training: Handrails/: 2 handrails #of Steps: 4 1 Step (curb) (QC): 4 4 Steps (QC): 4 (SBA; heavy reliance on B handrails; step to gait pattern) 12 Steps (QC): 88 Stairs: Pattern: Step to Balance Picking up an Object (QC): 88 ADL-Treatment Eating (QC): 6 (Pt reports feeding self and managing all containers without assist) Oral Hygiene (QC): 6 (Pt completed oral care with modified independence while standing at sink) Shower/Bathe Self (QC): 5 (Pt able to wash/dry all areas after set up while seated and using hand held shower.) Upper Body Dressing (QC): 6 (Pt retrieved clothing from closet using FWW for balance. Doff/don shirt and bra without assist) Lower Body Dressing (QC): 6 (Pt retrieved clothing from closet. Doffed/donned Depends and pants with modified independence. Stood with good balance using FWW during pant hike) On/Off Footwear (QC): 6 (Pt doffed/donned socks without assist. Pt able to don PAULY hose independently) Toileting Hygiene (QC): 6 (Pt completed toileting hygiene and clothing management without assist) Toilet Transfer (QC): 6 (Modified independent for toilet transfer using grab bars for balance and safety.) Assessment/Plan Assessment and Plan Assess & Plan/Chief Complaint Assessment: (1) Status post right knee replacement ICD Codes: Z96.651 - Presence of right artificial knee joint (2) History of DVT of lower extremity ICD Codes: Z86.718 - Personal history of other venous thrombosis and embolism (3) Anticoagulant prescribed (4) Arthritis ICD Codes: M19.90 - Unspecified osteoarthritis, unspecified site (5) Advanced age ICD Codes: R54 - Age-related physical debility (6) Atrial fib/flutter, transient (7) Breast cancer, right ICD Codes: C50.911 - Malignant neoplasm of unspecified site of right female breast Right leg edema Plan: IRF protocol Monitor hgb and add iron QOD Eliquis Pain control Elevated right leg Insomnia treatment helped (1) Status post right knee replacement (2) History of DVT of lower extremity (3) Anticoagulant prescribed (4) Arthritis (5) Advanced age (6) Atrial fib/flutter, transient (7) Breast cancer, right TONG GENTILE DO Dec 19, 2019 15:41
[2019-12-19 17:04] VITALS: BP 137/75
--- NOTE | 2019-12-19 19:07 | NUR ---
bedside report received from MARIO QURESHI, assume care of pt
[2019-12-19] MEDS: GABAPENTIN 100 MG (NEURONTIN) CAP PO SCH (20:39)
--- NOTE | 2019-12-19 20:39 | NUR ---
pt took Colace but refused miralax & Senokot
--- NOTE | 2019-12-19 21:34 | NUR ---
pt took scheduled Tylenol 1000 mg, rates pain to rt knee at 3/10 on numeric scale
--- NOTE | 2019-12-19 22:20 | NUR ---
rates pain at 2/10 on numeric scale, polar pack to rt knee
[2019-12-20 05:41] VITALS: BP 134/72
[2019-12-20] MEDS: ACETAMINOPHEN 500 MG TAB (TYLENOL) PO SCH ×3 (06:11→22:04)
--- NOTE | 2019-12-20 06:11 | NUR ---
scheduled tylenol 1000mg given rt knee pain level 4/10 on numeric scale
--- NOTE | 2019-12-20 06:45 | NUR ---
rates pain level 2/10 on numeric scale
[2019-12-20 07:18] LABS: BASOPHILS # (AUTO) 0.1 10^3/uL (0.0-0.1); BASOPHILS % (AUTO) 1 % (0-10); EOSINOPHILS # (AUTO) 0.3 10^3/uL (0.0-0.3); EOSINOPHILS % (AUTO) 4 % (0-10); HEMATOCRIT 32 % (35-52); HEMOGLOBIN 10.2 G/DL (11.5-16.0); LYMPHOCYTES # (AUTO) 1.7 X 10^3 (1.0-4.0); LYMPHOCYTES % (AUTO) 22 % (12-44); MEAN CORPUSCULAR HEMOGLOBIN 32 PG (25-34); MEAN CORPUSCULAR HGB CONC 32 G/DL (32-36); MEAN CORPUSCULAR VOLUME 100 FL (80-99); MEAN PLATELET VOLUME 9.4 FL (7.4-10.4); MONOCYTES % (AUTO) 13 % (0-12); NEUTROPHILS # (AUTO) 4.8 X 10^3 (1.8-7.8); NEUTROPHILS % (AUTO) 61 % (42-75); PLATELET COUNT 479 10^3/uL (130-400); RED CELL DISTRIBUTION WIDTH 14.3 % (10.0-14.5); WHITE BLOOD COUNT 7.9 10^3/uL (4.3-11.0)
[2019-12-20 07:38] LABS: ALANINE AMINOTRANSFERASE 11 U/L (0-55); ALBUMIN 3.3 GM/DL (3.2-4.5); ALKALINE PHOSPHATASE 61 U/L (40-136); BILIRUBIN,TOTAL 0.3 MG/DL (0.1-1.0); BUN/CREATININE RATIO 15; CALCIUM 8.8 MG/DL (8.5-10.1); CARBON DIOXIDE 26 MMOL/L (21-32); CHLORIDE 107 MMOL/L (98-107); CREATININE SERUM 0.72 MG/DL (0.60-1.30); GFR ESTIMATED > 60; GLUCOSE 85 MG/DL (70-105); POTASSIUM 4.2 MMOL/L (3.6-5.0); SODIUM 143 MMOL/L (135-145); TOTAL PROTEIN 6.3 GM/DL (6.4-8.2)
[2019-12-20] MEDS: APIXABAN 2.5 MG (ELIQUIS) TABLET PO SCH ×2 (08:17→20:44)
[2019-12-20] MEDS: polyethylene glycoL POWDER 17 GM (MIRALAX) PACK PO SCH ×2 (08:18→20:44)
[2019-12-20] MEDS: SENNA W/DOCUSATE (SENOKOT S) TABLET PO SCH ×2 (08:18→20:48)
--- NOTE | 2019-12-20 09:00 | Physical Therapy Daily Note ---
PT Daily Note-Current Subjective Pt. agrees to Rx, very motivated. Pain Location: No Pain Reported Mental Status Patient Orientation: Normal For Age Transfers SCALE: Activities may be completed with or without assistive devices. 5-Pnwtaiarqi-rudhutw completes the activity by him/herself with no assistance from a helper. 5-Set-up or Clean-up Assistance-helper sets up or cleans up; patient completes activity. [place] assists only prior to or following the activity. 4-Supervision or Touching Assistance-helper provides verbal cues and/or touching/steadying and/or contact guard assistance as patient completes ac tivity. Assistance may be provided throughout the activity or intermittently. 3-Partial/Moderate Assistance-helper does LESS THAN HALF the effort. [place] lifts, holds or supports trunk or limbs, but provides less than half the effort. 2-Substantial/Maximal Assistance-helper does MORE THAN HALF the effort. [place] lifts or holds trunk or limbs and provides more than half the effort. 9-Epozkydcp-eaxzaw does ALL the effort. Patient does none of the effort to complete the activity. Or, the assistance of 2 or more helpers is required for the patient to complete the activity. If activity was not attempted, code reason: 7-Patient Refused. 9-Not Applicable-not attempted and the patient did not perform the activity before the current illness, exacerbation or injury. 10-Not Attempted due to Environmental Limitations-(lack of equipment, weather restraints, etc.). 88-Not Attempted due to Medical Conditions or Safety Concerns. Roll Left & Right (QC): 6 Sit to Lying (QC): 6 Lying to Sitting/Side of Bed(Q: 6 Sit to Stand (QC): 6 Chair/Qlr-ds-Sskgz Xfer(QC): 6 Toilet Transfer (QC): 6 Weight Bearing Right Lower Extremity: Right Weight Bearing/Tolerated Gait Training Does the Patient Walk?: Yes Walk 10 feet (QC): 6 Walk 50 ft with 2 Turns(QC): 6 Walk 150 ft (QC): 6 Gait Persons Needed: 0 Gait Assistive Device: FWW Stair Training Stair Training: Handrails/: 2 handrails #of Steps: 4 4 Steps (QC): 5 Stairs: Pattern: Reciprocal Exercises Supine Ex: Bridging, Ankle pumps, Quad Set, Rolling, Glut sets, Heel Slides, Short Arc Quads, Scooting, Straight leg raise, Hip abd/add Supine Reps: 20 instructed pt. 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 Assembly Line Machine Operator Goals PT Assembly Line Machine Operator Goals Time Frame: Jan 04, 2020 Roll Left & Right (QC): 6 Sit to Lying (QC): 6 Lying-Sitting on Side/Bed(QC): 6 Sit to Stand (QC): 6 Chair/Zaj-je-Ooslw Xfer(QC): 6 Toilet Transfer (QC): 6 Car Transfer (QC): 6 Walk 10 feet (QC): 6 Walk 50ft with 2 Turns (QC): 6 Walk 150 ft (QC): 6 Walking 10ft on Uneven Surface: 6 PT Plan Treatment/Plan Treatment Plan: Continue Plan of Care Treatment Plan: Bed Mobility, Education, Functional Activity Radha, Functional Strength, Group Therapy, Gait, Safety, Therapeutic Exercise, Transfers Treatment Duration: Jan 04, 2020 Frequency: At least 5 of 7 days/Wk (IRF) Estimated Hrs Per Day: 1.5 hours per day Patient and/or Family Agrees t: Yes Safety Risks/Education Patient Education: Gait Training, Transfer Techniques, Steps, Correct Positioning, Disease Process, Safety Issues Teaching Recipient: Patient Teaching Methods: Demonstration, Discussion Response to Teaching: Verbalize Understanding, Return Demonstration, Reinforcement Needed Time/GCodes Time In: 800 Time Out: 900 Total Billed Treatment Time: 60 Total Billed Treatment 1,EX25m,GT15m,FA20m KARIN VÁSQUEZ PTA Dec 20, 2019 09:00
--- NOTE | 2019-12-20 10:26 | PM&R Progress Note ---
Subjective HPI/CC On Admission Date Seen by Provider: Dec 20, 2019 Time Seen by Provider: 08:45 Subjective/Events-last exam Hgb 10.2 Doing well, up adlib in room Bowels are moving okay DC planned on Friday Conferred with RN Reviewed therapy notes Checked meds and labs Review of Systems General: Fatigue Musculoskeletal: leg pain Objective Exam Vital Signs Vital Signs Date Time Temp Pulse Resp B/P (MAP) Pulse Ox O2 Delivery O2 Flow Rate FiO2 12/20/19 17:33 36.5 81 20 133/68 (89) 95 Room Air Capillary Refill : Less Than 3 SecondsLess Than 3 Seconds General Appearance: No Apparent Distress, WD/WN HEENT: PERRL/EOMI, Normal ENT Inspection, Pharynx Normal Neck: Full Range of Motion, Normal Inspection, Non Tender, Supple, Carotid Bruit Respiratory: Chest Non Tender, Lungs Clear, Normal Breath Sounds, No Accessory Muscle Use, No Respiratory Distress Cardiovascular: Regular Rate, Rhythm, No Gallop, No JVD, No Murmur, Normal Peripheral Pulses Gastrointestinal: Normal Bowel Sounds, No Organomegaly, No Pulsatile Mass, Non Tender, Soft Back: Normal Inspection, No CVA Tenderness, No Vertebral Tenderness Extremity: Normal Capillary Refill, Normal Inspection, Normal Range of Motion (except right leg post op), Non Tender, No Calf Tenderness, Pedal Edema (right leg 1+) Neurologic/Psychiatric: Alert, Oriented x3, No Motor/Sensory Deficits, Normal Mood/Affect Skin: Normal Color, Warm/Dry Lymphatic: No Adenopathy Results/Procedures Lab Laboratory Tests 12/20/19 06:00 Patient resulted labs reviewed. FIM Transfers Therapy Code Descriptions/Definitions Functional [place] Measure: 0=Not Assessed/NA 4=Minimal Assistance 1=Total Assistance 5=Supervision or Setup 2=Maximal Assistance 6=Modified [place] 3=Moderate Assistance 7=Complete IndependenceSCALE: Activities may be completed with or without assistive devices. 5-Vipkzrcqoz-psytgea completes the activity by him/herself with no assistance from a helper. 5-Set-up or Clean-up Assistance-helper sets up or cleans up; patient completes activity. [place] assists only prior to or following the activity. 4-Supervision or Touching Assistance-helper provides verbal cues and/or touching/steadying and/or contact guard assistance as patient completes activity. Assistance may be provided throughout the activity or intermittently. 3-Partial/Moderate Assistance-helper does LESS THAN HALF the effort. [place] lif ts, holds or supports trunk or limbs, but provides less than half the effort. 2-Substantial/Maximal Assistance-helper does MORE THAN HALF the effort. [place] lifts or holds trunk or limbs and provides more than half the effort. 0-Nhhhhhcza-ubgwcm does ALL the effort. Patient does none of the effort to complete the activity. Or, the assistance of 2 or more helpers is required for the patient to complete the activity. If activity was not attempted, code reason: 7-Patient Refused. 9-Not Applicable-not attempted and the patient did not perform the activity before the current illness, exacerbation or injury. 10-Not Attempted due to Environmental Limitations-(lack of equipment, weather restraints, etc.). 88-Not Attempted due to Medical Conditions or Safety Concerns. Roll Left to Right (QC): 6 Sit to Lying (QC): 6 Sit to Stand (QC): 6 Chair/Rwv-wc-Ocdgi Xfer(QC): 6 Car Transfer (QC): 6 Gait Training Does the Patient Walk?: Yes Distance: 500' x 2/200' x 2 Walk 10 feet (QC): 6 Walk 50 ft with 2 Turns(QC): 6 Walk 150 ft (QC): 6 Walking 10ft/uneven surface-QC: 4 Gait Persons Needed: 0 Gait Assistive Device: FWW Wheelchair Training Does the Pt Use a Wheelchair?: No Stair Training Stair Training: Handrails/: 2 handrails #of Steps: 4 1 Step (curb) (QC): 4 4 Steps (QC): 5 12 Steps (QC): 88 Stairs: Pattern: Reciprocal Balance Picking up an Object (QC): 88 ADL-Treatment Eating (QC): 6 (Pt reports feeding self and managing all containers without assist) Oral Hygiene (QC): 6 (Pt completed oral care with modified independence while standing at sink) Shower/Bathe Self (QC): 5 (Pt able to wash/dry all areas after set up while seated and using hand held shower.) Upper Body Dressing (QC): 6 (Pt retrieved clothing from closet using FWW for balance. Doff/don shirt and bra without assist) Lower Body Dressing (QC): 6 (Pt retrieved clothing from closet. Doffed/donned Depends and pants with modified independence. Stood with good balance using FWW during pant hike) On/Off Footwear (QC): 6 (Pt doffed/donned socks without assist. Pt able to don PAULY hose independently) Toileting Hygiene (QC): 6 (Pt completed toileting hygiene and clothing management without assist) Toilet Transfer (QC): 6 (Modified independent for toilet transfer using grab bars for balance and safety.) Assessment/Plan Assessment and Plan Assess & Plan/Chief Complaint Assessment: (1) Status post right knee replacement ICD Codes: Z96.651 - Presence of right artificial knee joint (2) History of DVT of lower extremity ICD Codes: Z86.718 - Personal history of other venous thrombosis and embolism (3) Anticoagulant prescribed (4) Arthritis ICD Codes: M19.90 - Unspecified osteoarthritis, unspecified site (5) Advanced age ICD Codes: R54 - Age-related physical debility (6) Atrial fib/flutter, transient (7) Breast cancer, right ICD Codes: C50.911 - Malignant neoplasm of unspecified site of right female breast Right leg edema Plan: IRF protocol Monitor hgb and add iron QOD Eliquis Pain control Elevated right leg Insomnia treatment helped (1) Status post right knee replacement (2) History of DVT of lower extremity (3) Anticoagulant prescribed (4) Arthritis (5) Advanced age (6) Atrial fib/flutter, transient (7) Breast cancer, right TONG GENTILE DO Dec 20, 2019 10:26
--- NOTE | 2019-12-20 10:42 | Occupational Ther Daily Note ---
OT Current Status-Daily Note Subjective Pt sitting upright in recliner, agreeable to OT tx with focus on ADLs. She rates her pain between 2-3/10 post shower. Pain Numeric Pain Scale: 3 Location: Right Location Body Site: Knee ADL-Treatment Therapy Code Descriptions/Definitions Functional Pope Measure: 0=Not Assessed/NA 4=Minimal Assistance 1=Total Assistance 5=Supervision or Setup 2=Maximal Assistance 6=Modified [place] 3=Moderate Assistance 7=Complete IndependenceSCALE: Activities may be completed with or without assistive devices. 5-Oppterbedk-mabriwl completes the activity by him/herself with no assistance from a helper. 5-Set-up or Clean-up Assistance-helper sets up or cleans up; patient completes activity. [place] assists only prior to or following the activity. 4-Supervision or Touching Assistance-helper provides verbal cues and/or touching/steadying and/or contact guard assistance as patient completes activity. Assistance may be provided throughout the activity or intermittently. 3-Partial/Moderate Assistance-helper does LESS THAN HALF the effort. [place]en lifts, holds or supports trunk or limbs, but provides less than half the effort. 2-Substantial/Maximal Assistance-helper does MORE THAN HALF the effort. [place]en lifts or holds trunk or limbs and provides more than half the effort. 9-Wxqutaxae-ppagnc does ALL the effort. Patient does none of the effort to complete the activity. Or, the assistance of 2 or more helpers is required for the patient to complete the activity. If activity was not attempted, code reason: 7-Patient Refused. 9-Not Applicable-not attempted and the patient did not perform the activity before the current illness, exacerbation or injury. 10-Not Attempted due to Environmental Limitations-(lack of equipment, weather restraints, etc.). 88-Not Attempted due to Medical Conditions or Safety Concerns. Eating (QC): 6 (per pt report, she had no difficulty eating breakfast. ) Oral Hygiene (QC): 6 (standing at sink) Shower/Bathe Self (QC): 5 (set up/clean up assist. Pt washed all parts seated on SC.) Upper Body Dressing (QC): 6 (Pt gathered clothes from closet and returned dirty clothes to closet. Pt donned/doffed pullover shirt and bra) Lower Body Dressing (QC): 6 (Pt gathered clothes from closet and returned dirty clothes to closet. Pt donned/doffed briefs/pants) On/Off Footwear: 6 (Pt gathered clothes from closet and returned dirty clothes to closet. Pt donned/doffed socks and tedhose) Toileting Hygiene (QC): 6 Toilet Transfer (QC): 6 (BSC over toilet) pt required increased time with all ADLs. She took rest breaks as needed due to decreased activity tolerance. Other Treatment Pt completed ADL session in her room. She then ambulated to therapy gym using FWW where she completed x15 min on arm bike in order to increase BUE strength and endurance. Pt took rest breaks as needed during task. She returned to her room. completed toileting, then sat in recliner. Post OT session, pt seated upright in recliner, call light in reach and all needs met, polar pack on. Education OT Patient Education: Correct positioning, Energy conservation, Exercise program, Modified ADL techniques, Progress toward Goal/Update tx plan, Purpose of tx/functional activities Teaching Recipient: Patient Teaching Methods: Discussion Response to Teaching: Verbalize Understanding OT Care Home Goals Municipal Firefighter Goals Time Frame: Dec 28, 2019 Eating (QC): 6 Oral Hygiene (QC): 6 Toileting Hygiene (QC): 6 Shower/Bathe Self (QC): 6 Upper Body Dressing (QC): 6 Lower Body Dressing (QC): 6 On/Off Footwear (QC): 6 Additional Goals: 1-Demonstrate ADL Tasks, 2-Verbalize Understanding, 3- ImproveStrength/Radha 1=Demonstrate adherence to instructed precautions during ADL tasks. 2=Patient will verbalize/demonstrate understanding of assistive devices/modifications for ADL. 3=Patient will improve strength/tolerance for activity to enable patient to perform ADL's. OT Education/Plan Problem List/Assessment Assessment: Decreased Activ Tolerance Discharge Recommendations Plan/Recommendations: Continue POC Treatment Plan/Plan of Care Patient would benefit from OT for education, treatment and training to promote independence in ADL's, mobility, safety and/or upper extremity function for ADL's. Plan of Care: ADL Retraining, Functional Mobility, Group Exercise/Act as Ind, UE Funct Exercise/Act Treatment Duration: Dec 28, 2019 Frequency: At least 5 of 7 days/Wk (IRF) Estimated Hrs Per Day: 1.5 hours per day Rehab Potential: Fair Time/GCodes Start Time: 09:30 Stop Time: 11:00 Total Time Billed (hr/min): 90 Billed Treatment Time 1, ADL 4(65'), EX 2 (25') PATRICIA FLORES OT Dec 20, 2019 10:42
--- NOTE | 2019-12-20 13:16 | Physical Therapy Daily Note ---
PT Daily Note-Current Subjective Agrees to Rx, inquires as to how long she should use polar pack and what exercises she can do at home for knee flexion Pain Location: No Pain Reported Mental Status Patient Orientation: Normal For Age Transfers SCALE: Activities may be completed with or without assistive devices. 5-Ywyrhvbpyy-expduxv completes the activity by him/herself with no assistance from a helper. 5-Set-up or Clean-up Assistance-helper sets up or cleans up; patient completes activity. Hector assists only prior to or following the activity. 4-Supervision or Touching Assistance-helper provides verbal cues and/or touching/steadying and/or contact guard assistance as patient completes activity. Assistance may be provided throughout the activity or intermittently. 3-Partial/Moderate Assistance-helper does LESS THAN HALF the effort. Hector lifts, holds or supports trunk or limbs, but provides less than half the effort. 2-Substantial/Maximal Assistance-helper does MORE THAN HALF the effort. [place]ector lifts or holds trunk or limbs and provides more than half the effort. 4-Cwrjkvgij-ruhiwq does ALL the effort. Patient does none of the effort to complete the activity. Or, the assistance of 2 or more helpers is required for the patient to complete the activity. If activity was not attempted, code reason: 7-Patient Refused. 9-Not Applicable-not attempted and the patient did not perform the activity before the current illness, exacerbation or injury. 10-Not Attempted due to Environmental Limitations-(lack of equipment, weather restraints, etc.). 88-Not Attempted due to Medical Conditions or Safety Concerns. all sit to stand chair and toilet mod I with use of UEs on arms of chair for leverage Weight Bearing Right Lower Extremity: Right Weight Bearing/Tolerated Gait Training Does the Patient Walk?: Yes Gait Assistive Device: FWW [id number], SBA no LOB Exercises Seated Therapy Exercises: Ankle pumps, Sit to stand, Long arc quads (with ankle pumps 10x2), Hip flexion Seated Reps: 15 instructed in seated knee flexion in chair, right foot staying in one spot, scooting hips forward for stretch held x 5-10 sec x 10 reps with noted increased flexion for approx 92deg after Treatments toileted indep Assessment Current Status: Good Progress PT Short Term Goals Short Term Goals Time Frame: Dec 21, 2019 Roll Left & Right: 6 Sit to lyin Lying to sitting on side of be: 4 Sit to stand: 4 (met) Chair/obt-qe-bwrvz transfer: 4 (met) Walk 10 feet: 4 (met) Walk 50 feet with two turns: 4 (met) Walk 150 feet: 4 PT Half-Way Goals Half-Way Goals PT Half-Way Goals Time Frame: Jan 04, 2020 Roll Left & Right (QC): 6 Sit to Lying (QC): 6 Lying-Sitting on Side/Bed(QC): 6 Sit to Stand (QC): 6 Chair/Lnb-fn-Emvjn Xfer(QC): 6 Toilet Transfer (QC): 6 Car Transfer (QC): 6 Walk 10 feet (QC): 6 Walk 50ft with 2 Turns (QC): 6 Walk 150 ft (QC): 6 Walking 10ft on Uneven Surface: 6 PT Plan Treatment/Plan Treatment Plan: Continue Plan of Care Treatment Plan: Bed Mobility, Education, Functional Activity Radha, Functional Strength, Group Therapy, Gait, Safety, Therapeutic Exercise, Transfers Treatment Duration: Jan 04, 2020 Frequency: At least 5 of 7 days/Wk (IRF) Estimated Hrs Per Day: 1.5 hours per day Patient and/or Family Agrees t: Yes Safety Risks/Education Patient Education: Gait Training, Transfer Techniques, Correct Positioning, Disease Process, Safety Issues Teaching Recipient: Patient Teaching Methods: Demonstration, Discussion Response to Teaching: Verbalize Understanding, Return Demonstration knee flexion exercises in sitting etc as described above Time/GCodes Time In: 1245 Time Out: 1315 Total Billed Treatment Time: 30 Total Billed Treatment 1,GT15m,EX15m KARIN VÁSQUEZ PTA Dec 20, 2019 13:16
[2019-12-20] MEDS: CALCIUM CARB + VIT D 600 MG (CALCARB + D) TAB PO SCH (13:50)
[2019-12-20 17:33] VITALS: BP 133/68
--- NOTE | 2019-12-20 18:58 | NUR ---
bedside report received from STEFFI QURESHI, assume care of pt
[2019-12-20] MEDS: GABAPENTIN 100 MG (NEURONTIN) CAP PO SCH (20:44)
--- NOTE | 2019-12-20 20:44 | NUR ---
pt took miralax but refused Senokot, up in the chair, up to bathroom with stand by assist & walker
--- NOTE | 2019-12-20 22:04 | NUR ---
scheduled Tylenol 1000mg given, pain level 2/10 on numeric scale
--- NOTE | 2019-12-20 22:50 | NUR ---
resting quietly in bed, pain level 0/10 on CNPI scale
[2019-12-21 05:03] VITALS: BP 121/58
[2019-12-21] MEDS: ACETAMINOPHEN 500 MG TAB (TYLENOL) PO SCH ×3 (06:21→21:51)
--- NOTE | 2019-12-21 06:21 | NUR ---
scheduled Tylenol 1000mg given for pain level 2/10 on numeric scale
--- NOTE | 2019-12-21 06:56 | NUR ---
rates pain level 1/10 on numeric scale
--- NOTE | 2019-12-21 08:44 | PM&R Progress Note ---
Subjective HPI/CC On Admission Date Seen by Provider: Dec 21, 2019 Time Seen by Provider: 08:45 Subjective/Events-last exam Discharge is planned for tomorrow Overall feels really good Bowels are moving Pain is very well controlled Talked about how long Eliquis will be maintained at 2.5 BID for DVT prophylaxis because she is high risk and has a history of blood clots when she had spine surgery in 2017. Conferred with RN Reviewed therapy notes Checked meds and labs Review of Systems Musculoskeletal: leg pain Objective Exam Vital Signs Vital Signs Date Time Temp Pulse Resp B/P (MAP) Pulse Ox O2 Delivery O2 Flow Rate FiO2 12/21/19 18:28 Room Air 12/21/19 15:29 37.2 82 20 133/73 (93) 97 Capillary Refill : Less Than 3 SecondsLess Than 3 Seconds General Appearance: No Apparent Distress, WD/WN HEENT: PERRL/EOMI, Normal ENT Inspection, Pharynx Normal Neck: Full Range of Motion, Normal Inspection, Non Tender, Supple, Carotid Bruit Respiratory: Chest Non Tender, Lungs Clear, Normal Breath Sounds, No Accessory Muscle Use, No Respiratory Distress Cardiovascular: Regular Rate, Rhythm, No Gallop, No JVD, No Murmur, Normal Peripheral Pulses Gastrointestinal: Normal Bowel Sounds, No Organomegaly, No Pulsatile Mass, Non Tender, Soft Back: Normal Inspection, No CVA Tenderness, No Vertebral Tenderness Extremity: Normal Capillary Refill, Normal Inspection, Normal Range of Motion (except right leg post op), Non Tender, No Calf Tenderness, Pedal Edema (right leg 1+) Neurologic/Psychiatric: Alert, Oriented x3, No Motor/Sensory Deficits, Normal Mood/Affect Skin: Normal Color, Warm/Dry Lymphatic: No Adenopathy Results/Procedures Lab Patient resulted labs reviewed. FIM Transfers Therapy Code Descriptions/Definitions Functional [place] Measure: 0=Not Assessed/NA 4=Minimal Assistance 1=Total Assistance 5=Supervision or Setup 2=Maximal Assistance 6=Modified [place] 3=Moderate Assistance 7=Complete IndependenceSCALE: Activities may be completed with or without assistive devices. 1-Egeuzntdzq-fbympvl completes the activity by him/herself with no assistance from a helper. 5-Set-up or Clean-up Assistance-helper sets up or cleans up; patient completes activity. [place] assists only prior to or following the activity. 4-Supervision or Touching Assistance-helper provides verbal cues and/or touching/steadying and/or contact guard assistance as patient completes activity. Assistance may be provided throughout the activity or intermittently. 3-Partial/Moderate Assistance-helper does LESS THAN HALF the effort. [place] lifts, holds or supports trunk or limbs, but provides less than half the effort. 2-Substantial/Maximal Assistance-helper does MORE THAN HALF the effort. [place] lifts or holds trunk or limbs and provides more than half the effort. 0-Wfaouuzqv-xmvdfh does ALL the effort. Patient does none of the effort to co mplete the activity. Or, the assistance of 2 or more helpers is required for the patient to complete the activity. If activity was not attempted, code reason: 7-Patient Refused. 9-Not Applicable-not attempted and the patient did not perform the activity before the current illness, exacerbation or injury. 10-Not Attempted due to Environmental Limitations-(lack of equipment, weather restraints, etc.). 88-Not Attempted due to Medical Conditions or Safety Concerns. Roll Left to Right (QC): 6 Sit to Lying (QC): 6 Sit to Stand (QC): 6 Chair/Fvj-id-Mkcgl Xfer(QC): 6 Car Transfer (QC): 6 Gait Training Does the Patient Walk?: Yes Distance: 500' x 2/200' x 2 Walk 10 feet (QC): 6 Walk 50 ft with 2 Turns(QC): 6 Walk 150 ft (QC): 6 Walking 10ft/uneven surface-QC: 4 Gait Persons Needed: 0 Gait Assistive Device: FWW Wheelchair Training Does the Pt Use a Wheelchair?: No Stair Training Stair Training: Handrails/: 2 handrails #of Steps: 4 1 Step (curb) (QC): 4 4 Steps (QC): 5 12 Steps (QC): 88 Stairs: Pattern: Reciprocal Balance Picking up an Object (QC): 88 ADL-Treatment Eating (QC): 6 (per pt report, she had no difficulty eating breakfast. ) Oral Hygiene (QC): 6 (standing at sink) Shower/Bathe Self (QC): 5 (set up/clean up assist. Pt washed all parts seated on SC.) Upper Body Dressing (QC): 6 (Pt gathered clothes from closet and returned dirty clothes to closet. Pt donned/doffed pullover shirt and bra) Lower Body Dressing (QC): 6 (Pt gathered clothes from closet and returned dirty clothes to closet. Pt donned/doffed briefs/pants) On/Off Footwear (QC): 6 (Pt gathered clothes from closet and returned dirty clothes to closet. Pt donned/doffed socks and tedhose) Toileting Hygiene (QC): 6 Toilet Transfer (QC): 6 (BSC over toilet) Assessment/Plan Assessment and Plan Assess & Plan/Chief Complaint Assessment: (1) Status post right knee replacement ICD Codes: Z96.651 - Presence of right artificial knee joint (2) History of DVT of lower extremity ICD Codes: Z86.718 - Personal history of other venous thrombosis and embolism (3) Anticoagulant prescribed (4) Arthritis ICD Codes: M19.90 - Unspecified osteoarthritis, unspecified site (5) Advanced age ICD Codes: R54 - Age-related physical debility (6) Atrial fib/flutter, transient (7) Breast cancer, right ICD Codes: C50.911 - Malignant neoplasm of unspecified site of right female breast Right leg edema Plan: IRF protocol Monitor hgb and add iron QOD Eliquis Pain control Elevated right leg Insomnia treatment helped DC Wed (1) Status post right knee replacement (2) History of DVT of lower extremity (3) Anticoagulant prescribed (4) Arthritis (5) Advanced age (6) Atrial fib/flutter, transient (7) Breast cancer, right TONG GENTILE DO Dec 21, 2019 08:44
[2019-12-21] MEDS: polyethylene glycoL POWDER 17 GM (MIRALAX) PACK PO SCH ×2 (08:50→20:56)
[2019-12-21] MEDS: APIXABAN 2.5 MG (ELIQUIS) TABLET PO SCH ×2 (08:50→20:54)
[2019-12-21] MEDS: SENNA W/DOCUSATE (SENOKOT S) TABLET PO SCH ×2 (08:50→20:56)
--- NOTE | 2019-12-21 09:00 | NUR ---
MESSAGE LEFT WITH DR. REYES'S NURSE ABOUT KNEE DRESSING - IF IT IS TO BE LEFT ON UNTIL F/U APPOINTMENT ON JANUARY 03. ALSO, PATIENT STATES SCHEDULED TYLENOL HELPS KNEE PAIN, BUT NOT ARTHRITIS PAIN. HAS BEEN OFF ALEVE SINCE ELIQUIS STARTED AFTER SURGERY. WILL CHECK WITH OFFICE NURSE ABOUT LENGTH OF TIME FOR ELIQUIS ALSO.
--- NOTE | 2019-12-21 09:43 | Occupational Ther Daily Note ---
OT Current Status-Daily Note Subjective Pt sitting upright in recliner at start of session, agreeable to OT tx. She did not verbalize pain rating during session. Mental Status/Objective Patient Orientation: Normal For Age ADL-Treatment Therapy Code Descriptions/Definitions Functional [place] Measure: 0=Not Assessed/NA 4=Minimal Assistance 1=Total Assistance 5=Supervision or Setup 2=Maximal Assistance 6=Modified [place] 3=Moderate Assistance 7=Complete IndependenceSCALE: Activities may be completed with or without assistive devices. 7-Dmryitprkc-elzqlkq completes the activity by him/herself with no assistance from a helper. 5-Set-up or Clean-up Assistance-helper sets up or cleans up; patient completes activity. [place] assists only prior to or following the activity. 4-Supervision or Touching Assistance-helper provides verbal cues and/or touching/steadying and/or contact guard assistance as patient completes activity. Assistance may be provided throughout the activity or intermittently. 3-Partial/Moderate Assistance-helper does LESS THAN HALF the effort. [place] li fts, holds or supports trunk or limbs, but provides less than half the effort. 2-Substantial/Maximal Assistance-helper does MORE THAN HALF the effort. [place] lifts or holds trunk or limbs and provides more than half the effort. 3-Syiljonmy-lojfjn does ALL the effort. Patient does none of the effort to complete the activity. Or, the assistance of 2 or more helpers is required for the patient to complete the activity. If activity was not attempted, code reason: 7-Patient Refused. 9-Not Applicable-not attempted and the patient did not perform the activity before the current illness, exacerbation or injury. 10-Not Attempted due to Environmental Limitations-(lack of equipment, weather restraints, etc.). 88-Not Attempted due to Medical Conditions or Safety Concerns. Upper Body Dressing (QC): 6 (Pt gathered clothes from closet, doffed/donned overhead shirt.) Lower Body Dressing (QC): 6 (Pt gathered clothes from closet, donned/doffed pants.) On/Off Footwear: 6 (Pt doffed socks, then donned TEDhose and socks.) Toileting Hygiene (QC): 6 Toilet Transfer (QC): 6 (BSC over toilet) Other Treatment Pt seated in recliner, gathered ADL supplies, then participated in ADL session seated in chair in the bathroom. She then put away dirty clothes in her closet and sat in recliner. Pt took a rest break before going to the therapy gym. OT educated pt on no slip surfaces including shelf liner and dycem for her to use at home underneath her recliner to prevent it from moving during transfers and to increase safety. Pt given strip of dycem to take home, pt verbalized understanding. In order to increase functional endurance and UE strength, pt performed x10 mins on arm bike, min resistance with one rest break half-way. Pt stated she felt like this task was easier today. Pt returned to her room to her recliner. Post OT session, pt sitting upright in recliner, call light in reach and all needs met. Education OT Patient Education: Correct positioning, Energy conservation, Exercise program, Modified ADL techniques, Progress toward Goal/Update tx plan, Purpose of tx/functional activities Teaching Recipient: Patient Teaching Methods: Discussion Response to Teaching: Verbalize Understanding OT Halfway Goals Radio Time Salesperson Goals Time Frame: Dec 28, 2019 Eating (QC): 6 (met) Oral Hygiene (QC): 6 (met) Toileting Hygiene (QC): 6 (met) Shower/Bathe Self (QC): 6 (not met, set up assist) Upper Body Dressing (QC): 6 (met) Lower Body Dressing (QC): 6 (met) On/Off Footwear (QC): 6 (met) Additional Goals: 1-Demonstrate ADL Tasks, 2-Verbalize Understanding, 3- ImproveStrength/Radha 1=Demonstrate adherence to instructed precautions during ADL tasks. 2=Patient will verbalize/demonstrate understanding of assistive devices/modifications for ADL. 3=Patient will improve strength/tolerance for activity to enable patient to perform ADL's. OT Education/Plan Problem List/Assessment Assessment: Decreased Activ Tolerance, Decreased UE Strength, Impaired I ADL's Discharge Recommendations Plan/Recommendations: Continue POC Treatment Plan/Plan of Care Patient would benefit from OT for education, treatment and training to promote independence in ADL's, mobility, safety and/or upper extremity function for ADL's. Plan of Care: ADL Retraining, Functional Mobility, Group Exercise/Act as Ind, UE Funct Exercise/Act Treatment Duration: Dec 28, 2019 Frequency: At least 5 of 7 days/Wk (IRF) Estimated Hrs Per Day: 1.5 hours per day Rehab Potential: Fair Time/GCodes Start Time: 08:00 Stop Time: 09:30 Total Time Billed (hr/min): 90 Billed Treatment Time 1, ADL 5 (75'), EX (15') PATRICIA FLORES OT Dec 21, 2019 09:43
[2019-12-21] MEDS: FERROUS SULF 325 MG (IRON) TAB PO SCH (11:19)
[2019-12-21] MEDS: CALCIUM CARB + VIT D 600 MG (CALCARB + D) TAB PO SCH (11:19)
--- NOTE | 2019-12-21 11:39 | Physical Therapy Daily Note ---
PT Daily Note-Current Subjective Pt sitting in recliner upon arrival. Pt agrees to PT for QC scoring for D/C tomorrow (12/21). Pain Location: No Pain Reported Mental Status Patient Orientation: Person, Place, Time Transfers SCALE: Activities may be completed with or without assistive devices. 9-Ssuhicypzg-jtgshvv completes the activity by him/herself with no assistance from a helper. 5-Set-up or Clean-up Assistance-helper sets up or cleans up; patient completes activity. [place] assists only prior to or following the activity. 4-Supervision or Touching Assistance-helper provides verbal cues and/or touching/steadying and/or contact guard assistance as patient completes activity. Assistance may be provided throughout the activity or intermittently. 3-Partial/Moderate Assistance-helper does LESS THAN HALF the effort. [place] lifts, holds or supports trunk or limbs, but provides less than half the effort. 2-Substantial/Maximal Assistance-helper does MORE THAN HALF the effort. [place] lifts or holds trunk or limbs and provides more than half the effort. 6-Zvbevjuzq-nweian does ALL the effort. Patient does none of the effort to complete the activity. Or, the assistance of 2 or more helpers is required for the patient to complete the activity. If activity was not attempted, code reason: 7-Patient Refused. 9-Not Applicable-not attempted and the patient did not perform the activity before the current illness, exacerbation or injury. 10-Not Attempted due to Environmental Limitations-(lack of equipment, weather restraints, etc.). 88-Not Attempted due to Medical Conditions or Safety Concerns. Roll Left & Right (QC): 6 Sit to Lying (QC): 6 Lying to Sitting/Side of Bed(Q: 6 Sit to Stand (QC): 6 Chair/Xxw-dx-Uklav Xfer(QC): 6 Toilet Transfer (QC): 6 Car Transfer (QC): 6 Weight Bearing Right Lower Extremity: Right Weight Bearing/Tolerated Gait Training Does the Patient Walk?: Yes Distance: 150'x2 Walk 10 feet (QC): 6 Walk 50 ft with 2 Turns(QC): 6 Walk 150 ft (QC): 6 Walking 10ft/uneven surface-QC: 6 Gait Persons Needed: 1 Gait Assistive Device: FWW Wheelchair Training Does the Pt Use a Wheelchair?: No Stair Training Stair Training: Handrails/: 2 handrails #of Steps: 4 1 Step (curb) (QC): 6 4 Steps (QC): 6 12 Steps (QC): 9 Stairs: Pattern: Step to Balance Picking up an Object (QC): 9 Special Test Comments 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 Exercises Supine Ex: Ankle pumps, Quad Set, Glut sets, Heel Slides, Short Arc Quads, Straight leg raise, Hip abd/add Supine Reps: 20 Seated Therapy Exercises: Ankle pumps, Long arc quads, Hip flexion, Kicking activity, Hip abd/add, Glut set Seated Reps: 15 Treatments Pt completes QC scoring items listed above. Pt uses restroom before leaving room for Rx. Pt reviews Supine & Seated EX with LITHOSTRIPPER & LITHOSTRIPPER gives written Seated HEP (pt has Supine from Surgeon). Pt ambulates before returning to recliner to rest. LITHOSTRIPPER reviews Polar Pack and how to use ice. PT asks questions including how she can sleep, continued EX at home and removal of sutures (Nurse has placed call to Dr office & awaiting call back). Pt resting in recliner with all needs met, call light in hand. Assessment Current Status: Good Progress Pt tolerated Rx well and demonstrates comprehension of education/questions LITHOSTRIPPER discussed during Rx. PT Short Term Goals Short Term Goals Time Frame: Dec 21, 2019 Roll Left & Right: 6 Sit to lyin Lying to sitting on side of be: 4 Sit to stand: 4 (met) Chair/hta-pj-azckz transfer: 4 (met) Walk 10 feet: 4 (met) Walk 50 feet with two turns: 4 (met) Walk 150 feet: 4 PT Longterm Goals Longterm Goals PT Longterm Goals Time Frame: Jan 04, 2020 Roll Left & Right (QC): 6 Sit to Lying (QC): 6 Lying-Sitting on Side/Bed(QC): 6 Sit to Stand (QC): 6 Chair/Svf-eu-Aagro Xfer(QC): 6 Toilet Transfer (QC): 6 Car Transfer (QC): 6 Walk 10 feet (QC): 6 Walk 50ft with 2 Turns (QC): 6 Walk 150 ft (QC): 6 Walking 10ft on Uneven Surface: 6 PT Plan Problem List Problem List: Activity Tolerance, Functional Strength Treatment/Plan Treatment Plan: Continue Plan of Care Treatment Plan: Bed Mobility, Education, Functional Activity Radha, Functional Strength, Group Therapy, Gait, Safety, Therapeutic Exercise, Transfers Treatment Duration: Jan 04, 2020 Frequency: At least 5 of 7 days/Wk (IRF) Estimated Hrs Per Day: 1.5 hours per day Patient and/or Family Agrees t: Yes Safety Risks/Education Patient Education: Gait Training, Transfer Techniques, Steps, Issued Written HEP, Reviewed Precautions, Reviewed Use of Ice, Correct Positioning, Safety Issues Teaching Recipient: Patient Teaching Methods: Discussion Response to Teaching: Verbalize Understanding Time/GCodes Time In: 1000 Time Out: 1130 Total Billed Treatment Time: 90 Total Billed Treatment 1, FA x2 (30m), EX x2 (30m) & GT x2 (30m) MAURI YOUNG LITHOSTRIPPER Dec 21, 2019 11:38
--- NOTE | 2019-12-21 11:58 | NUR ---
provided prayer, Communion.
--- NOTE | 2019-12-21 14:03 | NUR ---
"RD ASSESSMENT PMHx: DVT; osteoporosis; CA(breast) PT INTERACTION: Pt was awake and pleasant during nutrition follow-up. Pt states she has been eating fine since last assessment. Note avg PO intake of 84% x3d, per chart review. Pt states no issues with n/v/c/d since last assessment. Note last BM was 12/19 and pt currently on bowel regimen of senna BID; and miralax BID, per chart review. ABNORMAL NUTRITION-RELATED LAB VALUES LOW: Pro 6.3 HIGH: Est. kcal needs: 6253-9306 kcal | 20-25 kcal/kg Est. Pro needs: 68-85 g Pro | 0.8-1.0 g Pro/kg PES STATEMENT: Given pt PO intake, no nutrition diagnosis at this time (NO-1.1) INTERVENTION: Continue with current diet order of Regular diet. Will continue to follow and reassess as pt needs, intake, and status change. MONITOR/EVALUATE: PO Intake; Plan of Care; Hydration Status; Weight Status; Lab Values Lizeth Escobar, MS, RD, LD"
[2019-12-21 15:29] VITALS: BP 133/73
--- NOTE | 2019-12-21 18:10 | NUR ---
DR. REYES'S OFFICE NURSE RETURNED CALL. ORDER TO REMOVE SILVER DRESSING AND APPLY ISLAND DRESSING. IF HOME HEALTH NURSE IS TO SEE PATIENT, CHANGE ISLAND DRESSING IN ONE WEEK. IF NO HOME HEALTH NURSE, LEAVE CURRENT ISLAND DRESSING ON UNTIL APPOINTMENT WITH DR. REYES ON JANUARY 03. PATIENT ALSO TO REMAIN ON ELIQUIS UNTIL SEEN BY DR. REYES.
--- NOTE | 2019-12-21 19:00 | NUR ---
WHEN SILVER DRESSING REMOVED, NOTED SMALL GAPS IN RIGHT KNEE INCISION. STERI STRIPS APPLIED AND THEN ISLAND DRESSING.
--- NOTE | 2019-12-21 19:16 | NUR ---
bedside report received from RINA QURESHI, assume care of pt
[2019-12-21] MEDS ORDERED: APIX2.5T PO (20:33)
[2019-12-21] MEDS ORDERED: ACET-93 PO (20:33)
[2019-12-21] MEDS ORDERED: FERR325T18 PO (20:33)
[2019-12-21] MEDS ORDERED: GABA-486 PO (20:33)
[2019-12-21] MEDS ORDERED: CYCL10TA9 PO (20:33)
[2019-12-21] MEDS: GABAPENTIN 100 MG (NEURONTIN) CAP PO SCH (20:54)
[2019-12-21] MEDS: DOCUSATE SODIUM 100 MG (COLACE) CAP PO PRN (20:54)
--- NOTE | 2019-12-21 20:54 | NUR ---
pt took Colace but refused miralax & Senokot
--- NOTE | 2019-12-21 21:51 | NUR ---
scheduled Tylenol 1000mg given, rates pain level 2/10 on numeric scale
--- NOTE | 2019-12-21 22:37 | NUR ---
resting quietly in bed, pain level 0/10 on CNPI scale
[2019-12-22 05:40] VITALS: BP 135/78
[2019-12-22] MEDS: ACETAMINOPHEN 500 MG TAB (TYLENOL) PO SCH (06:37)
[2019-12-22] MEDS: polyethylene glycoL POWDER 17 GM (MIRALAX) PACK PO SCH (08:04)
[2019-12-22] MEDS: SENNA W/DOCUSATE (SENOKOT S) TABLET PO SCH (08:05)
[2019-12-22] MEDS: APIXABAN 2.5 MG (ELIQUIS) TABLET PO SCH (08:07)
--- NOTE | 2019-12-22 08:40 | Discharge Summary ---
Diagnosis/Chief Complaint Date of Admission Dec 13, 2019 at 16:19 Date of Discharge Discharge Date: Dec 22, 2019 Discharge Diagnosis (1) Status post right knee replacement ICD Codes: Z96.651 - Presence of right artificial knee joint (2) History of DVT of lower extremity ICD Codes: Z86.718 - Personal history of other venous thrombosis and embolism (3) Anticoagulant prescribed (4) Arthritis ICD Codes: M19.90 - Unspecified osteoarthritis, unspecified site (5) Advanced age ICD Codes: R54 - Age-related physical debility (6) Atrial fib/flutter, transient (7) Breast cancer, right ICD Codes: C50.911 - Malignant neoplasm of unspecified site of right female breast Right leg edema Plan: IRF protocol Monitor hgb and add iron QOD Eliquis Pain control Elevated right leg Insomnia treatment helped (1) Status post right knee replacement (2) History of DVT of lower extremity (3) Anticoagulant prescribed (4) Arthritis (5) Advanced age (6) Atrial fib/flutter, transient (7) Breast cancer, right Discharge Summary Discharge Physical Examination Allergies: Coded Allergies: tramadol (Verified Allergy, Intermediate, 12/13/19) Psychosis codeine (Verified Allergy, Mild, CODIENE, 12/10/18) Sulfa (Sulfonamide Antibiotics) (Verified Adverse Reaction, Mild, N/V, 12/14/18) meperidine (Verified Adverse Reaction, Mild, GI UPSET, 12/14/18) Vitals & I&Os Vital Signs Date Time Temp Pulse Resp B/P (MAP) Pulse Ox O2 Delivery O2 Flow Rate FiO2 12/22/19 11:30 12/22/19 08:10 Room Air 12/22/19 05:40 36.7 83 16 96 General Appearance: Alert, Oriented X3, Cooperative Respiratory: Clear to Auscultation Cardiovascular: Regular Rate Neuro: Normal Gait, Normal Speech, Strength at 5/5 X4 Ext Psych/Mental Status: Mental Status NL Hospital Course Was the Problem List Reviewed?: Yes Hospital Course: Pt had an uneventful nine day hospital course after she had a right total knee replacement by orthopedic surgery at the [facility]. Pt was maintained on Eliquis for DVT prophylaxis since she had had a DVT after back surgery two years ago. PT overall remained stable, bowels regained normal function and pain was well controlled with TYlenol and Flexeril. Pt was deemed stable for discharge with home health and those orders were written and she will have scheduled follow up with orthopedics and Dr. Napier. Labs (last 24 hrs) Laboratory Tests 12/14/19 05:25: White Blood Count 8.4, Red Blood Count 3.16L, Hemoglobin 10.3L, Hematocrit 31L, Mean Corpuscular Volume 98, Mean Corpuscular Hemoglobin 33, Mean Corpuscular Hemoglobin Concent 33, Red Cell Distribution Width 14.2, Platelet Count 280, Mean Platelet Volume 10.4, Neutrophils (%) (Auto) 65, Lymphocytes (%) (Auto) 17, Monocytes (%) (Auto) 14H, Eosinophils (%) (Auto) 3, Basophils (%) (Auto) 0, Neutrophils # (Auto) 5.5, Lymphocytes # (Auto) 1.4, Monocytes # (Auto) 1.2H, Eosinophils # (Auto) 0.3, Basophils # (Auto) 0.0, Sodium Level 143, Potassium Level 3.8, Chloride Level 110H, Carbon Dioxide Level 24, Anion Gap 9, Blood Urea Nitrogen 13, Creatinine 0.69, Estimat Glomerular Filtration Rate > 60, BUN/Creatinine Ratio 19, Glucose Level 94, Calcium Level 8.5, Corrected Calcium 9.1, Iron Level 23L, Total Bilirubin 0.6, Aspartate Amino Transf (AST/SGOT) 23, Alanine Aminotransferase (ALT/SGPT) 13, Alkaline Phosphatase 63, Total Protein 6.4, Albumin 3.2 12/20/19 06:00: White Blood Count 7.9, Red Blood Count 3.17L, Hemoglobin 10.2L, Hematocrit 32L, Mean Corpuscular Volume 100H, Mean Corpuscular Hemoglobin 32, Mean Corpuscular Hemoglobin Concent 32, Red Cell Distribution Width 14.3, Platelet Count 479H, Mean Platelet Volume 9.4, Neutrophils (%) (Auto) 61, Lymphocytes (%) (Auto) 22, Monocytes (%) (Auto) 13H, Eosinophils (%) (Auto) 4, Basophils (%) (Auto) 1, Neutrophils # (Auto) 4.8, Lymphocytes # (Auto) 1.7, Monocytes # (Auto) 1.0, Eosinophils # (Auto) 0.3, Basophils # (Auto) 0.1, Sodium Level 143, Potassium Level 4.2, Chloride Level 107, Carbon Dioxide Level 26, Anion Gap 10, Blood Urea Nitrogen 11, Creatinine 0.72, Estimat Glomerular Filtration Rate > 60, BUN/Creatinine Ratio 15, Glucose Level 85, Calcium Level 8.8, Corrected Calcium 9.4, Total Bilirubin 0.3, Aspartate Amino Transf (AST/SGOT) 20, Alanine Aminotransferase (ALT/SGPT) 11, Alkaline Phosphatase 61, Total Protein 6.3L, Albumin 3.3 Pending Labs Laboratory Tests 12/14/19 05:25: White Blood Count 8.4, Red Blood Count 3.16, Hemoglobin 10.3, Hematocrit 31, Mean Corpuscular Volume 98, Mean Corpuscular Hemoglobin 33, Mean Corpuscular Hemoglobin Concent 33, Red Cell Distribution Width 14.2, Platelet Count 280, Mean Platelet Volume 10.4, Neutrophils (%) (Auto) 65, Lymphocytes (%) (Auto) 17, Monocytes (%) (Auto) 14, Eosinophils (%) (Auto) 3, Basophils (%) (Auto) 0, Neutrophils # (Auto) 5.5, Lymphocytes # (Auto) 1.4, Monocytes # (Auto) 1.2, Eosinophils # (Auto) 0.3, Basophils # (Auto) 0.0, Sodium Level 143, Potassium Level 3.8, Chloride Level 110, Carbon Dioxide Level 24, Anion Gap 9, Blood Urea Nitrogen 13, Creatinine 0.69, Estimat Glomerular Filtration Rate > 60, BUN/Creatinine Ratio 19, Glucose Level 94, Calcium Level 8.5, Corrected Calcium 9.1, Iron Level 23, Total Bilirubin 0.6, Aspartate Amino Transf (AST/SGOT) 23, Alanine Aminotransferase (ALT/SGPT) 13, Alkaline Phosphatase 63, Total Protein 6.4, Albumin 3.2 12/20/19 06:00: White Blood Count 7.9, Red Blood Count 3.17, Hemoglobin 10.2, Hematocrit 32, Mean Corpuscular Volume 100, Mean Corpuscular Hemoglobin 32, Mean Corpuscular Hemoglobin Concent 32, Red Cell Distribution Width 14.3, Platelet Count 479, Mean Platelet Volume 9.4, Neutrophils (%) (Auto) 61, Lymphocytes (%) (Auto) 22, Monocytes (%) (Auto) 13, Eosinophils (%) (Auto) 4, Basophils (%) (Auto) 1, Neutrophils # (Auto) 4.8, Lymphocytes # (Auto) 1.7, Monocytes # (Auto) 1.0, Eosinophils # (Auto) 0.3, Basophils # (Auto) 0.1, Sodium Level 143, Potassium Level 4.2, Chloride Level 107, Carbon Dioxide Level 26, Anion Gap 10, Blood Urea Nitrogen 11, Creatinine 0.72, Estimat Glomerular Filtration Rate > 60, BUN/ Creatinine Ratio 15, Glucose Level 85, Calcium Level 8.8, Corrected Calcium 9.4, Total Bilirubin 0.3, Aspartate Amino Transf (AST/SGOT) 20, Alanine Aminotransferase (ALT/SGPT) 11, Alkaline Phosphatase 61, Total Protein 6.3, Albumin 3.3 Discharge Home Medications: Active Scripts Active Gabapentin 100 Mg Capsule 300 Mg PO HS Acetaminophen 500 Mg Tablet 1,000 Mg PO Q8H Eliquis (Apixaban) 2.5 Mg Tablet 2.5 Mg PO BID Ferrous Sulfate 325 Mg Tablet 325 Mg PO Q48H Cyclobenzaprine HCl 10 Mg Tablet 10 Mg PO Q8H PRN Reported Calcium 600 + Vit D 800 Tab (Calcium Carbonate/Vitamin D3) 1 Each Tablet 1 Each PO 1200 Instructions to patient/family Please see electronic discharge instructions given to patient. Diagnosis/Problems Diagnosis/Problems (1) Status post right knee replacement (2) History of DVT of lower extremity (3) Anticoagulant prescribed (4) Arthritis (5) Advanced age (6) Atrial fib/flutter, transient (7) Breast cancer, right Clinical Quality Measures DVT/VTE Risk/Contraindication: Risk Factor Score Per Nursin RFS Level Per Nursing on Admit: 4+=Very High TONG GENTILE DO Dec 22, 2019 08:40
--- NOTE | 2019-12-22 08:59 | Therapy Team Discharge Summary ---
Therapy Discharge Summary Discharge Recommendations Date of Discharge Therapy D/C Recommendations: Physical Therapy Outpatient (or [facility] PT recommended) Physical Therapy This patient was admitted to ARU post acute hospital stay for an elective right TKR. 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 Upon admission to ARU, she required min assist with functional bed mobility and transfers and was able to walk 150 ft with FWW with CGA; she was able to ascend/descend 1 step with CGA. Treatment has focused on functional strength and ROM as well as balance and activity tolerance to improve bed mobiltiy, transfers and gait. At discharge, she is mod indep with gait, indep with bed mobility and transfers and able to ascend/descend 4 steps without assist. She has made excellent progress and is meeting all goals set at evaluation. Pt to discharge home this date. Occupational Therapy Decreased Activ Tolerance, Decreased UE Strength, Impaired I ADL's PT Penitentiary Goals First Breaker Feeder Goals PT Penitentiary Goals Time Frame: Jan 04, 2020 Roll Left to Right (QC): 6 Sit to Lying (QC): 6 Lying-Sitting on Side/Bed(QC): 6 Sit to Stand (QC): 6 Chair/Uzi-zy-Bylgx Xfer(QC): 6 Car Transfer (QC): 6 Walk 10 feet (QC): 6 Walk 10ft-Uneven Surface(QC): 6 Walk 50ft with 2 Turns (QC): 6 Walk 150 ft (QC): 6 All goals met to a satisfactory level. OT First Breaker Feeder Goals First Breaker Feeder Goals Time Frame: Dec 28, 2019 Eating (QC): 6 (met) Oral Hygiene (QC): 6 (met) Shower/Bathe Self (QC): 6 (not met, set up assist) Upper Body Dressing (QC): 6 (met) Lower Body Dressing (QC): 6 (met) On/Off Footwear (QC): 6 (met) Toileting Hygiene (QC): 6 (met) Toilet/Commode Transfer (QC): 6 Additional Goals: 1-Demonstrate ADL Tasks, 2-Verbalize Understanding, 3-ImproveStrength/Radha 1=Demonstrate adherence to instructed precautions during ADL tasks. 2=Patient will verbalize/demonstrate understanding of assistive devices/modifications for ADL. 3=Patient will improve strength/tolerance for activity to enable patient to perform ADL's. KEVIN HEDRICK PT Dec 22, 2019 08:59
--- NOTE | 2019-12-22 10:17 | D/C HH Face to Face Order ---
D/C Face to Face Orders Reconcile Patient Problems Problems Reviewed?: Yes Instructions for Patient [facility] [place] [facility] Patient Instructions/FollowUp: Dr Napier 1 week Ortho as scheduled Physician to follow Patient: Karthikeyan Discharge Diet for Home: No Restrictions Patient Problems: right knee replacement h/o DVT Goals for Patient: [place] Patient Data-Allergies,Ht & Wt Patient Allergies: Coded Allergies: tramadol (Verified Allergy, Intermediate, 12/13/19) Psychosis codeine (Verified Allergy, Mild, CODIENE, 12/10/18) Sulfa (Sulfonamide Antibiotics) (Verified Adverse Reaction, Mild, N/V, 12/14/18) meperidine (Verified Adverse Reaction, Mild, GI UPSET, 12/14/18) Height (Feet): 5 Height (Inches): 6.00 Weight (Pounds): 174 Weight (Ounces): 0.0 Home Health Need/Face to Face Date of Face to Face: Dec 22, 2019 Clinical Findings: Generalized weakness and fatigue, Instability, Muscle weakness, Pain with ambulation, Unsteady gait I have seen Pt [id number]: Yes Discharged To: Home Diagnosis/Conditions: right knee replacement h/o DVT Patient is Homebound due to: Chance fall risk due to instabilty, Muscle weakness, Pain w/ambulation Homebound Status Due to the above stated illness, injury or surgical procedure (medical condition or diagnosis) and associated clinical findings, the patient is homebound because of his/her inability to leave home except with aid of a supportive device and/or person AND leaving the home requires a considerable and taxing effort or is medically contraindicated. Pt req the following assistanc: [facility] Home Health Nursing Orders Home Health Services Order: Nursing Services (wound management), Shipping Specialist-Evaluate & Treat, Physical Therapy-Evaluate & Treat Certify Stmt I certify that this patient is under my care and that I, a nurse practitioner or a physician; a senior assistant manager working with me, had a face to face encounter that - meets the physician face to face encounter requirements with this patient as dated. TONG GENTILE DO Dec 22, 2019 10:17
--- NOTE | 2019-12-22 11:17 | NUR ---
provided prayer, Communion.
--- NOTE | 2019-12-22 12:41 | NUR ---
CM/SS DISCHARGE Patient discharged as planned back to her duplex at [facility] in [place]. HHC: Arranged with [facility] at [place] request, Medicare RN/PT/OT orders provided. Confirmed receipt with agency. IMM2 presented, signed, charted. Discharge has been planned over several days. Patient did first request outpatient therapy but then determined she would be more comfortable with HHC from [facility] Unit RN aware of all arrangements.
--- NOTE | 2019-12-23 15:01 | Therapy Team Discharge Summary ---
Therapy Discharge Summary Discharge Recommendations Date of Discharge Dec 22, 2019 at 11:30 Therapy D/C Recommendations: Physical Therapy Outpatient (or [facility] PT recommended) Occupational Therapy Pt admitted to ARU post acute hospital stay for elective R TKA. 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 At evaluation, pt was independent with feeding and oral hygiene, SBA with showering, Min A upper body dressing, CGA lower body dressing, min A footwear, and CGA with toileting. OT treatments focused on UE strengthening and functional endurance, and increasing safety and independence with ADLs/functional mobility. At discharge, pt required set up assistance with showering but was independent with all other ADLs. Pt made good progress, me eting all fpc goals except showering goal due to set up assist. She discharged home, discontinue OT services at this time. Decreased Activ Tolerance, Decreased UE Strength, Impaired I ADL's PT Longterm Goals Longterm Goals PT Product Marketing Specialist Goals Time Frame: Jan 04, 2020 Roll Left to Right (QC): 6 Sit to Lying (QC): 6 Lying-Sitting on Side/Bed(QC): 6 Sit to Stand (QC): 6 Chair/Afb-vo-Kahcu Xfer(QC): 6 Car Transfer (QC): 6 Walk 10 feet (QC): 6 Walk 10ft-Uneven Surface(QC): 6 Walk 50ft with 2 Turns (QC): 6 Walk 150 ft (QC): 6 OT Product Marketing Specialist Goals Product Marketing Specialist Goals Time Frame: Dec 28, 2019 Eating (QC): 6 (met) Oral Hygiene (QC): 6 (met) Shower/Bathe Self (QC): 6 (not met, set up assist) Upper Body Dressing (QC): 6 (met) Lower Body Dressing (QC): 6 (met) On/Off Footwear (QC): 6 (met) Toileting Hygiene (QC): 6 (met) Toilet/Commode Transfer (QC): 6 (Met) Additional Goals: 1-Demonstrate ADL Tasks, 2-Verbalize Understanding, 3- ImproveStrength/Radha 1=Demonstrate adherence to instructed precautions during ADL tasks. 2=Patient will verbalize/demonstrate understanding of assistive devices/modifications for ADL. 3=Patient will improve strength/tolerance for activity to enable patient to perform ADL's. PATRICIA FLORES OT Dec 23, 2019 15:01
== END 2019-12-22 11:30 | disposition home health service (06) | DRG 561 ==
PROVIDERS: ADMIT Internal Medicine; ATTEND Internal Medicine
DX: Z47.1 Aftercare following joint replacement surgery (principal); Z96.651 Presence of right artificial knee joint; M81.0 Age-related osteoporosis without current pathological fracture; Z85.3 Personal history of malignant neoplasm of breast; Z87.891 Personal history of nicotine dependence; Z86.718 Personal history of other venous thrombosis and embolism; Z90.710 Acquired absence of both cervix and uterus; Z79.01 Long term (current) use of anticoagulants
CPT/HCPCS: 36415; 80053; 83540; 85025; 94664